=== PATIENT | female | born 1950 | race Caucasian/White ===

== ENCOUNTER 2021-07-23 16:28 | Inpatient (IN) | payer OTHER, SELFPAY ==
--- NOTE | ~2021-07-23 | CT_ITS ---
EXAMINATION: CT ANGIOGRAM OF THE CHEST WITH AND WITHOUT CONTRAST (CT PULMONARY ANGIOGRAM FOR PE) CLINICAL INFORMATION: Hypoxia, Covid. COMPARISON: Multiple priors. Most recent chest radiograph dated from 07/29/2021. TECHNIQUE: Prior to contrast administration, noncontrast localization images were obtained. Subsequently, multidetector volumetric imaging was performed from the thoracic inlet to below the diaphragms following the administration of 65 mL Omnipaque 350 intravenous contrast. No contrast reaction reported Sagittal, coronal, and MIP oblique sagittal reformatted images were obtained on the CT workstation, uploaded to PACS, and reviewed. This CT examination was performed using dose optimization techniques as appropriate, variously including the following: *Automated exposure control *Adjustment of mA and/or kV according to patient size (this includes techniques or standardized protocols for targeted exams where dose is matched to indication/reason for exam; i.e. extremities or head) *Use of iterative reconstruction technique Total exam dose-length product 401 mGy-cm FINDINGS: QUALITY OF STUDY/CONTRAST BOLUS: Suboptimal. The examination is limited by motion and overlying multifocal airspace opacities. Additionally, the attenuation achieved within the pulmonary arteries is somewhat lesser than for an ideal examination. There is also significant streak artifacts and beam hardening posterior to the superior vena cava which obscure the right main pulmonary artery. PULMONARY ARTERIES: As above, examination is significantly limited. There is a large filling defect within or adjacent to the origin of right superior lobar artery (image 199 of series 7) which could represent an emboli although evaluation is limited by motion and streak artifacts from the superior vena cava. THORACIC AORTA: Scattered atherosclerotic disease. The ascending thoracic aorta measures up to 3.9 cm in diameter. LUNG: Multifocal airspace opacities and small bilateral pleural effusions. No pneumothorax. The central airways are patent. MEDIASTINUM: Cardiomegaly. Coronary calcifications. No pericardial effusion. No mediastinal or hilar lymphadenopathy. No evidence of septal bowing or right heart strain. CHEST WALL/AXILLA: No axillary or internal mammary lymphadenopathy. OSSEOUS STRUCTURES: No acute or suspicious osseous abnormality. Thoracic spondylosis. UPPER ABDOMEN: Partially visualized cholelithiasis. No reflux of contrast into the hepatic veins to suggest elevated right heart pressures. CT/CT angio chest PE protocol IMPRESSION: Limited examination as above. There is an equivocal thrombus within the right superior lobar artery. Recommend repeat imaging to ensure accuracy of these findings. Multifocal airspace opacities and bilateral pleural effusions. Cholelithiasis. VTE: indeterminate This critical result was discussed with Dr Boss at 07/31/2021 9:09 PM and it was ascertained that the content and urgency of the report was understood at the time of direct communication.
--- NOTE | ~2021-07-23 | XR_ITS ---
EXAMINATION: XR CHEST CLINICAL INFORMATION: Covid infection. Low oxygen saturation COMPARISON: Previous chest x-ray most recent 07/23/2021 TECHNIQUE: Frontal view of the chest was obtained. FINDINGS: The cardiac and mediastinal contours are stable. There are new bilateral lower lung infiltrates compatible with Covid pneumonia. There is no pleural effusion or pneumothorax. There are degenerative changes of the spine. XR/XR chest 1V IMPRESSION: New bilateral pulmonary infiltrates compatible with Covid pneumonia.
--- NOTE | ~2021-07-23 | CT_ITS ---
EXAMINATION: CT ANGIOGRAM OF THE CHEST WITH AND WITHOUT CONTRAST (CT PULMONARY ANGIOGRAM FOR PE) CLINICAL INFORMATION: Prior CTA equivocal for VTE. COMPARISON: None TECHNIQUE: Prior to contrast administration, noncontrast localization images were obtained. Subsequently, multidetector volumetric imaging was performed from the thoracic inlet to below the diaphragms following the administration of 65 mL Omnipaque 350 intravenous contrast. Sagittal, coronal, and MIP oblique sagittal reformatted images were obtained on the CT workstation, uploaded to PACS, and reviewed. This CT examination was performed using dose optimization techniques as appropriate, variously including the following: *Automated exposure control *Adjustment of mA and/or kV according to patient size (this includes techniques or standardized protocols for targeted exams where dose is matched to indication/reason for exam; i.e. extremities or head) *Use of iterative reconstruction technique Total exam dose-length product 103 mGy-cm. FINDINGS: QUALITY OF STUDY/CONTRAST BOLUS: Satisfactory. PULMONARY ARTERIES: The previously identified suspected filling defect involving the right superior lobar pulmonary artery is not clearly identified on the present exam. There are no definite pulmonary emboli identified in the lobar or segmental pulmonary arteries. THORACIC AORTA: No aneurysm or dissection. LUNG: The diffuse patchy consolidation throughout both lungs is much improved. There are scattered smaller focal areas of consolidation and some scattered patchy ground-glass opacities. PLEURA: No pleural effusion or pneumothorax. MEDIASTINUM: Normal heart size. No pericardial effusion. No hilar or mediastinal lymphadenopathy. No evidence of septal bowing or right heart strain. CHEST WALL/AXILLA: No axillary or internal mammary lymphadenopathy. OSSEOUS STRUCTURES: No acute or suspicious osseous abnormality. UPPER ABDOMEN: Unremarkable. No reflux of contrast into the hepatic veins to suggest elevated right heart pressures. CT/CT angio chest PE protocol IMPRESSION: 1. No evidence of pulmonary emboli. 2. Marked interval improvement in diffuse patchy consolidation in both lungs. VTE: Negative
--- NOTE | ~2021-07-23 | US_ITS ---
EXAMINATION: US VENOUS WITH DOPPLER UPPER EXTREMITY, BILATERAL CLINICAL INFORMATION: Question PE. COMPARISON: CT angiogram 07/31/2021 and nuclear medicine perfusion scan 08/01/2021 TECHNIQUE: Ultrasound of the upper extremity is performed using compression sonography and color and pulse Doppler flow with assessment of augmentation of flow. There is also imaging and Doppler assessment of the jugular and subclavian veins. Spectral analysis with color-flow imaging is performed. FINDINGS: The right internal jugular, subclavian, axillary, brachial and basilic veins are patent. The cephalic vein is not visualized. The left internal jugular, subclavian, axillary, cephalic, basilic and brachial veins are patent. US/US venous duplex UE BI IMPRESSION: No DVT demonstrated in the bilateral upper extremities.
--- NOTE | ~2021-07-23 | US_ITS ---
EXAMINATION: US VENOUS ULTRASOUND WITH DOPPLER LOWER EXTREMITY, BILATERAL CLINICAL INFORMATION: Question PE COMPARISON: Previous CTA July 31 and Comparison perfusion scan 08/01/2021 TECHNIQUE: Ultrasound of the deep veins is performed from the hip to the calf with compression sonography and color and pulse Doppler assessment. Spectral analysis with color-flow imaging is performed. FINDINGS: RIGHT: There is normal venous compression and respiratory variation and augmented flow. The visualized common femoral vein, superficial femoral vein, profunda femoral vein, popliteal vein, and the trifurcation region shows no evidence of deep venous thrombosis. There is no significant popliteal fossa cyst. LEFT: There is normal venous compression and respiratory variation and augmented flow. The visualized common femoral vein, superficial femoral vein, profunda femoral vein, popliteal vein, and the trifurcation region shows no evidence of deep venous thrombosis. There is no significant popliteal fossa cyst. US/US venous duplex LE BI IMPRESSION: No DVT demonstrated in the bilateral lower extremity.
--- NOTE | ~2021-07-23 | XR_ITS ---
EXAMINATION: XR CHEST CLINICAL INFORMATION: Fever. Low O2. Covid positive. COMPARISON: Chest 07/26/2021. TECHNIQUE: Frontal view of the chest was obtained. FINDINGS: The lungs are hypoexpanded with patchy opacity seen in the right midlung, right lower lobe and lingular segments. Both upper lobes are unremarkable. The heart size and progress clarities normal. No gross bony abnormality seen. XR/XR chest 1V IMPRESSION: Bilateral lower lobe and right middle lobe patchy opacity/infiltrate slightly worse compared to 07/26/2021
--- NOTE | ~2021-07-23 | XR_ITS ---
EXAMINATION: XR CHEST CLINICAL INFORMATION: Covid. COMPARISON: Chest x-ray 01/02/2019, 03/04/2018 TECHNIQUE: Frontal portable view of the chest was obtained. 5:14 PM FINDINGS: There are several subtle small patchy airspace opacities in the mid peripheral right and left lung consistent with history of Covid positive. No pleural effusion. No pneumothorax. The heart size is normal. Cardiac and sternal contours normal. No pulmonary vascular congestion. XR/XR chest 1V IMPRESSION: Subtle multifocal bilateral airspace opacities consistent with history of Covid positive.
--- NOTE | ~2021-07-23 | NM_ITS ---
EXAMINATION: RADIONUCLIDE PULMONARY PERFUSION STUDY CLINICAL INDICATION: Hypoxia, AK I, shortness of breath, COVID-19. COMPARISON: No previous lung scan is available for comparison. A radiograph of the chest dated 07/29/[address] angiogram of the chest dated 07/31/2021 are available for comparison. PROCEDURE: Following the intravenous administration of 4.0 millicuries technetium 99m MAA, images of the chest were obtained in multiple projections using a gamma scintophoto camera. PERFUSION IMAGES: No segmental perfusion defects are present. Some heterogeneity in the distribution of activity is present bilaterally, slightly more prominently on the right. There are no focal or anatomic appearing perfusion defects. NM/NM pul perfusion IMPRESSION: Very low probability of pulmonary embolism.
[2021-07-23 16:37] VITALS: BP 132/108; PULSE 85; RESP 16; TEMP 37; O2SAT 98; BMI 26.1
--- NOTE | 2021-07-23 16:44 | ED.GENADULT ---
HPI - General Adult General Chief complaint: Altered Mental Status Stated complaint: ams Time Seen by Provider: 07/23/21 16:42 Source: EMS Mode of arrival: EMS Limitations: other (dementia) History of Present Illness HPI narrative: Patient history of dementia came from home stent by ICE PULLER as she noticed little bit off and confused. And had difficulty in getting to the wheelchair. Details are not available. Patient was tested COVID 19 positive 1 week ago. Patient otherwise alert awake oriented to x1 no obvious shortness of breath or distress noticed Related Data Allergies Allergy/AdvReac Type Severity Reaction Status Date / Time No Known Allergies Allergy Unverified 05/02/20 17:41 [No Known Allergies*] Review of Systems Review of Systems: Yes all other systems are reviewed and are negative [facility] Social History Social History Advance Directives: No Advance Directives Information Provided: No Physical Exam Vital Signs: Vital Signs: Last Vital Signs Temp 97.9 F 07/23/21 23:40 Pulse 97 07/23/21 23:40 Resp 18 07/23/21 23:40 BP 157/76 H 07/23/21 23:40 Pulse Ox 96 07/23/21 23:40 BMI result Body Mass Index 26.1 Appearance: Alert. Oriented X1. No acute distress. Eyes: No pallor or icterus HEENT: Pharynx normal. Oral Mucosa moist atraumatic Neck: Normal inspection. Neck supple. CVS: Normal heart rate and rhythm. Pulses normal. Respiratory: No respiratory distress. Equal air entry bilateral, no wheezing/rales/rhonchi Abdomen: Soft and nontender. Bowel sounds are present, Skin: Skin warm and dry. Normal skin color. Normal skin turgor. Extremities: No lower extremity edema. No calf tenderness Neuro: Oriented X 3. No motor deficit. No sensory deficit.No cerebellar signs , cranial nerves II-XII intact Medical Decision Making MDM Narrative Medical decision making narrative: Patient with COVID-19 with increased weakness labs are stable patient saturating 98% at room air increased weakness and difficulty in ambulation, no ICE PULLER at home , comes on during daytime unable to send the patient home without much family support will consult case management for disposition tomorrow Lab Data Lab results reviewed: Yes I reviewed the patient's lab results. Result diagrams: 07/23/21 17:04 07/23/21 17:46 Labs: Lab Results 07/23/21 07/23/21 07/23/21 Range/Units 17:04 17:04 17:46 WBC 3.3 L (4.8-10.8) X10*3/uL RBC 3.67 L (4.20-5.50) X10*6/uL Hgb 11.9 L (12.0-16.0) g/dl Hct 37.3 (37.0-47.0) % MCV 101.6 H (80.0-98.0) fL MCH 32.4 (27.0-33.0) pg MCHC 31.9 (31.0-35.0) g/dl RDW 12.4 (11.0-16.0) % Plt Count 157 L (160-400) X10*3/uL MPV 10.3 (9.4-12.3) fL Immature Gran % (Auto) 0.6 H (0.0-0.4) % Neut % (Auto) 79.5 H (45-73) % Lymph % (Auto) 13.0 L (20-40) % [place] % (Auto) 6.9 (2-11) % Eos % (Auto) 0.0 (0-4) % Baso % (Auto) 0.0 (0-2) % Lymph # (Auto) 0.4 L (1.2-4.9) X10*3/uL [place] # (Auto) 0.2 (0.1-1.2) X10*3/uL Eos # (Auto) 0.0 (0.0-0.4) X10*3/uL Baso # (Auto) 0.0 (0.0-0.2) X10*3/uL Abs Immat Gran (auto) 0.02 (0.00-0.03) X10*3/uL Absolute Neuts (auto) 2.6 (2.0-8.3) x10*3/uL Absolute Nucleated RBC 0.000 (0.0-0.012) X10*3/uL Nucleated RBC % (auto) 0.0 (0.0-0.2) /100WBC D-Dimer High Sensitivty NG/ML Sodium 145 (135-145) mmol/L Potassium 4.2 (3.3-5.1) mmol/L Chloride 101 (96-108) mmol/L Carbon Dioxide 31 H (22-29) mmol/L Anion Gap 17 (12-20) BUN 53 H (9-16) mg/dL Creatinine 1.26 (0.5-1.4) mg/dL Estim Creat Clear Calc 41.7 Estimated GFR 42 Random Glucose 90 (60-115) mg/dL Calcium 8.8 (8.4-10.2) mg/dL Magnesium 2.0 (1.6-2.6) mg/dL Total Bilirubin < 0.2 (0.0-1.0) mg/dL AST 30 (5-31) U/L ALT 23 (0-31) U/L Alkaline Phosphatase 41 (39-117) U/L Total Protein 5.7 L (6.5-8.0) g/dL Albumin 3.8 (3.5-5.0) g/dL Urine Color Urine Appearance Urine pH (5.0-8.0) Ur Specific [place] (1.005-1.025) Urine Protein (NEG-TRACE) MG/DL Urine Glucose (UA) (NEG) MG/DL Urine Ketones (NEG) MG/DL Urine Blood (NEG) Urine Nitrite (NEG) Ur Leukocyte Esterase (NEG) COVID-19 (DAMIÁN) Positive A (Negative) COVID-19 Clin Com See Note 07/23/21 07/23/21 Range/Units 17:46 20:48 WBC (4.8-10.8) X10*3/uL RBC (4.20-5.50) X10*6/uL Hgb (12.0-16.0) g/dl Hct (37.0-47.0) % MCV (80.0-98.0) fL MCH (27.0-33.0) pg MCHC (31.0-35.0) g/dl RDW (11.0-16.0) % Plt Count (160-400) X10*3/uL MPV (9.4-12.3) fL Immature Gran % (Auto) (0.0-0.4) % Neut % (Auto) (45-73) % Lymph % (Auto) (20-40) % [place] % (Auto) (2-11) % Eos % (Auto) (0-4) % Baso % (Auto) (0-2) % Lymph # (Auto) (1.2-4.9) X10*3/uL [place] # (Auto) (0.1-1.2) X10*3/uL Eos # (Auto) (0.0-0.4) X10*3/uL Baso # (Auto) (0.0-0.2) X10*3/uL Abs Immat Gran (auto) (0.00-0.03) X10*3/uL Absolute Neuts (auto) (2.0-8.3) x10*3/uL Absolute Nucleated RBC (0.0-0.012) X10*3/uL Nucleated RBC % (auto) (0.0-0.2) /100WBC D-Dimer High Sensitivty < 150 NG/ML Sodium (135-145) mmol/L Potassium (3.3-5.1) mmol/L Chloride (96-108) mmol/L Carbon Dioxide (22-29) mmol/L Anion Gap (12-20) BUN (9-16) mg/dL Creatinine (0.5-1.4) mg/dL Estim Creat Clear Calc Estimated GFR Random Glucose (60-115) mg/dL Calcium (8.4-10.2) mg/dL Magnesium (1.6-2.6) mg/dL Total Bilirubin (0.0-1.0) mg/dL AST (5-31) U/L ALT (0-31) U/L Alkaline Phosphatase (39-117) U/L Total Protein (6.5-8.0) g/dL Albumin (3.5-5.0) g/dL Urine Color YELLOW Urine Appearance CLEAR Urine pH 6.0 (5.0-8.0) Ur Specific [place] 1.025 (1.005-1.025) Urine Protein TRACE (NEG-TRACE) MG/DL Urine Glucose (UA) NEG (NEG) MG/DL Urine Ketones 5 (NEG) MG/DL Urine Blood NEG (NEG) Urine Nitrite NEG (NEG) Ur Leukocyte Esterase NEG (NEG) COVID-19 (DAMIÁN) (Negative) COVID-19 Clin Com Discharge Plan Discharge Clinical Impression: COVID-19, Weakness
[2021-07-23] MEDS: 0.9 % Sodium Chloride 1,000 ML 999 ML IVCONT (17:05)
[2021-07-23 17:09] LABS: MANUAL DIFF FLAG NO
[2021-07-23 17:11] LABS: Hematocrit 37.3 % (37.0-47.0); Hemoglobin 11.9 g/dl (12.0-16.0); Imm Gran Abs Auto 0.02 X10*3/uL (0.00-0.03); Imm Gran Pct Auto 0.6 % (0.0-0.4); Lymphocytes Absolute Auto 0.4 X10*3/uL (1.2-4.9); Mean Corpuscular HGB Conc 31.9 g/dl (31.0-35.0); Mean Corpuscular Hemoglobin 32.4 pg (27.0-33.0); Mean Corpuscular Volume 101.6 fL (80.0-98.0); Mean Platelet Volume 10.3 fL (9.4-12.3); Monocytes Absolute Auto 0.2 X10*3/uL (0.1-1.2); Monocytes Percent Auto 6.9 % (2-11); Neutrophils Absolute Auto 2.6 x10*3/uL (2.0-8.3); Neutrophils Percent Auto 79.5 % (45-73); Platelet Count 157 X10*3/uL (160-400); Red Blood Count 3.67 X10*6/uL (4.20-5.50); Red Cell Distribution Width 12.4 % (11.0-16.0); White Blood Count 3.3 X10*3/uL (4.8-10.8)
[2021-07-23 17:27] LABS: COVID-19 Test Positive (Negative); IDNOW Serial# 08D9AD1C
[2021-07-23 17:59] LABS: D Dimer High Sensitivity < 150 NG/ML
[2021-07-23 18:02] VITALS: BP 138/92; PULSE 86; RESP 16; TEMP 36.8; O2SAT 96
[2021-07-23 18:18] LABS: Alanine Aminotransferase 23 U/L (0-31); Albumin Level 3.8 g/dL (3.5-5.0); Alkaline Phosphatase 41 U/L (39-117); Anion Gap 17 (12-20); Aspartate Amino Transferase 30 U/L (5-31); Bilirubin Total < 0.2 mg/dL (0.0-1.0); Blood Urea Nitrogen 53 mg/dL (9-16); Calcium 8.8 mg/dL (8.4-10.2); Carbon Dioxide 31 mmol/L (22-29); Chloride 101 mmol/L (96-108); Creatinine Clr Calc Pharmacy 41.7; Estimated Glomerular Filt Rate 42; Glucose Random 90 mg/dL (60-115); Potassium 4.2 mmol/L (3.3-5.1); Sodium 145 mmol/L (135-145); Total Protein 5.7 g/dL (6.5-8.0)
[2021-07-23 19:52] VITALS: BP 174/89; PULSE 87; RESP 14; O2SAT 97
[2021-07-23 20:55] LABS: Appearance Urine CLEAR; Color Urine YELLOW; Glucose Urine UA NEG (NEG); Leukocyte Esterase Urine NEG (NEG); Nitrite Urine NEG (NEG); Specific Gravity - Urine 1.025 (1.005-1.025); Urine Blood NEG (NEG); Urine Ketones 5 MG/DL (NEG); Urine Protein TRACE MG/DL (NEG-TRACE)
--- NOTE | 2021-07-23 23:19 | MHC.CM.ED ---
CM was requested to assess patient and situation for pt to be discharged to home. Pt has dementia and MS. Pt is Covid positive x1week. HCP on file is pt sister Noy Sloan ([phone]). Noy does not know who the [employer] is, but does not believe she has [employer]IDE [employer]'s at night. Pt uses a W/C and was too weak to transfer to W/C. Noy does not know what agency provides care for her sister. States she no longer drives and cannot help much. Primary contact listed is Claudia Ruiz, who is a friend. Per Geo RN, he spoke with Claudia earlier this evening and said that pt cousin Andrew is the HCP and [employer]. [phone]. Will need to call Andrew in the morning, as pt is not safe to discharge home alone tonight. Dr. Hurd and Geo aware. CM will continue to follow for d/c needs.
[2021-07-23 23:40] VITALS: BP 157/76; PULSE 97; RESP 18; TEMP 36.6; O2SAT 96
[2021-07-24] VITALS (7 sets, daily range): BP systolic 147–177; BP diastolic 90–107; PULSE 100–115; RESP 16–19; TEMP 36.6–37.9; O2SAT 94–96
--- NOTE | 2021-07-24 08:00 | PC.NURSE ---
justina santiago from the home care agency called and would like a call back from case management after pt sees the pt [phone]
--- NOTE | 2021-07-24 08:48 | MHC.CM.ED ---
Patient remains in ER. Physical therapy eval pending. Left voicemail for Krysten Gtz at [facility] via telephone at [phone], requesting copy of patient's med list. Continue to monitor for d/c needs.
--- NOTE | 2021-07-24 10:18 | MHC.CM.ED ---
Received return telephone call from Krysten of [facility]. They will authorize rehab. They are [facility] None of these facilities are able to offer a bed due to Covid status. [facility] will allow referral to be broadcasted in order to find placement for patient. They will authorize a 1 time contract. Referral broadcasted to all facilities listed in [facility] as accepting positive covid patients within 15 miles of patient's home. Continue to monitor for d/c needs.
--- NOTE | 2021-07-24 10:41 | PHA.MEDREC ---
Pharmacy Consult ? Medication Reconciliation Pharmacy has completed the medication reconciliation.
--- NOTE | 2021-07-24 11:35 | MHC.CM.ED ---
[facility] will be able to consider patient on 07/26. [facility] able [facility] consider patient on 07/27. Continue to monitor for d/c needs.
--- NOTE | 2021-07-24 15:34 | PC.NURSE ---
Pt repositioned and inc care provided. Awaiting dispo, no complaints of pain at this time. Will continue to monitor.
--- NOTE | 2021-07-24 19:19 | PC.NURSE ---
PATIENT WAS GIVEN A BED BATH ,PATIENT WAS INCONTINENT OF URINE TIMES ONE .
--- NOTE | 2021-07-24 19:20 | PC.NURSE ---
PATIENT COULD NOT CHEW HER FOOD ,SO PBJ WAS GIVEN WITH APPLE JUICE AND MILK ,PATIENT NEEDED TO BE FED .
--- NOTE | 2021-07-24 22:53 | PC.NURSE ---
Noted by Melvin, EDT that pt needs 1:1 for feeding and has difficulty chewing. Alexa also endorsed that pt has frequent coughing w/ PO fluid intake. Speech eval ordered per protocol, situation endorsed to case mgmt team
[2021-07-25] VITALS (7 sets, daily range): BP systolic 140–156; BP diastolic 61–98; PULSE 80–109; RESP 14–17; TEMP 36.9–37.8; O2SAT 92–97
--- NOTE | 2021-07-25 02:21 | PC.NURSE ---
This PCT and PCT Lilia changed pt pure wick. Put on mesh underwear to help hold pure wick in place. Gave orange juice and made pt comfortable. Pt currently sleeping.
--- NOTE | 2021-07-25 06:09 | PC.NURSE ---
Checked pt to see if dry. She was dry pure wick still in place. Updated vitals. Pt has a 99.5 temp. Took one cover off.
[2021-07-25] MEDS: Acetaminophen 325 MG TABLET 650 MG PO (10:10)
--- NOTE | 2021-07-25 10:16 | PC.NURSE ---
pt given tylenol with water, swallowed but multiple coughing after swallowing. pt will be npo until swallow eval.
--- NOTE | 2021-07-25 13:17 | MHC.SL.SWA ---
Speech Pathologist Impression: Risk of Aspiration Oralpharyngeal Dysphagia Risk of Aspiration Due to: Reduced Cognition Dysphasia Diet Status: Downgrade Liquid Consistency and Strategies for Safe Swallow: Liquid Intake Recommendation: [place] Thick Liquid Intake Strategies: Small Sips No Straws Solid Food Consistency: Dietary Recommendations: Grnd/Mech Altered (NDD2) Additional Modifications to Solid Foods: Recommend GROUND/MECH ALTERED (NDD2) solids and NECTAR THICK liquids with pills CRUSHED in PUREE. Patient requires total 1:1 assistance feeding due to tremor of upper extremities and discoordination. Recommend aspiration precautions and following strategies: -small individual sips by cup or teaspoon -no straw -small bites of food -moisten food with sauce/gravy -check oral cavity for residue/pocketing -alternate bite of food with sip of liquid or cues for dry swallow -ensure oral cavity is clear before presenting more bites -upright 90 degree position during meals -minimize distractions during meals Message sent to MD, RD, RN, and kitchen staff RE: this change in diet textures. ADMINISTRATIVE SPECIALIST will continue to follow. Oral Medication Intake: Crushed with Puree Compensatory Strategies and Precautions to be Taken for Safe Swallow: Sitting Upright (90 deg) Double Swallow No Straw Liquids from Cup Liquids from Spoon Small Bites and Sips Alternate Liquids/Solids Rate of Ingestion Change Oral Check Supervision While Eating and Drinking for Safe Swallow: Total Assistance Swallowing Recommended Treatments: Compens. Strategy Educat. Recommendation for Speech: Inpatient Speech Therapy [employer] Et[employer] Developer Clinican/Clinical Fellow: No Supervisory Statement: I have reviewed and agree with the student/clinical fellow's documentation: N/A Speech Language Pathologist: Roro Barajas M.A., CCC-ADMINISTRATIVE SPECIALIST
--- NOTE | 2021-07-25 13:47 | MHC.CM.ED ---
Addendum entered by Vonnie Stokes 07/25/21 13:51: Auth for BLS transport has been authorized by [facility]. Original Note: Krysten Gtz of [facility] aware patient still in ER. Auth will have to be obtained over the weekend for placement by calling the primary [facility] program via telephone at [phone]. T/W reached out to [facility] to see if they are going to be able to offer a bed on 07/16. Still waiting to hear. Continue to monitor for d/c needs.
--- NOTE | 2021-07-25 14:09 | PC.NURSE ---
per speech: pt recommended diet is: ground/mech altered (nnd2) solids and netar thick liquids with pills crushed in puree. pt requires total 1:1 assistance feeding due to tremor of upper extremities and disco-ordination. recommend aspiration
--- NOTE | 2021-07-25 19:06 | PC.NURSE ---
PATIENT IS A 1:1 FEED ,PATIENT ATE 50 % OF MEALS ,DRANK 360 ML LIQUIDS .
--- NOTE | 2021-07-25 19:07 | PC.NURSE ---
PATIENT WAS GIVEN A BED BATH ,PATIENT WAS INCONTINENT OF LARGE AMOUNT OF URINE .
--- NOTE | 2021-07-25 22:17 | PC.NURSE ---
PATIENT WAS INC OF URINE ,PATIENT WAS CLEAN UP ,BEDDING WAS CHANGE ,PATIENT DRANK TOW CUPS OF JUICE ,NOW WATCHING TELEVISION .
--- NOTE | 2021-07-25 22:30 | PC.NURSE ---
I assumed care of this patient at 1900 from NABIL Gutierrez. The pt is awake, alert, oriented to person and place but not to time ( it's the year of the lord when asked the date). She makes eye contact with Rn and continually asks for juice to drink. She requires thickened liquids for PO fluids and we have provided her with thickened juice and remained with her while she takes it. I am unable to obtain an oxygen saturation with an accurate pleth on this patient - I attempted to place multiple different sensors on toes and fingers and her earlobe without being able to obtain an accurate pleth. there is no cyanosis, she is speaking in full sentences, RR 16 and non-labored. I placed 2L via nasal cannula and will continue to monitor. O2 sat with as bad pleth on the bedside monitor reveals a sat of 89% on room air. but, again, I am unsure of its accuracy. Will notify hospitalist and leave any further intervention up to him.
--- NOTE | 2021-07-25 22:40 | PC.NURSE ---
see vital signs. forehead sensor obtained and it reveals an accurate room air pleth of 86%, 2L nasal cannula placed and O2 sats up to 96% on 2L
[2021-07-26 05:18] VITALS: BP 165/97; PULSE 109; RESP 14; TEMP 36.9; O2SAT 92
[2021-07-26 07:44] VITALS: BP 146/91; PULSE 105; RESP 20; TEMP 37.3; O2SAT 94
[2021-07-26] MEDS: Acetaminophen 325 MG TABLET 650 MG PO (08:00)
--- NOTE | 2021-07-26 10:16 | MHC.CM.ED ---
Patient remains in ER. Patient continues to be asymptomatic. [facility] not able [facility] offer [facility] bed before Wednesday. T/W reached out to [facility] to see if they can offer a bed tomorrow. Continue to monitor for d/c needs.
[2021-07-26] MEDS: carBAMazepine ER 200 MG TAB.ER.12H 400 MG PO ×2 (10:49→23:03)
[2021-07-26] MEDS: Gabapentin 300 MG CAPSULE PO (10:49)
[2021-07-26] MEDS: hydroCHLOROthiazide 12.5 MG TABLET PO (10:50)
[2021-07-26] MEDS: Divalproex Sodium 500 MG TABLET.DR PO (10:50)
[2021-07-26] MEDS: Venlafaxine HCl ER 150 MG CAP.ER.24H PO (10:50)
[2021-07-26] MEDS: Cholecalciferol (Vitamin D3) 25 MCG TABLET 125 MCG PO (10:50)
[2021-07-26] MEDS: Mycophenolate Sodium 180 MG TABLET.DR 720 MG PO (10:55)
[2021-07-26] MEDS: Chlorhexidine Gluc Oral Rinse 15 ML MOUTHWASH BUCCAL (11:02)
[2021-07-26 14:09] VITALS: O2SAT 97
[2021-07-26 18:50] VITALS: O2SAT 92
--- NOTE | 2021-07-26 18:50 | PC.NURSE ---
Patient alert but confused is redirectable. Pleasant patient gets around in wheelchair at home. purewick in place for voiding. Patient was on 1l nasal cannula increased to 3l nasal cannula tonight oxygen was dropping on 1l to 88%. now 91-93% on 3l nasal cannula. Will continue to monitor.
[2021-07-26 19:02] VITALS: BP 160/85; PULSE 112; RESP 20; O2SAT 92
[2021-07-26] MEDS: Atorvastatin Calcium 40 MG TABLET PO (23:06)
[2021-07-26] MEDS: Gabapentin 400 MG CAPSULE PO (23:09)
[2021-07-26] MEDS: Divalproex Sodium 250 MG TABLET.DR PO (23:09)
[2021-07-26] MEDS: Mycophenolate Sodium 180 MG TABLET.DR 360 MG PO (23:10)
[2021-07-27 07:39] VITALS: BP 138/74; PULSE 105; RESP 16; TEMP 37.1; O2SAT 86
--- NOTE | 2021-07-27 09:08 | PC.NURSE ---
Pt found to be on 3L NC with sat's in the high 80's, MP at bedside, pt is Alert and pleasant to person and place. Denies any pain or SOB. Plan for ABG, O2 4L NC in low 90's. Probably admission, pericare and repositioned. Awaiting further orders. Will continue to monitor.
[2021-07-27] MEDS: Venlafaxine HCl ER 150 MG CAP.ER.24H PO (09:31)
[2021-07-27] MEDS: Divalproex Sodium 500 MG TABLET.DR PO (09:31)
[2021-07-27] MEDS: hydroCHLOROthiazide 12.5 MG TABLET PO (09:31)
[2021-07-27] MEDS: dexAMETHasone sod phosphate 4 MG/ML VIAL 8 MG IVPUSH (09:31)
[2021-07-27] MEDS: Chlorhexidine Gluc Oral Rinse 15 ML MOUTHWASH BUCCAL ×2 (09:32→23:45)
[2021-07-27] MEDS: Gabapentin 300 MG CAPSULE PO (09:32)
[2021-07-27] MEDS: Cholecalciferol (Vitamin D3) 25 MCG TABLET 125 MCG PO (09:32)
[2021-07-27 09:51] LABS: MANUAL DIFF FLAG NO
[2021-07-27 09:55] LABS: Basophils Percent Auto 0.2 % (0-2); Hematocrit 37.6 % (37.0-47.0); Hemoglobin 11.7 g/dl (12.0-16.0); Imm Gran Abs Auto 0.04 X10*3/uL (0.00-0.03); Imm Gran Pct Auto 0.9 % (0.0-0.4); Lymphocytes Absolute Auto 0.6 X10*3/uL (1.2-4.9); Lymphocytes Percent Auto 12.8 % (20-40); Mean Corpuscular HGB Conc 31.1 g/dl (31.0-35.0); Mean Corpuscular Hemoglobin 31.8 pg (27.0-33.0); Mean Corpuscular Volume 102.2 fL (80.0-98.0); Mean Platelet Volume 9.9 fL (9.4-12.3); Monocytes Absolute Auto 0.2 X10*3/uL (0.1-1.2); Monocytes Percent Auto 4.2 % (2-11); Neutrophils Absolute Auto 3.7 x10*3/uL (2.0-8.3); Neutrophils Percent Auto 81.9 % (45-73); Platelet Count 186 X10*3/uL (160-400); Red Blood Count 3.68 X10*6/uL (4.20-5.50); White Blood Count 4.5 X10*3/uL (4.8-10.8)
--- NOTE | 2021-07-27 09:55 | MHC.CM.ED ---
Received notification from [facility] that patient's O2 sat has dropped and will be admitted. Krysten Gtz of [facility] and patient's cousin, Andrew made aware via telephone. Continue to monitor for d/c needs.
[2021-07-27 10:02] LABS: D Dimer High Sensitivity 400 NG/ML
--- NOTE | 2021-07-27 10:33 | P.HPHOSP_ITS ---
History of Present Illness Date of Service: 07/27/21 Attending physician on admission: Paul [facility] Chief Complaint: Hypoxia 71-year-old woman with history of dementia presented from home sent in by her DIRECTOR OF ACCOUNTING with confusion. Apparently patient tested positive for COVID-19 1 week ago. Initially the plan was to send patient to short-term rehab however after a day of care she was found to be hypoxic at 86% and increased work of breathing. Chest x-ray showed no infiltrates bilaterally consistent with COVID-19 she was placed on 4 L of oxygen and given IV Decadron. She denied chest pain, shortness of breath, nausea, vomiting, diarrhea, fever, chills. She will be admitted for further management and treatment of acute hypoxic respiratory failure secondary to COVID-19. Review of Systems Verdana 4l Review of Systems: Verdana 4d Verdana 4d Denies any recent fever chills or decrease in appetite respiratory denies any shortness of breath coverage production cardiovascular Denied chest pain gastrointestinal denies any dysphagia abdominal pain nausea vomiting or diarrhea genitourinarygenitourinary denies any dysuria frequency or hematuria musculoskeletal denies any joint pain or swelling neuropsych denies any weakness or seizures all other systems reviewed are negative [facility] Medical History (Updated 07/27/21 @ 11:53 by Maria Elena Monique NP) Anxiety Depression Hypertension Multiple sclerosis Seizure disorder Family History (Updated 07/27/21 @ 11:53 by Maria Elena Monique NP) Father Coronary artery disease Hypertension Surgical History (Updated 07/27/21 @ 11:53 by Maria Elena Monique NP) H/O cataract extraction H/O inguinal hernia repair H/O left knee surgery History of appendectomy Social History (Updated 07/27/21 @ 11:54 by Maria Elena Monique NP) Household Members: None Household Members Other:: has DIRECTOR OF ACCOUNTING assistance at home Alcohol intake: never Patient Tobacco Use Status: Never used Tobacco Use of substances other than those prescribed or required for medical reasons: No Advance Directives: Yes Advance Directives on File: Yes Advance Directives Date on File: 07/24/21 Meds Allergies Allergy/AdvReac Type Severity Reaction Status Date / Time No Known Allergies Allergy Unverified 05/02/20 17:41 [No Known Allergies*] Active Medications: Current Medications Acetaminophen (Acetaminophen 325 Mg Tablet) 650 mg PO BID PRN PRN Reason: Pain, Mild (Pain Scale 1-3) Atorvastatin Calcium (Atorvastatin Calcium 40 Mg Tablet) 40 mg PO BEDTIME [facility] Last Admin: 07/26/21 23:06 Dose: 40 mg Documented by: Calcium Carbonate (Calcium Carbonate 500 Mg Tablet) 1,000 mg PO BEDTIME [facility] Last Admin: 07/26/21 23:09 Dose: Not Given Documented by: Carbamazepine (Carbamazepine Er 200 Mg Tab.Er.12h) 400 mg PO BID [facility] Last Admin: 07/26/21 23:03 Dose: 400 mg Documented by: Chlorhexidine Gluconate (Chlorhexidine Gluc Oral Rinse 15 Ml Mouthwash) 15 ml BUCCAL BID [facility] Last Admin: 07/27/21 09:32 Dose: 15 ml Documented by: Dexamethasone Sodium Phosphate (Dexamethasone Sod Phosphate 4 Mg/Ml Vial) 6 mg IVPUSH DAILY [facility] Divalproex Sodium (Divalproex Sodium 250 Mg Tablet.) 250 mg PO BEDTIME [facility] Last Admin: 07/26/21 23:09 Dose: 250 mg Documented by: Divalproex Sodium (Divalproex Sodium 500 Mg Tablet.) 500 mg PO DAILY [facility] Last Admin: 07/27/21 09:31 Dose: 500 mg Documented by: Gabapentin (Gabapentin 300 Mg Capsule) 300 mg PO DAILY [facility] Last Admin: 07/27/21 09:32 Dose: 300 mg Documented by: Gabapentin (Gabapentin 400 Mg Capsule) 400 mg PO BEDTIME [facility] Last Admin: 07/26/21 23:09 Dose: 400 mg Documented by: Heparin Sodium (Porcine) (Heparin Sodium,Porcine 5,000 Unit/Ml Vial) 5,000 unit SUBCUT Q12H [facility] Hydrochlorothiazide (Hydrochlorothiazide 12.5 Mg Tablet) 12.5 mg PO DAILY [facility]; Protocol Last Admin: 07/27/21 09:31 Dose: 12.5 mg Documented by: Mycophenolate Sodium (Mycophenolate Sodium 180 Mg Tablet.) 360 mg PO BEDTIME [facility] Last Admin: 07/26/21 23:10 Dose: 360 mg Documented by: Mycophenolate Sodium (Mycophenolate Sodium 180 Mg Tablet.) 720 mg PO DAILY [facility] Last Admin: 07/26/21 10:55 Dose: 720 mg Documented by: Non-Formulary Medication (Methylphenidate Hcl [Concerta]) 36 mg PO DAILY [facility] Ondansetron HCl (Ondansetron Hcl 4 Mg/2 Ml Vial) 4 mg IVPUSH Q8H PRN PRN Reason: Nausea and Vomiting Pharmacy Consult (Consult Rx Perform Med Rec) 1 each MISCELLANE ONCE PRN PRN Reason: Consult order Sodium Chloride (0.9 % Sodium Chloride Flush 3 Ml Syringe) 3 ml IVFLUSH QSHIFT [facility] Venlafaxine HCl (Venlafaxine Hcl Er 150 Mg Cap.Er.24h) 150 mg PO DAILY [facility] Last Admin: 07/27/21 09:31 Dose: 150 mg Documented by: Vitamin D (Cholecalciferol (Vitamin D3) 25 Mcg Tablet) 125 mcg PO DAILY [facility] Last Admin: 07/27/21 09:32 Dose: 125 mcg Documented by: Home Medications Medication Instructions Recorded Confirmed Last Taken Type acetaminophen 500 1,000 mg PO BID 07/24/21 07/24/21 Unknown History mg capsule PRN atorvastatin 40 40 mg PO BEDTIME 07/24/21 07/24/21 Unknown History mg tablet calcium carbonate 1,000 mg PO 07/24/21 07/24/21 Unknown History 500 mg calcium BEDTIME (1,250 mg) tablet carbamazepine 400 400 mg PO BID 07/24/21 07/24/21 Unknown History mg tablet,extended release,12 hr (Tegretol XR) chlorhexidine 15 ml BUCCAL BID 07/24/21 07/24/21 Unknown History gluconate 0.12 % mouthwash (Peridex) cholecalciferol 125 mcg PO DAILY 07/24/21 07/24/21 Unknown History (vitamin D3) 125 mcg (5,000 unit) tablet (Vitamin D3) denosumab 60 60 mg SUBCUT 07/24/21 07/24/21 Unknown History mg/mL [id number] subcutaneous syringe (Prolia) divalproex 250 mg 250 mg PO 07/24/21 07/24/21 Unknown History tablet,delayed BEDTIME release (Depakote) divalproex 250 mg 500 mg PO DAILY 07/24/21 07/24/21 Unknown History tablet,delayed release (Depakote) gabapentin 300 mg 300 mg PO DAILY 07/24/21 07/24/21 Unknown History capsule gabapentin 400 mg 400 mg PO 07/24/21 07/24/21 Unknown History capsule BEDTIME hydrochlorothiazi 12.5 mg PO DAILY 07/24/21 07/24/21 Unknown History de 12.5 mg tablet ibuprofen 600 mg 600 mg PO DAILY 07/24/21 07/24/21 Unknown History tablet PRN iron,carbonyl 65 1 tab PO DAILY 07/24/21 07/24/21 Unknown History mg-vitamin C 125 mg tablet,delayed release (Vitron-C) methylphenidate 36 mg PO DAILY 07/24/21 07/24/21 Unknown History HCl 36 mg tablet,extended release 24 hr (Concerta) mycophenolate 360 mg PO 07/24/21 07/24/21 Unknown History sodium 360 mg BEDTIME tablet,delayed release (Myfortic) mycophenolate 720 mg PO DAILY 07/24/21 07/24/21 Unknown History sodium 360 mg tablet,delayed release (Myfortic) venlafaxine 150 150 mg PO DAILY 07/24/21 07/24/21 Unknown History mg tablet,extended release 24 hr Physical Exam Verdana 4l Vital Signs and Narrative: Verdana 4d Verdana 4d Vital Signs: Verdana 4d Verdana 4Bd Last Vital Signs Verdana 4d [employer] Management System Operator New 4d [employer] Management System Operator New 4d Temp 98.8 F 07/27/21 07:39 [employer] Management System Operator New 4d Pulse 105 H 07/27/21 07:39 [employer] Management System Operator NewNew 4d Resp 16 07/27/21 07:39 BP 138/74 07/27/21 07:39 Pulse Ox 86 L 07/27/21 07:39 BMI result Body Mass Index 26.1 Appearing in no acute distress head is normocephalic atraumatic eyes pupils are PERRLA sclera is anicteric mouth throat mucous membranes are intact and moist neck is supple no lymphadenopathy, no JVD noted lung sounds are clear to auscultation heart regular rate rhythm, clear S1, S2 positive bowel sounds, abdomen is soft, nontender neuro patient is alert x3, no focal deficits Results Labs CBC and Chem 7: 07/28/21 06:43 07/28/21 06:43 Labs: Laboratory Results - last 24 hr 07/27/21 07/27/21 09:46 09:46 MCV 102.2 H MCH 31.8 MCHC 31.1 RDW 13.0 Plt Count 186 MPV 9.9 Immature Gran % (Auto) 0.9 H Neut % (Auto) 81.9 H Lymph % (Auto) 12.8 L [place] % (Auto) 4.2 Eos % (Auto) 0.0 Baso % (Auto) 0.2 Lymph # (Auto) 0.6 L [place] # (Auto) 0.2 Eos # (Auto) 0.0 Baso # (Auto) 0.0 Abs Immat Gran (auto) 0.04 H Absolute Neuts (auto) 3.7 Absolute Nucleated RBC 0.000 Nucleated RBC % (auto) 0.0 D-Dimer High Sensitivty 400 Assessment and Plan (1) Hypoxia: Status: Acute (2) COVID-19: Status: Acute 71 year old women admitted with acute hypoxic respiratory failure secondary to COVID 19 Acute hypoxic respiratory failure secondary to COVID-19 Supplemental oxygen Decadron Id consult Hypertension. Stable blood pressure Continue hydrochlorothiazide Hyperlipidemia Continue statin Multiple sclerosis On immunosuppressive medications Anxiety/ depression Continue home medications DVT prophylaxis with Lovenox Attending Dr. Marshall Quality Stroke Does the patient have a stroke diagnosis?: No VTE Prior VTE?: No VTE Risk Level:: Medical - moderate - high VTE Device Contraindication: Treatment Not Indicated VTE Drug Contraindication: N/A - Med Ordered
--- NOTE | 2021-07-27 10:33 | PM.IMHP ---
History of Present Illness Date of Service: 07/27/21 Attending physician on admission: Paul [facility] Chief Complaint: Hypoxia 71-year-old woman with history of dementia presented from home sent in by her LADIES SUIT OPERATOR with confusion. Apparently patient tested positive for COVID-19 1 week ago. Initially the plan was to send patient to short-term rehab however after a day of care she was found to be hypoxic at 86% and increased work of breathing. Chest x-ray showed no infiltrates bilaterally consistent with COVID-19 she was placed on 4 L of oxygen and given IV Decadron. She denied chest pain, shortness of breath, nausea, vomiting, diarrhea, fever, chills. She will be admitted for further management and treatment of acute hypoxic respiratory failure secondary to COVID-19. Review of Systems Review of Systems: Denies any recent fever chills or decrease in appetite respiratory denies any shortness of breath coverage production cardiovascular Denied chest pain gastrointestinal denies any dysphagia abdominal pain nausea vomiting or diarrhea genitourinary denies any dysuria frequency or hematuria musculoskeletal denies any joint pain or swelling neuropsych denies any weakness or seizures all other systems reviewed are negative [facility] Medical History (Updated 07/27/21 @ 11:53 by Maria Elena Monique NP) Anxiety Depression Hypertension Multiple sclerosis Seizure disorder Family History (Updated 07/27/21 @ 11:53 by Maria Elena Monique NP) Father Coronary artery disease Hypertension Surgical History (Updated 07/27/21 @ 11:53 by Maria Elena Monique NP) H/O cataract extraction H/O inguinal hernia repair H/O left knee surgery History of appendectomy Social History (Updated 07/27/21 @ 11:54 by Maria Elena Monique NP) Household Members: None Household Members Other:: has LADIES SUIT OPERATOR assistance at home Alcohol intake: never Patient Tobacco Use Status: Never used Tobacco Use of substances other than those prescribed or required for medical reasons: No Advance Directives: Yes Advance Directives on File: Yes Advance Directives Date on File: 07/24/21 Meds Allergies Allergy/AdvReac Type Severity Reaction Status Date / Time No Known Allergies Allergy Unverified 05/02/20 17:41 [No Known Allergies*] Active Medications: Current Medications Acetaminophen (Acetaminophen 325 Mg Tablet) 650 mg PO BID PRN PRN Reason: Pain, Mild (Pain Scale 1-3) Atorvastatin Calcium (Atorvastatin Calcium 40 Mg Tablet) 40 mg PO BEDTIME [facility] Last Admin: 07/26/21 23:06 Dose: 40 mg Documented by: Calcium Carbonate (Calcium Carbonate 500 Mg Tablet) 1,000 mg PO BEDTIME [facility] Last Admin: 07/26/21 23:09 Dose: Not Given Documented by: Carbamazepine (Carbamazepine Er 200 Mg Tab.Er.12h) 400 mg PO BID [facility] Last Admin: 07/26/21 23:03 Dose: 400 mg Documented by: Chlorhexidine Gluconate (Chlorhexidine Gluc Oral Rinse 15 Ml Mouthwash) 15 ml BUCCAL BID [facility] Last Admin: 07/27/21 09:32 Dose: 15 ml Documented by: Dexamethasone Sodium Phosphate (Dexamethasone Sod Phosphate 4 Mg/Ml Vial) 6 mg IVPUSH DAILY [facility] Divalproex Sodium (Divalproex Sodium 250 Mg Tablet.) 250 mg PO BEDTIME [facility] Last Admin: 07/26/21 23:09 Dose: 250 mg Documented by: Divalproex Sodium (Divalproex Sodium 500 Mg Tablet.) 500 mg PO DAILY [facility] Last Admin: 07/27/21 09:31 Dose: 500 mg Documented by: Gabapentin (Gabapentin 300 Mg Capsule) 300 mg PO DAILY [facility] Last Admin: 07/27/21 09:32 Dose: 300 mg Documented by: Gabapentin (Gabapentin 400 Mg Capsule) 400 mg PO BEDTIME [facility] Last Admin: 07/26/21 23:09 Dose: 400 mg Documented by: Heparin Sodium (Porcine) (Heparin Sodium,Porcine 5,000 Unit/Ml Vial) 5,000 unit SUBCUT Q12H [facility] Hydrochlorothiazide (Hydrochlorothiazide 12.5 Mg Tablet) 12.5 mg PO DAILY [facility]; Protocol Last Admin: 07/27/21 09:31 Dose: 12.5 mg Documented by: Mycophenolate Sodium (Mycophenolate Sodium 180 Mg Tablet.) 360 mg PO BEDTIME [facility] Last Admin: 07/26/21 23:10 Dose: 360 mg Documented by: Mycophenolate Sodium (Mycophenolate Sodium 180 Mg Tablet.) 720 mg PO DAILY [facility] Last Admin: 07/26/21 10:55 Dose: 720 mg Documented by: Non-Formulary Medication (Methylphenidate Hcl [Concerta]) 36 mg PO DAILY [facility] Ondansetron HCl (Ondansetron Hcl 4 Mg/2 Ml Vial) 4 mg IVPUSH Q8H PRN PRN Reason: Nausea and Vomiting Pharmacy Consult (Consult Rx Perform Med Rec) 1 each MISCELLANE ONCE PRN PRN Reason: Consult order Sodium Chloride (0.9 % Sodium Chloride Flush 3 Ml Syringe) [address] [facility] Venlafaxine HCl (Venlafaxine Hcl Er 150 Mg Cap.Er.24h) 150 mg PO DAILY [facility] Last Admin: 07/27/21 09:31 Dose: 150 mg Documented by: Vitamin D (Cholecalciferol (Vitamin D3) 25 Mcg Tablet) 125 mcg PO DAILY [facility] Last Admin: 07/27/21 09:32 Dose: 125 mcg Documented by: Home Medications Medication Instructions Recorded Confirmed Last Taken Type acetaminophen 500 mg capsule 1,000 mg PO BID PRN 07/24/21 07/24/21 Unknown History atorvastatin 40 mg tablet 40 mg PO BEDTIME 07/24/21 07/24/21 Unknown History calcium carbonate 500 mg calcium 1,000 mg PO BEDTIME 07/24/21 07/24/21 Unknown History (1,250 mg) tablet carbamazepine 400 mg 400 mg PO BID 07/24/21 07/24/21 Unknown History tablet,extended release,12 hr (Tegretol XR) chlorhexidine gluconate 0.12 % 15 ml BUCCAL BID 07/24/21 07/24/21 Unknown History mouthwash (Peridex) cholecalciferol (vitamin D3) 125 125 mcg PO DAILY 07/24/21 07/24/21 Unknown History mcg (5,000 unit) tablet (Vitamin D3) denosumab 60 mg/mL subcutaneous 60 mg SUBCUT [id number] 07/24/21 07/24/21 Unknown History syringe (Prolia) divalproex 250 mg tablet,delayed 250 mg PO BEDTIME 07/24/21 07/24/21 Unknown History release (Depakote) divalproex 250 mg tablet,delayed 500 mg PO DAILY 07/24/21 07/24/21 Unknown History release (Depakote) gabapentin 300 mg capsule 300 mg PO DAILY 07/24/21 07/24/21 Unknown History gabapentin 400 mg capsule 400 mg PO BEDTIME 07/24/21 07/24/21 Unknown History hydrochlorothiazide 12.5 mg tablet 12.5 mg PO DAILY 07/24/21 07/24/21 Unknown History ibuprofen 600 mg tablet 600 mg PO DAILY PRN 07/24/21 07/24/21 Unknown History iron,carbonyl 65 mg-vitamin C 125 1 tab PO DAILY 07/24/21 07/24/21 Unknown History mg tablet,delayed release (Vitron-C) methylphenidate HCl 36 mg 36 mg PO DAILY 07/24/21 07/24/21 Unknown History tablet,extended release 24 hr (Concerta) mycophenolate sodium 360 mg 360 mg PO BEDTIME 07/24/21 07/24/21 Unknown History tablet,delayed release (Myfortic) mycophenolate sodium 360 mg 720 mg PO DAILY 07/24/21 07/24/21 Unknown History tablet,delayed release (Myfortic) venlafaxine 150 mg tablet,extended 150 mg PO DAILY 07/24/21 07/24/21 Unknown History release 24 hr Physical Exam Vital Signs and Narrative: Vital Signs: Last Vital Signs Temp 98.8 F 07/27/21 07:39 Pulse 105 H 07/27/21 07:39 Resp 16 07/27/21 07:39 BP 138/74 07/27/21 07:39 Pulse Ox 86 L 07/27/21 07:39 BMI result Body Mass Index 26.1 Appearing in no acute distress head is normocephalic atraumatic eyes pupils are PERRLA sclera is anicteric mouth throat mucous membranes are intact and moist neck is supple no lymphadenopathy, no JVD noted lung sounds are clear to auscultation heart regular rate rhythm, clear S1, S2 positive bowel sounds, abdomen is soft, nontender neuro patient is alert x3, no focal deficits Results Labs CBC and Chem 7: 07/28/21 06:43 07/28/21 06:43 Labs: Laboratory Results - last 24 hr 07/27/21 07/27/21 09:46 09:46 MCV 102.2 H MCH 31.8 MCHC 31.1 RDW 13.0 Plt Count 186 MPV 9.9 Immature Gran % (Auto) 0.9 H Neut % (Auto) 81.9 H Lymph % (Auto) 12.8 L [place] % (Auto) 4.2 Eos % (Auto) 0.0 Baso % (Auto) 0.2 Lymph # (Auto) 0.6 L [place] # (Auto) 0.2 Eos # (Auto) 0.0 Baso # (Auto) 0.0 Abs Immat Gran (auto) 0.04 H Absolute Neuts (auto) 3.7 Absolute Nucleated RBC 0.000 Nucleated RBC % (auto) 0.0 D-Dimer High Sensitivty 400 Assessment and Plan (1) Hypoxia: Status: Acute (2) COVID-19: Status: Acute 71 year old women admitted with acute hypoxic respiratory failure secondary to COVID 19 Acute hypoxic respiratory failure secondary to COVID-19 Supplemental oxygen Decadron Id consult Hypertension. Stable blood pressure Continue hydrochlorothiazide Hyperlipidemia Continue statin Multiple sclerosis On immunosuppressive medications Anxiety/ depression Continue home medications DVT prophylaxis with Lovenox Attending Dr. Marshall Quality Stroke Does the patient have a stroke diagnosis?: No VTE Prior VTE?: No VTE Risk Level:: Medical - moderate - high VTE Device Contraindication: Treatment Not Indicated VTE Drug Contraindication: N/A - Med Ordered
[2021-07-27 10:56] LABS: Venous Blood Gas Refer to POC result
[2021-07-27 10:57] LABS: VBG HCO3 35 mmol/L (22-26); VBG pCO2 46 mmHg; VBG pH 7.49 (7.32-7.43); VBG pO2 62 mmHg
[2021-07-27 11:18] VITALS: BP 119/66; PULSE 95; RESP 16; TEMP 36.7; O2SAT 94
[2021-07-27] MEDS: carBAMazepine ER 200 MG TAB.ER.12H 400 MG PO (11:24)
[2021-07-27] MEDS: Mycophenolate Sodium 180 MG TABLET.DR 720 MG PO (11:24)
--- NOTE | 2021-07-27 11:24 | PC.NURSE ---
Inc care provided, T&Px2, pt offers no complaints at this time. Will continue to moniro
[2021-07-27 11:28] LABS: Alanine Aminotransferase 92 U/L (0-31); Albumin Level 3.2 g/dL (3.5-5.0); Alkaline Phosphatase 33 U/L (39-117); Anion Gap 16 (12-20); Aspartate Amino Transferase 192 U/L (5-31); Bilirubin Direct 0.2 mg/dL (0.0-0.5); Bilirubin Total 0.4 mg/dL (0.0-1.0); Blood Urea Nitrogen 27 mg/dL (9-16); C Reactive Protein 8.68 mg/dL (< or = 0.50); Calcium 8.2 mg/dL (8.4-10.2); Carbon Dioxide 29 mmol/L (22-29); Chloride 99 mmol/L (96-108); Creatinine Clr Calc Pharmacy 62.5; Estimated Glomerular Filt Rate > 60; Glucose Random 138 mg/dL (60-115); Magnesium 1.9 mg/dL (1.6-2.6); Potassium 3.6 mmol/L (3.3-5.1); Sodium 140 mmol/L (135-145); Total Protein 5.1 g/dL (6.5-8.0)
[2021-07-27] MEDS: Heparin Sodium,Porcine 5,000 UNIT/ML VIAL 5000 UNIT SUBCUT ×2 (12:54→23:45)
[2021-07-27 12:56] VITALS: BP 91/52; PULSE 89; RESP 16; O2SAT 98
--- NOTE | 2021-07-27 12:56 | PC.NURSE ---
Pt sleeping at this time. VS as documented. Awaiting bed assignment, call ramírez in reach. Will continue to monitor.
--- NOTE | 2021-07-27 14:11 | PC.NURSE ---
Pt sleeping at this time. No signs of distress, awaiting bed assignment. Call ramírez within reach. Will continue to monitor.
[2021-07-27] MEDS: 0.9 % Sodium Chloride Flush 3 ML SYRINGE IVFLUSH (16:10)
[2021-07-27 16:11] VITALS: BP 88/50; PULSE 90; RESP 16; O2SAT 98
--- NOTE | 2021-07-27 16:11 | PC.NURSE ---
Pt remains sleeping, refused lunch. 98% on 4L NC. Awaiting bed assignment. Will continue to monitor.
--- NOTE | 2021-07-27 17:05 | PC.NURSE ---
Pt sleeping, woken up to check on her and offer fluids. Pt T&Px2, fluids offered, nectar thick. Pt offers no complaints was slightly confused as to location and time, reoriented to place and time. Pt taken off O2 temporarily to blow her nose, O2 sat on room air was 88%, pt placed back on 4l NC with good results. Awaiting bed assignment. Call ramírez in place, will continue to monitor.
--- NOTE | 2021-07-27 21:30 | PC.NURSE ---
pt ate some dinner.
--- NOTE | 2021-07-27 22:30 | PC.NURSE ---
pt awake and watching tv. pt speaking in full sentences, respirations easy, n/l. skin w/d. pt eating dinner w/o difficulty. pt awaiting for room assignment. will continue to monitor pt,
[2021-07-27 23:18] VITALS: BP 82/53; PULSE 83; RESP 16; TEMP 36.5; O2SAT 93
[2021-07-27] MEDS: Atorvastatin Calcium 40 MG TABLET PO (23:45)
[2021-07-27] MEDS: Gabapentin 400 MG CAPSULE PO (23:45)
[2021-07-27] MEDS: Divalproex Sodium 250 MG TABLET.DR PO (23:45)
[2021-07-28 00:05] VITALS: BP 98/64; PULSE 83; RESP 18; O2SAT 96
--- NOTE | 2021-07-28 02:00 | PC.NURSE ---
PT IN NAD, RESPIRATIONS EASY, N/L, SKIN W/D. WILL CONTINUE TO MONITOR PT.
--- NOTE | 2021-07-28 05:21 | PC.NURSE ---
PT AWAKE AND FALLS BACK TO SLEEP. RESPIRATIONS EASY, N/L.
--- NOTE | 2021-07-28 06:04 | PC.NURSE ---
pt cleaned up and awake, respirations easy, n/l. skin w/d. will continue to monitor tp.
[2021-07-28 06:51] LABS: MANUAL DIFF FLAG NO
[2021-07-28 06:56] LABS: Eosinophils Percent Auto 0.2 % (0-4); Imm Gran Abs Auto 0.04 X10*3/uL (0.00-0.03); Imm Gran Pct Auto 0.6 % (0.0-0.4); Mean Corpuscular HGB Conc 31.3 g/dl (31.0-35.0); Mean Corpuscular Hemoglobin 31.6 pg (27.0-33.0); Mean Corpuscular Volume 101.3 fL (80.0-98.0); Mean Platelet Volume 10.1 fL (9.4-12.3); Monocytes Absolute Auto 0.3 X10*3/uL (0.1-1.2); Monocytes Percent Auto 4.9 % (2-11); Neutrophils Percent Auto 79.3 % (45-73); Platelet Count 182 X10*3/uL (160-400); Red Blood Count 3.16 X10*6/uL (4.20-5.50); Red Cell Distribution Width 12.8 % (11.0-16.0); White Blood Count 6.3 X10*3/uL (4.8-10.8)
[2021-07-28 07:15] LABS: Anion Gap 16 (12-20); Blood Urea Nitrogen 45 mg/dL (9-16); Calcium 8.2 mg/dL (8.4-10.2); Carbon Dioxide 32 mmol/L (22-29); Chloride 96 mmol/L (96-108); Creatinine Clr Calc Pharmacy 35.2; Estimated Glomerular Filt Rate 35; Glucose Random 86 mg/dL (60-115); Potassium 4.5 mmol/L (3.3-5.1); Sodium 139 mmol/L (135-145)
[2021-07-28 07:16] LABS: Lactate Dehydrogenase 612 U/L (122-220)
[2021-07-28 08:19] LABS: Ferritin 4228 ng/mL (10-250)
--- NOTE | 2021-07-28 09:28 | P.CDIC_ITS ---
CDI Concurrent Query Documentation Clarification: PHYSICIAN'S DOCUMENTATION REQUEST Date of Query: 07/28/21 0929 Patient Name: Keshia Murillo [facility] Admit Date: 07/27/21 Dear Doctor, A review of the medical record indicates additional documentation may be needed. Please review below and update the documentation accordingly. Clinical Indicators: Risk Factors/Clinical Indicators/Treatments Per ED note, confused, hypoxic, weak Based on the above, could you clarify in the Progress Notes which, if any of the following, is the most likely etiology of the confusion/altered mental status? * Encephalopathy - indicate type such as metabolic, toxic, septic, alcoholic, hypertensive, etc. * Acute delirium - indicate known or suspected etiology, such as postoperative, due to narcotics or other drugs, etc. * Acute or subacute confusional state due to (specify known or suspected etiology) * Other etiology (please specify) * Unable to determine Use of terms such as suspected, likely, concern for, or probable (associated with a specific diagnosis that is being evaluated, monitored, or treated as if it exists) are acceptable and can be coded in the inpatient setting, when documented at the time of discharge. Thank you, Danii Stiles RN Extension: [phone] Please use your independent medical judgment in providing your response. THIS QUERY IS PART OF THE PERMANENT MEDICAL RECORD Provider Response: Other Other Diagnosis: The patient did not have encepahlopathy during the time of admission. Unable to comment on her mental status during her the 3 to 4 days she was in the emergency room.
--- NOTE | 2021-07-28 10:13 | HO.PM.IMPN ---
Subjective Subjective Date of Service: 07/28/21 Review of Systems Follow up covid 19 No chest pain or shortness of breath resting in bed All other systems are reviewed and are negative Physical Exam Vital Signs: Vital Signs: Last Vital Signs Temp 97.7 F 07/27/21 23:18 Pulse 83 07/28/21 00:05 Resp 18 07/28/21 00:05 BP 98/64 07/28/21 00:05 Pulse Ox 96 07/28/21 00:05 BMI result Body Mass Index 26.1 Appearing in no acute distress lungs normal expansion heart regular rate rhythm, clear S1, S2 positive bowel sounds, abdomen is soft, nontender neuro patient is alert x3, no focal deficits Objective Data Active Medications Acetaminophen (Acetaminophen 325 Mg Tablet) 650 mg PO BID PRN PRN Reason: Pain, Mild (Pain Scale 1-3) Atorvastatin Calcium (Atorvastatin Calcium 40 Mg Tablet) 40 mg PO BEDTIME [facility] Last Admin: 07/27/21 23:45 Dose: 40 mg Documented by: NIKKI Calcium Carbonate (Calcium Carbonate 500 Mg Tablet) 1,000 mg PO BEDTIME [facility] Last Admin: 07/27/21 23:46 Dose: Not Given Documented by: NIKKI Non-Admin Reason: Patient Refused Carbamazepine (Carbamazepine Er 200 Mg Tab.Er.12h) 400 mg PO BID [facility] Last Admin: 07/28/21 00:00 Dose: Not Given Documented by: NIKKI Non-Admin Reason: Med Not Available Chlorhexidine Gluconate (Chlorhexidine Gluc Oral Rinse 15 Ml Mouthwash) 15 ml BUCCAL BID [facility] Last Admin: 07/27/21 23:45 Dose: 15 ml Documented by: NIKKI Dexamethasone Sodium Phosphate (Dexamethasone Sod Phosphate 4 Mg/Ml Vial) 6 mg IVPUSH DAILY [facility] Divalproex Sodium (Divalproex Sodium 250 Mg Tablet.) 250 mg PO BEDTIME [facility] Last Admin: 07/27/21 23:45 Dose: 250 mg Documented by: NIKKI Divalproex Sodium (Divalproex Sodium 500 Mg Tablet.) 500 mg PO DAILY [facility] Last Admin: 07/27/21 09:31 Dose: 500 mg Documented by: DESI Gabapentin (Gabapentin 300 Mg Capsule) 300 mg PO DAILY [facility] Last Admin: 07/27/21 09:32 Dose: 300 mg Documented by: DESI Gabapentin (Gabapentin 400 Mg Capsule) 400 mg PO BEDTIME [facility] Last Admin: 07/27/21 23:45 Dose: 400 mg Documented by: NIKKI Heparin Sodium (Porcine) (Heparin Sodium,Porcine 5,000 Unit/Ml Vial) 5,000 unit SUBCUT Q12H [facility] Last Admin: 07/27/21 23:45 Dose: 5,000 unit Documented by: NIKKI Mycophenolate Sodium (Mycophenolate Sodium 180 Mg Tablet.) 360 mg PO BEDTIME [facility] Last Admin: 07/27/21 23:53 Dose: Not Given Documented by: NIKKI Non-Admin Reason: Med Not Available Mycophenolate Sodium (Mycophenolate Sodium 180 Mg Tablet.) 720 mg PO DAILY [facility] Last Admin: 07/27/21 11:24 Dose: 720 mg Documented by: DESI Non-Formulary Medication (Methylphenidate Hcl [Concerta]) 36 mg PO DAILY [facility] Ondansetron HCl (Ondansetron Hcl 4 Mg/2 Ml Vial) 4 mg IVPUSH Q8H PRN PRN Reason: Nausea and Vomiting Pharmacy Consult (Consult Rx Perform Med Rec) 1 each MISCELLANE ONCE PRN PRN Reason: Consult order Sodium Chloride (0.9 % Sodium Chloride Flush 3 Ml Syringe) 3 ml IVFLUSH QSHIFT [facility] Last Admin: 07/28/21 00:28 Dose: Not Given Documented by: NIKKI Non-Admin Reason: Med Not Available Venlafaxine HCl (Venlafaxine Hcl Er 150 Mg Cap.Er.24h) 150 mg PO DAILY [facility] Last Admin: 07/27/21 09:31 Dose: 150 mg Documented by: DESI Vitamin D (Cholecalciferol (Vitamin D3) 25 Mcg Tablet) 125 mcg PO DAILY [facility] Last Admin: 07/27/21 09:32 Dose: 125 mcg Documented by: DESI Labs CBC & Chem 7: 07/28/21 06:43 07/28/21 06:43 Labs: Laboratory Results - last 24 hr 07/27/21 07/27/21 07/28/21 10:48 10:50 06:43 MCV 101.3 H MCH 31.6 MCHC 31.3 RDW 12.8 Plt Count 182 MPV 10.1 Immature Gran % (Auto) 0.6 H Neut % (Auto) 79.3 H Lymph % (Auto) 15.0 L [place] % (Auto) 4.9 Eos % (Auto) 0.2 Baso % (Auto) 0.0 Lymph # (Auto) 1.0 L [place] # (Auto) 0.3 Eos # (Auto) 0.0 Baso # (Auto) 0.0 Abs Immat Gran (auto) 0.04 H Absolute Neuts (auto) 5.0 Absolute Nucleated RBC 0.000 Nucleated RBC % (auto) 0.0 VBG pH 7.49 H VBG pCO2 46 VBG pO2 62 VBG HCO3 35 H VBG O2 Saturation 87.0 VBG Base Excess 11.0 Anion Gap 16 Estim Creat Clear Calc 62.5 Estimated GFR > 60 Random Glucose 138 H Calcium 8.2 L D Magnesium 1.9 Ferritin Total Bilirubin 0.4 Direct Bilirubin 0.2 AST 192 H ALT 92 H Alkaline Phosphatase 33 L Lactate Dehydrogenase C-Reactive Protein 8.68 H Total Protein 5.1 L Albumin 3.2 L 07/28/21 07/28/21 06:43 06:43 MCV MCH MCHC RDW Plt Count MPV Immature Gran % (Auto) Neut % (Auto) Lymph % (Auto) [place] % (Auto) Eos % (Auto) Baso % (Auto) Lymph # (Auto) [place] # (Auto) Eos # (Auto) Baso # (Auto) Abs Immat Gran (auto) Absolute Neuts (auto) Absolute Nucleated RBC Nucleated RBC % (auto) VBG pH VBG pCO2 VBG pO2 VBG HCO3 VBG O2 Saturation VBG Base Excess Anion Gap 16 Estim Creat Clear Calc 35.2 Estimated GFR 35 Random Glucose 86 Calcium 8.2 L Magnesium Ferritin 4228 H Total Bilirubin Direct Bilirubin AST ALT Alkaline Phosphatase Lactate Dehydrogenase 612 H C-Reactive Protein Total Protein Albumin Assessment and Plan (1) BEAN (acute kidney injury): Status: Acute (2) COVID-19: Status: Acute Assessment and Plan: 71 year old women admitted with acute hypoxic respiratory failure secondary to COVID 19 Acute hypoxic respiratory failure secondary to COVID-19. 94% on 4L Supplemental oxygen Decadron Id consult BEAN. Likely secondary to HCTZ Stopped trend Hypertension.?Low BP stop HCTZ follow BP closely Hyperlipidemia Continue statin Multiple sclerosis On immunosuppressive medications Anxiety/ depression Continue home medications DVT prophylaxis with Lovenox Attending Dr. Bernstein Quality Stroke Does the patient have a stroke diagnosis?: No VTE Prior VTE?: No VTE Risk Level:: Medical - moderate - high VTE Device Contraindication: Treatment Not Indicated VTE Drug Contraindication: N/A - Med Ordered
[2021-07-28] MEDS: Gabapentin 300 MG CAPSULE PO (10:45)
[2021-07-28] MEDS: Chlorhexidine Gluc Oral Rinse 15 ML MOUTHWASH BUCCAL ×2 (10:45→20:39)
[2021-07-28] MEDS: Cholecalciferol (Vitamin D3) 25 MCG TABLET 125 MCG PO (10:46)
[2021-07-28] MEDS: dexAMETHasone sod phosphate 4 MG/ML VIAL 6 MG IVPUSH (10:47)
[2021-07-28] MEDS: Heparin Sodium,Porcine 5,000 UNIT/ML VIAL 5000 UNIT SUBCUT ×2 (10:47→23:35)
[2021-07-28] MEDS: Divalproex Sodium 500 MG TABLET.DR PO (10:48)
[2021-07-28] MEDS: Venlafaxine HCl ER 150 MG CAP.ER.24H PO (10:48)
[2021-07-28] MEDS: Mycophenolate Sodium 180 MG TABLET.DR 720 MG PO (10:50)
[2021-07-28] MEDS: Acetaminophen 325 MG TABLET 650 MG PO (10:50)
[2021-07-28] MEDS: carBAMazepine ER 200 MG TAB.ER.12H 400 MG PO ×2 (10:51→20:40)
[2021-07-28] MEDS: 0.9 % Sodium Chloride Flush 3 ML SYRINGE IVFLUSH ×3 (10:59→23:35)
[2021-07-28 11:09] VITALS: BP 98/66; PULSE 88; RESP 18; O2SAT 95
--- NOTE | 2021-07-28 12:13 | MHC.CM.PN ---
Patient originally came into the ER on 07/25 due to increased weakness due to Covid and MS exacerbation. Patient lives at home. Is active with [facility]. Patient's cousin/HCP, Andrew can be reached at [phone]. Andrew is also patient's [employer]ER. Due to increased weakness, patient could not safely go home. Patient tested positive for covid on 07/16. She was going to be able to transfer to [facility] on 07/27. However she became hypoxic and they admitted her. Katey will still need STR. [facility] is contracted with [facility] Referrals are in [employer]. All facilities all following. Patient will need BLS transport at d/c. IMM explained to Andrew and sent via certified mail. HCP on file PCP is Dr Bowen at the [facility] program. Continue to monitor for d/c needs.
--- NOTE | 2021-07-28 15:04 | MHC.SL.SWA ---
Speech Pathologist Impression: Risk of Aspiration Oralpharyngeal Dysphagia Risk of Aspiration Due to: Reduced Cognition Dysphasia Diet Status: Upgrade Liquid Consistency and Strategies for Safe Swallow: Liquid Intake Recommendation: Thin Liquid Intake Strategies: Small Sips Solid Food Consistency: Dietary Recommendations: Regular Additional Modifications to Solid Foods: Recommend UPGRADE to REGULAR solids and THIN liquids, with pills WHOLE in PUREE. Patient requires total 1:1 assistance feeding due to tremor of upper extremities and discoordination. Recommend aspiration precautions and following strategies: -small individual sips by cup or teaspoon -small bites of food -moisten food with sauce/gravy as needed -alternate bite of food with sip of liquid as needed -ensure oral cavity is clear before presenting more bites -upright 90 degree position during meals Message sent to MD, RD, RN, and kitchen staff RE: this change in diet textures. Diet order updated by SHIPPING ORDER CLERK. SHIPPING ORDER CLERK to f/u with nursing tomorrow morning to ensure tolerance. Oral Medication Intake: Whole with Puree Compensatory Strategies and Precautions to be Taken for Safe Swallow: Sitting Upright (90 deg) Double Swallow Liquids from Cup Liquids from Spoon Small Bites and Sips Alternate Liquids/Solids Rate of Ingestion Change Supervision While Eating and Drinking for Safe Swallow: Total Assistance Swallowing Recommended Treatments: Compens. Strategy Educat. Recommendation for Speech: 1 f/u with nursing to ensure tolerance of unmodified diet before discharge from Clinical Psychologist Private Practice Clinican/Clinical Fellow: No Supervisory Statement: I have reviewed and agree with the student/clinical fellow's documentation: N/A Speech Language Pathologist: Roro Barajas M.A., CCC-SHIPPING ORDER CLERK
--- NOTE | 2021-07-28 15:28 | PC.NURSE ---
Pt alert and oriented x4, calm and cooperative. Pt denies pain, states uncomfortable in the stretcher. Vitals stable, 88 heart rate, respirations 20, BP 102/62, O2 sat on 4 liters NC 91%. Pt trailed on thin liquids and tolerated well, no coughing noted. NSR on tele monitor.
--- NOTE | 2021-07-28 15:34 | PC.NURSE ---
Call x1 to [facility] at [phone], waiting for call back
[2021-07-28 16:00] VITALS: BP 111/62; PULSE 88; RESP 18; TEMP 36.3; O2SAT 95
[2021-07-28 16:01] VITALS: BP 102/62; PULSE 87; RESP 22; TEMP 36.5; O2SAT 99
[2021-07-28 19:16] VITALS: BP 106/67; PULSE 83; RESP 18; TEMP 36.2; O2SAT 90
[2021-07-28] MEDS: Gabapentin 400 MG CAPSULE PO (20:40)
[2021-07-28] MEDS: Mycophenolate Sodium 180 MG TABLET.DR 360 MG PO (20:40)
[2021-07-28] MEDS: Divalproex Sodium 250 MG TABLET.DR PO (20:40)
[2021-07-28] MEDS: Atorvastatin Calcium 40 MG TABLET PO (20:41)
[2021-07-28 23:30] VITALS: BP 118/76; PULSE 108; RESP 20; TEMP 36.6; O2SAT 97
[2021-07-29] VITALS (7 sets, daily range): BP systolic 101–143; BP diastolic 55–79; PULSE 83–112; RESP 18–22; TEMP 36.5–38.9; O2SAT 87–98
[2021-07-29] MEDS: Acetaminophen 325 MG TABLET 650 MG PO ×2 (04:25→11:03)
[2021-07-29 04:33] LABS: Anion Gap 15 (12-20); Blood Urea Nitrogen 36 mg/dL (9-16); Calcium 8.8 mg/dL (8.4-10.2); Carbon Dioxide 31 mmol/L (22-29); Chloride 93 mmol/L (96-108); Creatinine Clr Calc Pharmacy 56.4; Estimated Glomerular Filt Rate 60; Glucose Random 91 mg/dL (60-115); Lactate Dehydrogenase 496 U/L (122-220); Potassium 3.7 mmol/L (3.3-5.1); Sodium 135 mmol/L (135-145)
--- NOTE | 2021-07-29 04:50 | PC.NURSE ---
coretext to Dr. Boss re: pt's elevated temp of 102.0 temporal, c/o chills , sinus tachycardia 110's and no previous blood cultures drawn. new orders for blood cultures x 2 received and drawn & tylenol 650mg po given crushed in pudding - pt took will continue to monitor.
[2021-07-29 06:05] LABS: Ferritin 3640 ng/mL (10-250)
[2021-07-29 09:24] LABS: Lactic Acid 1.8 mmol/L (0.5-2.0)
--- NOTE | 2021-07-29 09:37 | P.PNIM_ITS ---
Subjective Subjective Date of Service: 07/29/21 Review of Systems Follow up covid 19 No chest pain or shortness of breath resting in bed All other systems are reviewed and are negative Physical Exam Vital Signs: Vital Signs: Last Vital Signs Temp 100.5 F H 07/29/21 07:22 Pulse 101 H 07/29/21 07:22 Resp 22 H 07/29/21 07:22 BP 106/56 L 07/29/21 07:22 Pulse Ox 88 L 07/29/21 07:22 BMI result Body Mass Index 26.1 Appearing in no acute distress lung sounds are clear to auscultation heart regular rate rhythm, clear S1, S2 positive bowel sounds, abdomen is soft, nontender neuro patient is alert x3, no focal deficits Objective Data Active Medications Acetaminophen (Acetaminophen 325 Mg Tablet) 650 mg PO BID PRN PRN Reason: Pain, Mild (Pain Scale 1-3) Last Admin: 07/29/21 04:25 Dose: 650 mg Documented by: RIMA Atorvastatin Calcium (Atorvastatin Calcium 40 Mg Tablet) 40 mg PO BEDTIME [facility] Last Admin: 07/28/21 20:41 Dose: 40 mg Documented by: EDWARD Calcium Carbonate (Calcium Carbonate 500 Mg Tablet) 1,000 mg PO BEDTIME [facility] Last Admin: 07/28/21 20:41 Dose: 1,000 mg Documented by: EDWARD Carbamazepine (Carbamazepine Er 200 Mg Tab.Er.12h) 400 mg PO BID [facility] Last Admin: 07/28/21 20:40 Dose: 400 mg Documented by: EDWARD Chlorhexidine Gluconate (Chlorhexidine Gluc Oral Rinse 15 Ml Mouthwash) 15 ml BUCCAL BID [facility] Last Admin: 07/28/21 20:39 Dose: 15 ml Documented by: EDWARD Dexamethasone Sodium Phosphate (Dexamethasone Sod Phosphate 4 Mg/Ml Vial) 6 mg IVPUSH DAILY [facility] Last Admin: 07/28/21 10:47 Dose: 6 mg Documented by: THEA Divalproex Sodium (Divalproex Sodium 250 Mg Tablet.) 250 mg PO BEDTIME [facility] Last Admin: 07/28/21 20:40 Dose: 250 mg Documented by: EDWARD Divalproex Sodium (Divalproex Sodium 500 Mg Tablet.) 500 mg PO DAILY [facility] Last Admin: 07/28/21 10:48 Dose: 500 mg Documented by: THEA Gabapentin (Gabapentin 300 Mg Capsule) 300 mg PO DAILY [facility] Last Admin: 07/28/21 10:45 Dose: 300 mg Documented by: THEA Gabapentin (Gabapentin 400 Mg Capsule) 400 mg PO BEDTIME [facility] Last Admin: 07/28/21 20:40 Dose: 400 mg Documented by: EDWARD Heparin Sodium (Porcine) (Heparin Sodium,Porcine 5,000 Unit/Ml Vial) 5,000 unit SUBCUT Q12H [facility] Last Admin: 07/28/21 23:35 Dose: 5,000 unit Documented by: RIMA Vancomycin HCl 1,250 mg/ (Sodium Chloride) 250 mls @ 166.667 mls/hr IV Q24H [facility] Piperacillin Sod/Tazobactam (Sod 4.5 gm/ Sodium Chloride) 100 mls @ 200 mls/hr IV Q6H [facility] Mycophenolate Sodium (Mycophenolate Sodium 180 Mg Tablet.) 360 mg PO BEDTIME [facility] Last Admin: 07/28/21 20:40 Dose: 360 mg Documented by: EDWARD Mycophenolate Sodium (Mycophenolate Sodium 180 Mg Tablet.) 720 mg PO DAILY [facility] Last Admin: 07/28/21 10:50 Dose: 720 mg Documented by: THEA Non-Formulary Medication (Methylphenidate Hcl [Concerta]) 36 mg PO DAILY [facility] Ondansetron HCl (Ondansetron Hcl 4 Mg/2 Ml Vial) 4 mg IVPUSH Q8H PRN PRN Reason: Nausea and Vomiting Pharmacy Consult (Consult Rx Perform Med Rec) 1 each MISCELLANE ONCE PRN PRN Reason: Consult order Pharmacy Consult (Consult Rx Vancomycin Dosing) 1 each MISCELLANE DAILY PRN PRN Reason: Consult order Sodium Chloride (0.9 % Sodium Chloride Flush 3 Ml Syringe) 3 ml IVFLUSH QSHIFT [facility] Last Admin: 07/28/21 23:35 Dose: 3 ml Documented by: RIMA Venlafaxine HCl (Venlafaxine Hcl Er 150 Mg Cap.Er.24h) 150 mg PO DAILY [facility] Last Admin: 07/28/21 10:48 Dose: 150 mg Documented by: THEA Vitamin D (Cholecalciferol (Vitamin D3) 25 Mcg Tablet) 125 mcg PO DAILY [facility] Last Admin: 07/28/21 10:46 Dose: 125 mcg Documented by: THEA Labs CBC & Chem 7: 07/28/21 06:43 07/29/21 04:10 Labs: Laboratory Results - last 24 hr 07/29/21 07/29/21 04:10 09:01 Anion Gap 15 Estim Creat Clear Calc 56.4 Estimated GFR 60 Random Glucose 91 Lactic Acid 1.8 Calcium 8.8 D Ferritin 3640 H Lactate Dehydrogenase 496 H Assessment and Plan (1) BEAN (acute kidney injury): Status: Acute (2) COVID-19: Status: Acute (3) BEAN (acute kidney injury): Status: Acute Assessment and Plan: 71 year old women admitted with acute hypoxic respiratory failure secondary to COVID 19 Sepsis. fever, tachycardia, tachypnea. Normal lactic acid New blood cultures pending Vancomycin and Zosyn added for broad coverage CXR worsening pna Acute hypoxic respiratory failure secondary to COVID-19 pneumonia. Supplemental oxygen Decadron Id consult pending CXR worsening pna added Vancomycin and zosyn BEAN. trending down Likely secondary to HCTZ Stopped Hypertension.?Low BP stop HCTZ follow BP closely Hyperlipidemia Continue statin Multiple sclerosis On immunosuppressive medications Hold for now Anxiety/ depression Continue home medications DVT prophylaxis with heparin Attending Dr. Bernstein Quality Stroke Does the patient have a stroke diagnosis?: No VTE Prior VTE?: No VTE Risk Level:: Medical - moderate - high VTE Device Contraindication: Treatment Not Indicated VTE Drug Contraindication: N/A - Med Ordered
[2021-07-29] MEDS: Divalproex Sodium 500 MG TABLET.DR PO (11:01)
[2021-07-29] MEDS: Venlafaxine HCl ER 150 MG CAP.ER.24H PO (11:01)
[2021-07-29] MEDS: 0.9 % Sodium Chloride Flush 3 ML SYRINGE IVFLUSH ×3 (11:02→23:18)
[2021-07-29] MEDS: carBAMazepine ER 200 MG TAB.ER.12H 400 MG PO ×2 (11:02→21:25)
[2021-07-29] MEDS: Chlorhexidine Gluc Oral Rinse 15 ML MOUTHWASH BUCCAL (11:02)
[2021-07-29] MEDS: dexAMETHasone sod phosphate 4 MG/ML VIAL 6 MG IVPUSH (11:03)
[2021-07-29] MEDS: Gabapentin 300 MG CAPSULE PO (11:03)
[2021-07-29] MEDS: Cholecalciferol (Vitamin D3) 25 MCG TABLET 125 MCG PO (11:08)
[2021-07-29] MEDS: Heparin Sodium,Porcine 5,000 UNIT/ML VIAL 5000 UNIT SUBCUT ×2 (11:12→21:25)
[2021-07-29] MEDS: Piperacillin Sodium/Tazobactam 4.5 GM in 0.9 % Sodium Chloride 100 ML IV ×3 (11:14→23:17)
[2021-07-29] MEDS: vancomycin HCL 1,250 MG in 0.9 % Sodium Chloride 250 ML 166.67 MG IV (11:50)
[2021-07-29 12:26] LABS: Procalcitonin 0.07 ng/mL
--- NOTE | 2021-07-29 13:19 | P.CNID_ITS ---
History of Present Illness Data of Consult Service Date: 07/28/21 Requesting physician: Maria Elena Monique Primary Care Provider: None Physician HPI Reason for consult: shortness of breath She presents found confused with hypoxia and oxygen saturation in 80s She has no fever or chills She is now day 10 COVID with symptoms started on symptoms on 07/20. She is on 4 liters NC Review of Systems Review of Systems: Yes Unobtainable due to mental condition PMFSH Past Medical History Medical History Anxiety Depression Hypertension Multiple sclerosis Seizure disorder Family History Family History Father Coronary artery disease Hypertension Family history: reviewed and not pertinent Surgical History Surgical History H/O cataract extraction H/O inguinal hernia repair H/O left knee surgery History of appendectomy Social History Social History Household Members: None Household Members Other:: has [employer] assistance at home Housing: Apartment Do you presently have visiting nurse or other home services: Yes Alcohol intake: never Patient Tobacco Use Status: Never used Tobacco Smoked in Last 30 Days: No Patient Interested in Nicotine Replacement: No Patient Given Instructions on How to Stop Smoking: No Second Hand Smoke Exposure: No Use of substances other than those prescribed or required for medical reasons: No Currently Displaying Signs/Symptoms of Drug Intoxication Withdrawal: No Any prior treatment program specific to substance use: No Have you been hit, kicked, punched, or otherwise hurt by someone within the past year? If so, by whom?: No Do you feel safe in your current relationship?: No Current Relationship Is there a partner from a previous relationship who is making you feel unsafe now?: No Are you made to feel afraid or neglected: No Advance Directives: Yes Advance Directives on File: Yes Advance Directives Date on File: 07/24/21 Do you have thoughts of harming others: None Do you have a plan to hurt others: No Plan Recently lost weight without trying: No Eating poorly because of decreased appetite: No Nutrition Risks: No Nutritional Risk Patient : No : No Poor oral hygiene: No service: No Current occupational status: disabled Meds Allergies Allergy/AdvReac Type Severity Reaction Status Date / Time No Known Allergies Allergy Unverified 05/02/20 17:41 [No Known Allergies*] Active Medications: Current Medications Acetaminophen (Acetaminophen 325 Mg Tablet) 650 mg PO Q4H PRN PRN Reason: Pain, Mild (Pain Scale 1-3) Last Admin: 07/29/21 11:03 Dose: 650 mg Documented by: Atorvastatin Calcium (Atorvastatin Calcium 40 Mg Tablet) 40 mg PO BEDTIME [facility] Last Admin: 07/28/21 20:41 Dose: 40 mg Documented by: Calcium Carbonate (Calcium Carbonate 500 Mg Tablet) 1,000 mg PO BEDTIME [facility] Last Admin: 07/28/21 20:41 Dose: 1,000 mg Documented by: Carbamazepine (Carbamazepine Er 200 Mg Tab.Er.12h) 400 mg PO BID [facility] Last Admin: 07/29/21 11:02 Dose: 400 mg Documented by: Chlorhexidine Gluconate (Chlorhexidine Gluc Oral Rinse 15 Ml Mouthwash) 15 ml BUCCAL BID [facility] Last Admin: 07/29/21 11:02 Dose: 15 ml Documented by: Dexamethasone Sodium Phosphate (Dexamethasone Sod Phosphate 4 Mg/Ml Vial) 6 mg IVPUSH DAILY [facility] Last Admin: 07/29/21 11:03 Dose: 6 mg Documented by: Divalproex Sodium (Divalproex Sodium 250 Mg Tablet.) 250 mg PO BEDTIME [facility] Last Admin: 07/28/21 20:40 Dose: 250 mg Documented by: Divalproex Sodium (Divalproex Sodium 500 Mg Tablet.) 500 mg PO DAILY [facility] Last Admin: 07/29/21 11:01 Dose: 500 mg Documented by: Gabapentin (Gabapentin 300 Mg Capsule) 300 mg PO DAILY [facility] Last Admin: 07/29/21 11:03 Dose: 300 mg Documented by: Gabapentin (Gabapentin 400 Mg Capsule) 400 mg PO BEDTIME [facility] Last Admin: 07/28/21 20:40 Dose: 400 mg Documented by: Heparin Sodium (Porcine) (Heparin Sodium,Porcine 5,000 Unit/Ml Vial) 5,000 unit SUBCUT Q12H [facility] Last Admin: 07/29/21 11:12 Dose: 5,000 unit Documented by: Piperacillin Sod/Tazobactam (Sod 4.5 gm/ Sodium Chloride) 100 mls @ 200 mls/hr IV Q6H [facility] Last Admin: 07/29/21 11:24 Dose: Not Given Documented by: Vancomycin HCl 1,250 mg/ (Sodium Chloride) 250 mls @ 166.667 mls/hr IV Q24H [facility] Last Admin: 07/29/21 11:50 Dose: 166.67 mls/hr Documented by: Mycophenolate Sodium (Mycophenolate Sodium 180 Mg Tablet.) 360 mg PO BEDTIME [facility] Last Admin: 07/28/21 20:40 Dose: 360 mg Documented by: Mycophenolate Sodium (Mycophenolate Sodium 180 Mg Tablet.) 720 mg PO DAILY [facility] Last Admin: 07/29/21 11:10 Dose: Not Given Documented by: Non-Formulary Medication (Methylphenidate Hcl [Concerta]) 36 mg PO DAILY [facility] Ondansetron HCl (Ondansetron Hcl 4 Mg/2 Ml Vial) 4 mg IVPUSH Q8H PRN PRN Reason: Nausea and Vomiting Pharmacy Consult (Consult Rx Perform Med Rec) 1 each MISCELLANE ONCE PRN PRN Reason: Consult order Pharmacy Consult (Consult Rx Vancomycin Dosing) 1 each MISCELLANE DAILY PRN PRN Reason: Consult order Sodium Chloride (0.9 % Sodium Chloride Flush 3 Ml Syringe) 3 ml IVFLUSH QSHIFT [facility] Last Admin: 07/29/21 11:02 Dose: 3 ml Documented by: Venlafaxine HCl (Venlafaxine Hcl Er 150 Mg Cap.Er.24h) 150 mg PO DAILY [facility] Last Admin: 07/29/21 11:01 Dose: 150 mg Documented by: Vitamin D (Cholecalciferol (Vitamin D3) 25 Mcg Tablet) 125 mcg PO DAILY [facility] Last Admin: 07/29/21 11:08 Dose: 125 mcg Documented by: Home Medications Medication Instructions Recorded Confirmed Last Taken Type acetaminophen 500 mg capsule 1,000 mg PO BID PRN 07/24/21 07/24/21 Unknown History atorvastatin 40 mg tablet 40 mg PO BEDTIME 07/24/21 07/24/21 Unknown History calcium carbonate 500 mg calcium 1,000 mg PO BEDTIME 07/24/21 07/24/21 Unknown History (1,250 mg) tablet carbamazepine 400 mg 400 mg PO BID 07/24/21 07/24/21 Unknown History tablet,extended release,12 hr (Tegretol XR) chlorhexidine gluconate 0.12 % 15 ml BUCCAL BID 07/24/21 07/24/21 Unknown History mouthwash (Peridex) cholecalciferol (vitamin D3) 125 125 mcg PO DAILY 07/24/21 07/24/21 Unknown History mcg (5,000 unit) tablet (Vitamin D3) denosumab 60 mg/mL subcutaneous 60 mg SUBCUT [id number] 07/24/21 07/24/21 Unknown History syringe (Prolia) divalproex 250 mg tablet,delayed 250 mg PO BEDTIME 07/24/21 07/24/21 Unknown History release (Depakote) divalproex 250 mg tablet,delayed 500 mg PO DAILY 07/24/21 07/24/21 Unknown History release (Depakote) gabapentin 300 mg capsule 300 mg PO DAILY 07/24/21 07/24/21 Unknown History gabapentin 400 mg capsule 400 mg PO BEDTIME 07/24/21 07/24/21 Unknown History hydrochlorothiazide 12.5 mg tablet 12.5 mg PO DAILY 07/24/21 07/24/21 Unknown History ibuprofen 600 mg tablet 600 mg PO DAILY PRN 07/24/21 07/24/21 Unknown History iron,carbonyl 65 mg-vitamin C 125 1 tab PO DAILY 07/24/21 07/24/21 Unknown History mg tablet,delayed release (Vitron-C) methylphenidate HCl 36 mg 36 mg PO DAILY 07/24/21 07/24/21 Unknown History tablet,extended release 24 hr (Concerta) mycophenolate sodium 360 mg 360 mg PO BEDTIME 07/24/21 07/24/21 Unknown History tablet,delayed release (Myfortic) mycophenolate sodium 360 mg 720 mg PO DAILY 07/24/21 07/24/21 Unknown History tablet,delayed release (Myfortic) venlafaxine 150 mg tablet,extended 150 mg PO DAILY 07/24/21 07/24/21 Unknown History release 24 hr Physical Exam Vital Signs: Vital Signs: Last Vital Signs Temp 100.8 F H 07/29/21 10:57 Pulse 103 H 07/29/21 10:57 Resp 20 07/29/21 10:57 BP 143/79 H 07/29/21 10:57 Pulse Ox 92 07/29/21 10:57 BMI result Body Mass Index 26.1 Const: General: cooperative Eyes: General: appearance normal, both eyes and all related structures Pupils: Equal, round and reactive pupils present Resp: Effort & Inspection: normal respiratory effort Cardio: Rate: regular rate Rhythm: regular rhythm Skin: General skin exam: no rashes or lesions noted Neuro: Cranial nerves: Yes Equal, round and reactive pupils present Results Labs CBC & Chem 7: 07/28/21 06:43 07/29/21 04:10 Labs: BMP 07/29/21 04:10 Sodium 135 Potassium 3.7 Chloride 93 L Carbon Dioxide 31 H BUN 36 H Creatinine 0.93 Calcium 8.8 D Assessment and Plan (1) COVID-19: Status: Acute She has been on oxygen nasal cannula She has some confusion but no signs of opportunistic infection evident at this time (2) Weakness: Status: Acute (3) Hypoxia: Status: Acute Would continue Dexamethasone Oxygen as needed No Remdesivir as over seven days No need for baricitinib at this time
--- NOTE | 2021-07-29 17:24 | MHC.SLORD ---
Speech Language Pathology Order Status: Attempted to see PT this AM. Pt having nursing procedure at the time, unable to return for daily TX.
[2021-07-29] MEDS: Divalproex Sodium 250 MG TABLET.DR PO (21:25)
[2021-07-29] MEDS: Gabapentin 400 MG CAPSULE PO (21:25)
[2021-07-29] MEDS: Atorvastatin Calcium 40 MG TABLET PO (21:25)
[2021-07-30] VITALS (9 sets, daily range): BP systolic 103–159; BP diastolic 55–84; PULSE 90–105; RESP 16–20; TEMP 36.6–37.8; O2SAT 92–100
[2021-07-30] MEDS: Piperacillin Sodium/Tazobactam 4.5 GM in 0.9 % Sodium Chloride 100 ML IV ×4 (05:34→23:36)
[2021-07-30 08:03] LABS: Anion Gap 20 (12-20); Blood Urea Nitrogen 40 mg/dL (9-16); Calcium 9.5 mg/dL (8.4-10.2); Carbon Dioxide 28 mmol/L (22-29); Chloride 96 mmol/L (96-108); Creatinine Clr Calc Pharmacy 58.3; Estimated Glomerular Filt Rate > 60; Glucose Random 65 mg/dL (60-115); Potassium 4.2 mmol/L (3.3-5.1); Sodium 140 mmol/L (135-145)
[2021-07-30] MEDS: 0.9 % Sodium Chloride Flush 3 ML SYRINGE IVFLUSH ×3 (08:54→20:46)
[2021-07-30] MEDS: dexAMETHasone sod phosphate 4 MG/ML VIAL 6 MG IVPUSH (08:54)
[2021-07-30] MEDS: Enoxaparin Sodium 40 MG/0.4 ML SYRINGE SUBCUT (08:55)
[2021-07-30] MEDS: carBAMazepine ER 200 MG TAB.ER.12H 400 MG PO ×2 (08:56→20:45)
[2021-07-30] MEDS: Gabapentin 300 MG CAPSULE PO (08:57)
[2021-07-30 08:58] LABS: C Reactive Protein 15.54 mg/dL (< or = 0.50); Lactate Dehydrogenase 592 U/L (122-220)
[2021-07-30] MEDS: Divalproex Sodium 500 MG TABLET.DR PO (08:59)
[2021-07-30] MEDS: Cholecalciferol (Vitamin D3) 25 MCG TABLET 125 MCG PO (08:59)
[2021-07-30] MEDS: Venlafaxine HCl ER 150 MG CAP.ER.24H PO (08:59)
[2021-07-30] MEDS: Chlorhexidine Gluc Oral Rinse 15 ML MOUTHWASH BUCCAL ×2 (09:01→20:45)
[2021-07-30 09:30] LABS: Procalcitonin 0.07 ng/mL
[2021-07-30 09:48] LABS: Ferritin 3139 ng/mL (10-250)
--- NOTE | 2021-07-30 10:46 | P.CDIC_ITS ---
CDI Concurrent Query Documentation Clarification: PHYSICIAN'S DOCUMENTATION REQUEST Date of Query: 07/30/21 1051 Patient Name: Keshia Murillo [facility] Admit Date: 07/27/21 Dear Doctor, A review of the medical record indicates additional documentation may be needed. Please review below and update the documentation accordingly. Clinical Indicators: Risk Factors/Clinical Indicators/Treatments CXR 07/26/21: IMPRESSION: New bilateral pulmonary infiltrates compatible with Covid pneumonia. Please clarify based on the above if: * COVID Pneumonia was present on admission * COVID Pneumonia was not present on admission * Unable to determine Use of terms such as suspected, likely, concern for, or probable (associated with a specific diagnosis that is being evaluated, monitored, or treated as if it exists) are acceptable and can be coded in the inpatient setting, when documented at the time of discharge. Thank you, Danii Stiles RN Extension: [phone] Please use your independent medical judgment in providing your response. THIS QUERY IS PART OF THE PERMANENT MEDICAL RECORD
--- NOTE | 2021-07-30 11:54 | MHC.SLORD ---
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 Patient is tolerating pills with pudding and displays no overt s/s of aspiration during meals. Patient is recommended to continue REGULAR solids and THIN liquids, with pills WHOLE in PUREE. Patient requires total 1:1 assistance feeding due to tremor of upper extremities and discoordination. Recommend aspiration precautions and following strategies: -small individual sips by cup or teaspoon -small bites of food -moisten food with sauce/gravy as needed -alternate bite of food with sip of liquid as needed -ensure oral cavity is clear before presenting more bites -upright 90 degree position during meals Further ST intervention is no longer warranted. Please re-refer if there are any changes or if MAIL HANDLER EQUIPMENT OPERATOR can be of further assistance.
[2021-07-30] MEDS: vancomycin HCL 1,250 MG in 0.9 % Sodium Chloride 250 ML 166.67 MG IV (12:49)
--- NOTE | 2021-07-30 13:39 | MHC.CM.PN ---
per rounds pt not ready for dc pt is on 12 liters of 02 no expected dc date at this time
--- NOTE | 2021-07-30 14:19 | HO.PM.IMPN ---
Subjective Subjective Date of Service: 07/30/21 Interval History: on 12L O2 via Green device T 100.8 yesterday morning no chest pain mild dyspnea + cough Review of Systems Review of Systems: Yes all other systems are reviewed and are negative Physical Exam Vital Signs: Vital Signs: Last Vital Signs Temp 99 F 07/30/21 11:21 Pulse 101 H 07/30/21 11:21 Resp 20 07/30/21 11:21 BP 137/73 07/30/21 11:21 Pulse Ox 95 07/30/21 11:21 BMI result Body Mass Index 26.1 Gen: in no acute distress HEENT: sclera anicteric, moist mucus membranes Neck: supple Lungs: clear to auscultation bilaterally Heart: regular rate and rhythm, no murmurs Abd: soft, non-tender, non-distended Ext: no edema Skin: warm/well-perfused Neuro: alert and oriented x3, no focal findings Psych: appropriate affect Objective Data Active Medications Acetaminophen (Acetaminophen 325 Mg Tablet) 650 mg PO Q4H PRN PRN Reason: Pain, Mild (Pain Scale 1-3) Last Admin: 07/29/21 11:03 Dose: 650 mg Documented by: BOYD Atorvastatin Calcium (Atorvastatin Calcium 40 Mg Tablet) 40 mg PO BEDTIME [facility] Last Admin: 07/29/21 21:25 Dose: 40 mg Documented by: KERA Calcium Carbonate (Calcium Carbonate 500 Mg Tablet) 1,000 mg PO BEDTIME [facility] Last Admin: 07/29/21 21:25 Dose: 1,000 mg Documented by: KERA Carbamazepine (Carbamazepine Er 200 Mg Tab.Er.12h) 400 mg PO BID [facility] Last Admin: 07/30/21 08:56 Dose: 400 mg Documented by: SERGIO Chlorhexidine Gluconate (Chlorhexidine Gluc Oral Rinse 15 Ml Mouthwash) 15 ml BUCCAL BID [facility] Last Admin: 07/30/21 09:01 Dose: 15 ml Documented by: SERGIO Dexamethasone Sodium Phosphate (Dexamethasone Sod Phosphate 4 Mg/Ml Vial) 6 mg IVPUSH DAILY [facility] Last Admin: 07/30/21 08:54 Dose: 6 mg Documented by: SERGIO Divalproex Sodium (Divalproex Sodium 250 Mg Tablet.Dr) 250 mg PO BEDTIME [facility] Last Admin: 07/29/21 21:25 Dose: 250 mg Documented by: KERA Divalproex Sodium (Divalproex Sodium 500 Mg Tablet.) 500 mg PO DAILY [facility] Last Admin: 07/30/21 08:59 Dose: 500 mg Documented by: SERGIO Enoxaparin Sodium (Enoxaparin Sodium 40 Mg/0.4 Ml Syringe) 40 mg SUBCUT Q24H [facility] Last Admin: 07/30/21 08:55 Dose: 40 mg Documented by: SERGIO Gabapentin (Gabapentin 300 Mg Capsule) 300 mg PO DAILY [facility] Last Admin: 07/30/21 08:57 Dose: 300 mg Documented by: SERGIO Gabapentin (Gabapentin 400 Mg Capsule) 400 mg PO BEDTIME [facility] Last Admin: 07/29/21 21:25 Dose: 400 mg Documented by: KERA Piperacillin Sod/Tazobactam (Sod 4.5 gm/ Sodium Chloride) 100 mls @ 200 mls/hr IV Q6H [facility] Last Infusion: 07/30/21 12:41 Dose: 0 mls/hr Documented by: JERONIMO Vancomycin HCl 1,250 mg/ (Sodium Chloride) 250 mls @ 166.667 mls/hr IV Q24H [facility] Last Admin: 07/30/21 12:49 Dose: 166.67 mls/hr Documented by: SERGIO Mycophenolate Sodium (Mycophenolate Sodium 180 Mg Tablet.) 360 mg PO BEDTIME [facility] Last Admin: 07/28/21 20:40 Dose: 360 mg Documented by: EDWARD Mycophenolate Sodium (Mycophenolate Sodium 180 Mg Tablet.) 720 mg PO DAILY [facility] Last Admin: 07/29/21 11:10 Dose: Not Given Documented by: BOYD Non-Admin Reason: on hold Non-Formulary Medication (Methylphenidate Hcl [Concerta]) 36 mg PO DAILY [facility] Ondansetron HCl (Ondansetron Hcl 4 Mg/2 Ml Vial) 4 mg IVPUSH Q8H PRN PRN Reason: Nausea and Vomiting Pharmacy Consult (Consult Rx Perform Med Rec) 1 each MISCELLANE ONCE PRN PRN Reason: Consult order Pharmacy Consult (Consult Rx Vancomycin Dosing) 1 each MISCELLANE DAILY PRN PRN Reason: Consult order Sodium Chloride (0.9 % Sodium Chloride Flush 3 Ml Syringe) 3 ml IVFLUSH QSHIFT [facility] Last Admin: 07/30/21 08:54 Dose: 3 ml Documented by: SERGIO Venlafaxine HCl (Venlafaxine Hcl Er 150 Mg Cap.Er.24h) 150 mg PO DAILY [facility] Last Admin: 07/30/21 08:59 Dose: 150 mg Documented by: SERGIO Vitamin D (Cholecalciferol (Vitamin D3) 25 Mcg Tablet) 125 mcg PO DAILY [facility] Last Admin: 07/30/21 08:59 Dose: 125 mcg Documented by: SERGIO Labs CBC & Chem 7: 07/28/21 06:43 07/30/21 07:08 Labs: Laboratory Results - last 24 hr 07/30/21 07/30/21 07:08 07:08 Anion Gap 20 Estim Creat Clear Calc 58.3 Estimated GFR > 60 Random Glucose 65 Calcium 9.5 D Ferritin 3139 H Lactate Dehydrogenase 592 H C-Reactive Protein 15.54 H Procalcitonin 0.07 Microbiology Microbiology Results: Microbiology 07/29/21 04:10 Blood Culture - Preliminary Blood - Venous No growth after 24 hours. 07/29/21 04:05 Blood Culture - Preliminary Blood - Venous No growth after 24 hours. Assessment and Plan (1) BEAN (acute kidney injury): Status: Acute (2) COVID-19: Status: Acute (3) BEAN (acute kidney injury): Status: Acute Assessment and Plan: hospital d#4 71yo F with MS admitted for hypoxia due to COVID-19 pneumonia # sepsis # COVID-19 pneumonia - vanco + pip/aman added 07/29/21 for concern of worsening pneumonia - trend inflammatory markers - ID consulted - dexamethasone d#11/23 # acute hypoxic respiratory failure - wean O2 as tolerated, awake proning # BEAN - resolved, HCTZ d/c'ed # HTN - monitor- HCTZ d/c'ed for BEAN # HLD - continue statin # MS - MMF held # sz disorder - continue carbamazepine, valproate, gabapentin # mood disorder - continue gabapentin, methylphenidate, venlafaxine # VTE ppx - LMWH Quality Stroke Does the patient have a stroke diagnosis?: No VTE Prior VTE?: No VTE Risk Level:: Medical - moderate - high VTE Device Contraindication: Treatment Not Indicated VTE Drug Contraindication: N/A - Med Ordered
[2021-07-30] MEDS: Divalproex Sodium 250 MG TABLET.DR PO (20:46)
[2021-07-30] MEDS: Atorvastatin Calcium 40 MG TABLET PO (20:46)
[2021-07-30] MEDS: Gabapentin 400 MG CAPSULE PO (20:46)
[2021-07-31] VITALS (7 sets, daily range): BP systolic 102–138; BP diastolic 58–82; PULSE 70–102; RESP 17–19; TEMP 36.3–37.1; O2SAT 91–99
[2021-07-31] MEDS: Piperacillin Sodium/Tazobactam 4.5 GM in 0.9 % Sodium Chloride 100 ML IV ×4 (05:11→23:04)
[2021-07-31 07:57] LABS: Hematocrit 31.9 % (37.0-47.0); Mean Corpuscular HGB Conc 31.3 g/dl (31.0-35.0); Mean Corpuscular Hemoglobin 31.3 pg (27.0-33.0); Mean Corpuscular Volume 99.7 fL (80.0-98.0); Platelet Count 226 X10*3/uL (160-400); Red Cell Distribution Width 12.4 % (11.0-16.0); White Blood Count 5.5 X10*3/uL (4.8-10.8)
[2021-07-31 08:19] LABS: Alanine Aminotransferase 52 U/L (0-31); Albumin Level 2.9 g/dL (3.5-5.0); Alkaline Phosphatase 39 U/L (39-117); Anion Gap 16 (12-20); Aspartate Amino Transferase 65 U/L (5-31); Bilirubin Total 0.4 mg/dL (0.0-1.0); Blood Urea Nitrogen 24 mg/dL (9-16); Calcium 9.3 mg/dL (8.4-10.2); Carbon Dioxide 31 mmol/L (22-29); Chloride 98 mmol/L (96-108); Creatinine Clr Calc Pharmacy 71.9; Estimated Glomerular Filt Rate > 60; Glucose Random 82 mg/dL (60-115); Potassium 3.9 mmol/L (3.3-5.1); Sodium 141 mmol/L (135-145); Total Protein 4.8 g/dL (6.5-8.0)
[2021-07-31] MEDS: Cholecalciferol (Vitamin D3) 25 MCG TABLET 125 MCG PO (10:42)
[2021-07-31] MEDS: carBAMazepine ER 200 MG TAB.ER.12H 400 MG PO ×2 (10:42→20:57)
[2021-07-31] MEDS: Chlorhexidine Gluc Oral Rinse 15 ML MOUTHWASH BUCCAL ×2 (10:42→20:57)
[2021-07-31] MEDS: Divalproex Sodium 500 MG TABLET.DR PO (10:43)
[2021-07-31] MEDS: Enoxaparin Sodium 40 MG/0.4 ML SYRINGE SUBCUT (10:43)
[2021-07-31] MEDS: Gabapentin 300 MG CAPSULE PO (10:44)
[2021-07-31] MEDS: Venlafaxine HCl ER 150 MG CAP.ER.24H PO (10:44)
[2021-07-31] MEDS: 0.9 % Sodium Chloride Flush 3 ML SYRINGE IVFLUSH ×2 (11:08→20:57)
[2021-07-31] MEDS: dexAMETHasone sod phosphate 4 MG/ML VIAL 6 MG IVPUSH (11:08)
--- NOTE | 2021-07-31 11:13 | P.PNIM_ITS ---
Subjective Subjective Date of Service: 07/31/21 Interval History: Comfortable but on 15L O2 via NC No fever No chest pain Review of Systems Review of Systems: Yes all other systems are reviewed and are negative Physical Exam Vital Signs: Vital Signs: Last Vital Signs Temp 97.6 F 07/31/21 08:00 Pulse 97 07/31/21 08:00 Resp 18 07/31/21 08:00 BP 136/82 07/31/21 08:00 Pulse Ox 95 07/31/21 08:00 BMI result Body Mass Index 26.1 Gen: in no acute distress HEENT: sclera anicteric, moist mucus membranes Neck: supple Lungs: clear to auscultation bilaterally Heart: regular rate and rhythm, no murmurs Abd: soft, non-tender, non-distended Ext: no edema Skin: warm/well-perfused Neuro: alert and oriented x3, no focal findings Psych: appropriate affect Objective Data Active Medications Acetaminophen (Acetaminophen 325 Mg Tablet) 650 mg PO Q4H PRN PRN Reason: Pain, Mild (Pain Scale 1-3) Last Admin: 07/29/21 11:03 Dose: 650 mg Documented by: BOYD Atorvastatin Calcium (Atorvastatin Calcium 40 Mg Tablet) 40 mg PO BEDTIME [facility] Last Admin: 07/30/21 20:46 Dose: 40 mg Documented by: MAUREEN Calcium Carbonate (Calcium Carbonate 500 Mg Tablet) 1,000 mg PO BEDTIME [facility] Last Admin: 07/30/21 20:46 Dose: 1,000 mg Documented by: MAUREEN Carbamazepine (Carbamazepine Er 200 Mg Tab.Er.12h) 400 mg PO BID [facility] Last Admin: 07/31/21 10:42 Dose: 400 mg Documented by: DELONTE Chlorhexidine Gluconate (Chlorhexidine Gluc Oral Rinse 15 Ml Mouthwash) 15 ml BUCCAL BID [facility] Last Admin: 07/31/21 10:42 Dose: 15 ml Documented by: DELONTE Dexamethasone Sodium Phosphate (Dexamethasone Sod Phosphate 4 Mg/Ml Vial) 6 mg IVPUSH DAILY [facility] Last Admin: 07/31/21 11:08 Dose: 6 mg Documented by: DELONTE Divalproex Sodium (Divalproex Sodium 250 Mg Tablet.Dr) 250 mg PO BEDTIME [facility] Last Admin: 07/30/21 20:46 Dose: 250 mg Documented by: MAUREEN Divalproex Sodium (Divalproex Sodium 500 Mg Tablet.) 500 mg PO DAILY [facility] Last Admin: 07/31/21 10:43 Dose: 500 mg Documented by: DELONTE Enoxaparin Sodium (Enoxaparin Sodium 40 Mg/0.4 Ml Syringe) 40 mg SUBCUT Q24H [facility] Last Admin: 07/31/21 10:43 Dose: 40 mg Documented by: DELONTE Gabapentin (Gabapentin 300 Mg Capsule) 300 mg PO DAILY [facility] Last Admin: 07/31/21 10:44 Dose: 300 mg Documented by: DELONTE Gabapentin (Gabapentin 400 Mg Capsule) 400 mg PO BEDTIME [facility] Last Admin: 07/30/21 20:46 Dose: 400 mg Documented by: MAUREEN Piperacillin Sod/Tazobactam (Sod 4.5 gm/ Sodium Chloride) 100 mls @ 200 mls/hr IV Q6H [facility] Last Admin: 07/31/21 11:08 Dose: 200 mls/hr Documented by: DELONTE Vancomycin HCl 1,250 mg/ (Sodium Chloride) 250 mls @ 166.667 mls/hr IV Q24H [facility] Last Infusion: 07/30/21 15:43 Dose: 0 mls/hr Documented by: SERGIO Mycophenolate Sodium (Mycophenolate Sodium 180 Mg Tablet.) 360 mg PO BEDTIME [facility] Last Admin: 07/28/21 20:40 Dose: 360 mg Documented by: EDWARD Mycophenolate Sodium (Mycophenolate Sodium 180 Mg Tablet.) 720 mg PO DAILY [facility] Last Admin: 07/29/21 11:10 Dose: Not Given Documented by: BOYD Non-Admin Reason: on hold Non-Formulary Medication (Methylphenidate Hcl [Concerta]) 36 mg PO DAILY [facility] Ondansetron HCl (Ondansetron Hcl 4 Mg/2 Ml Vial) 4 mg IVPUSH Q8H PRN PRN Reason: Nausea and Vomiting Pharmacy Consult (Consult Rx Perform Med Rec) 1 each MISCELLANE ONCE PRN PRN Reason: Consult order Pharmacy Consult (Consult Rx Vancomycin Dosing) 1 each MISCELLANE DAILY PRN PRN Reason: Consult order Sodium Chloride (0.9 % Sodium Chloride Flush 3 Ml Syringe) 3 ml IVFLUSH QSHIFT [facility] Last Admin: 07/31/21 11:08 Dose: 3 ml Documented by: DELONTE Venlafaxine HCl (Venlafaxine Hcl Er 150 Mg Cap.Er.24h) 150 mg PO DAILY [facility] Last Admin: 07/31/21 10:44 Dose: 150 mg Documented by: DELONTE Vitamin D (Cholecalciferol (Vitamin D3) 25 Mcg Tablet) 125 mcg PO DAILY [facility] Last Admin: 07/31/21 10:42 Dose: 125 mcg Documented by: DELONTE Labs CBC & Chem 7: 07/31/21 07:35 07/31/21 07:35 Labs: Laboratory Results - last 24 hr 07/31/21 07/31/21 07:35 07:35 MCV 99.7 H MCH 31.3 MCHC 31.3 RDW 12.4 Plt Count 226 MPV 10.0 Absolute Nucleated RBC 0.000 Nucleated RBC % (auto) 0.0 Anion Gap 16 Estim Creat Clear Calc 71.9 Estimated GFR > 60 Random Glucose 82 Calcium 9.3 Total Bilirubin 0.4 AST 65 H ALT 52 H Alkaline Phosphatase 39 Total Protein 4.8 L Albumin 2.9 L Microbiology Microbiology Results: Microbiology 07/29/21 04:10 Blood Culture - Preliminary Blood - Venous No growth after 48 hours. 07/29/21 04:05 Blood Culture - Preliminary Blood - Venous No growth after 48 hours. Assessment and Plan (1) BEAN (acute kidney injury): Status: Acute (2) COVID-19: Status: Acute (3) BEAN (acute kidney injury): Status: Acute Assessment and Plan: hospital d#5 71yo F with MS admitted for hypoxia due to COVID-19 pneumonia # sepsis # COVID-19 pneumonia - dexamethasone d#12/23; discuss baricitinib with ID - vanco + pip/aman added 07/29/21 for concern of worsening pneumonia - trend inflammatory markers # acute hypoxic respiratory failure - wean O2 as tolerated, awake proning - CTA to r/o PE # BEAN - resolved, HCTZ d/c'ed # HTN - monitor- HCTZ d/c'ed for BEAN # HLD - continue statin # MS - MMF held # sz disorder - continue carbamazepine, valproate, gabapentin # mood disorder - continue gabapentin, methylphenidate, venlafaxine # VTE ppx - LMWH Quality Stroke Does the patient have a stroke diagnosis?: No VTE Prior VTE?: No VTE Risk Level:: Medical - moderate - high VTE Device Contraindication: Treatment Not Indicated VTE Drug Contraindication: N/A - Med Ordered
[2021-07-31] MEDS: vancomycin HCL 1,250 MG in 0.9 % Sodium Chloride 250 ML 166.67 MG IV (11:20)
[2021-07-31] MEDS: iohexoL 350 MG/ML 100 ML INFUS..BTL 65 ML IV (18:30)
[2021-07-31] MEDS: Atorvastatin Calcium 40 MG TABLET PO (20:57)
[2021-07-31] MEDS: Divalproex Sodium 250 MG TABLET.DR PO (20:57)
[2021-07-31] MEDS: Gabapentin 400 MG CAPSULE PO (20:57)
--- NOTE | 2021-07-31 22:18 | P.EN_ITS ---
Event Note Date of Service: 07/31/21 Event Note: Received a call from [facility] regarding the CT angiogram for PE study, according to the radiologist the study is limited by motion as well as timing of the dye but it is equivocal for a thrombus in the right superior lobar artery. They recommend repeat imaging. At this time will start patient with therapeutic Lovenox and will order V/Q scan for morning, to protect kidneys
[2021-07-31 22:52] LABS: Hematocrit 28.6 % (37.0-47.0); Mean Corpuscular HGB Conc 31.5 g/dl (31.0-35.0); Mean Corpuscular Hemoglobin 31.4 pg (27.0-33.0); Mean Corpuscular Volume 99.7 fL (80.0-98.0); Mean Platelet Volume 10.2 fL (9.4-12.3); Platelet Count 221 X10*3/uL (160-400); Red Blood Count 2.87 X10*6/uL (4.20-5.50); Red Cell Distribution Width 12.4 % (11.0-16.0); White Blood Count 3.1 X10*3/uL (4.8-10.8)
[2021-07-31 22:58] LABS: INTERNATIONAL NORM RATIO 1.1 (0.9-1.1)
[2021-07-31 23:01] LABS: Partial Thromboplastin Time 32.9 SEC (24.1-38.0)
[2021-07-31] MEDS: Enoxaparin Sodium 80 MG/0.8 ML SYRINGE 70 MG SUBCUT (23:04)
[2021-08-01 03:23] VITALS: BP 126/72; PULSE 83; RESP 18; TEMP 36.2; O2SAT 95
[2021-08-01] MEDS: Piperacillin Sodium/Tazobactam 4.5 GM in 0.9 % Sodium Chloride 100 ML IV ×2 (05:11→13:07)
[2021-08-01 07:09] LABS: Hematocrit 31.9 % (37.0-47.0); Mean Corpuscular HGB Conc 31.3 g/dl (31.0-35.0); Mean Corpuscular Hemoglobin 31.7 pg (27.0-33.0); Mean Corpuscular Volume 101.3 fL (80.0-98.0); Mean Platelet Volume 10.3 fL (9.4-12.3); Platelet Count 214 X10*3/uL (160-400); Red Blood Count 3.15 X10*6/uL (4.20-5.50); Red Cell Distribution Width 12.5 % (11.0-16.0); White Blood Count 4.8 X10*3/uL (4.8-10.8)
[2021-08-01 07:10] LABS: D Dimer High Sensitivity 417 NG/ML
[2021-08-01 07:19] VITALS: BP 142/80; PULSE 81; RESP 20; TEMP 36.6; O2SAT 97
[2021-08-01 07:27] LABS: Alanine Aminotransferase 48 U/L (0-31); Albumin Level 2.7 g/dL (3.5-5.0); Alkaline Phosphatase 38 U/L (39-117); Anion Gap 15 (12-20); Aspartate Amino Transferase 60 U/L (5-31); Bilirubin Direct 0.2 mg/dL (0.0-0.5); Bilirubin Total 0.4 mg/dL (0.0-1.0); Blood Urea Nitrogen 26 mg/dL (9-16); C Reactive Protein 16.26 mg/dL (< or = 0.50); Calcium 9.1 mg/dL (8.4-10.2); Carbon Dioxide 31 mmol/L (22-29); Chloride 99 mmol/L (96-108); Creatinine Clr Calc Pharmacy 71.9; Estimated Glomerular Filt Rate > 60; Glucose Random 75 mg/dL (60-115); Potassium 4.3 mmol/L (3.3-5.1); Sodium 141 mmol/L (135-145); Total Protein 4.9 g/dL (6.5-8.0)
[2021-08-01] MEDS: dexAMETHasone sod phosphate 4 MG/ML VIAL 6 MG IVPUSH (07:58)
[2021-08-01] MEDS: Cholecalciferol (Vitamin D3) 25 MCG TABLET 125 MCG PO (08:00)
[2021-08-01] MEDS: Venlafaxine HCl ER 150 MG CAP.ER.24H PO (08:01)
[2021-08-01] MEDS: Divalproex Sodium 500 MG TABLET.DR PO (08:02)
[2021-08-01] MEDS: Gabapentin 300 MG CAPSULE PO (08:02)
[2021-08-01] MEDS: Chlorhexidine Gluc Oral Rinse 15 ML MOUTHWASH BUCCAL ×2 (08:02→20:59)
[2021-08-01] MEDS: carBAMazepine ER 200 MG TAB.ER.12H 400 MG PO ×2 (08:02→20:56)
[2021-08-01] MEDS: 0.9 % Sodium Chloride Flush 3 ML SYRINGE IVFLUSH ×3 (08:03→20:57)
[2021-08-01 10:29] LABS: Vancomycin Trough 11.1 mcg/mL (10.0-20.0)
--- NOTE | 2021-08-01 10:51 | HO.PM.IMPN ---
Subjective Subjective Date of Service: 08/01/21 Interval History: CTA showed R superior lobar artery with question of filling deficit. Placed on therapeutic LMWH. V/Q very low-probability. Pt feels better, less dyspneic, satting 97%+ on 15L via Green device No chest pain Review of Systems Review of Systems: Yes all other systems are reviewed and are negative Physical Exam Vital Signs: Vital Signs: Last Vital Signs Temp 97.9 F 08/01/21 07:19 Pulse 81 08/01/21 07:19 Resp 20 08/01/21 07:19 BP 142/80 H 08/01/21 07:19 Pulse Ox 97 08/01/21 07:19 BMI result Body Mass Index 26.1 Gen: in no acute distress HEENT: sclera anicteric, moist mucus membranes Neck: supple Lungs: clear to auscultation bilaterally Heart: regular rate and rhythm, no murmurs Abd: soft, non-tender, non-distended Ext: LUE swollen at site of infiltrated IV site, BLE without edema/cords Skin: warm/well-perfused Neuro: alert and oriented x3, no focal findings Psych: appropriate affect Objective Data Active Medications Acetaminophen (Acetaminophen 325 Mg Tablet) 650 mg PO Q4H PRN PRN Reason: Pain, Mild (Pain Scale 1-3) Last Admin: 07/29/21 11:03 Dose: 650 mg Documented by: BOYD Atorvastatin Calcium (Atorvastatin Calcium 40 Mg Tablet) 40 mg PO BEDTIME [facility] Last Admin: 07/31/21 20:57 Dose: 40 mg Documented by: MAUREEN Baricitinib (Baricitinib 2 Mg Tablet) 4 mg PO DAILY [facility] Stop: 08/13/21 09:01 Last Admin: 08/01/21 08:01 Dose: 4 mg Documented by: BOYD Calcium Carbonate (Calcium Carbonate 500 Mg Tablet) 1,000 mg PO BEDTIME [facility] Last Admin: 07/31/21 20:57 Dose: 1,000 mg Documented by: MAUREEN Carbamazepine (Carbamazepine Er 200 Mg Tab.Er.12h) 400 mg PO BID [facility] Last Admin: 08/01/21 08:02 Dose: 400 mg Documented by: BOYD Chlorhexidine Gluconate (Chlorhexidine Gluc Oral Rinse 15 Ml Mouthwash) 15 ml BUCCAL BID [facility] Last Admin: 08/01/21 08:02 Dose: 15 ml Documented by: BOYD Dexamethasone Sodium Phosphate (Dexamethasone Sod Phosphate 4 Mg/Ml Vial) 6 mg IVPUSH DAILY [facility] Last Admin: 08/01/21 07:58 Dose: 6 mg Documented by: BOYD Divalproex Sodium (Divalproex Sodium 250 Mg Tablet.) 250 mg PO BEDTIME [facility] Last Admin: 07/31/21 20:57 Dose: 250 mg Documented by: MAUREEN Divalproex Sodium (Divalproex Sodium 500 Mg Tablet.) 500 mg PO DAILY [facility] Last Admin: 08/01/21 08:02 Dose: 500 mg Documented by: BOYD Enoxaparin Sodium (Enoxaparin Sodium 80 Mg/0.8 Ml Syringe) 70 mg 1 mg/kg (70 mg) SUBCUT Q12H [facility] Last Admin: 07/31/21 23:04 Dose: 70 mg Documented by: MAUREEN Gabapentin (Gabapentin 300 Mg Capsule) 300 mg PO DAILY [facility] Last Admin: 08/01/21 08:02 Dose: 300 mg Documented by: BOYD Gabapentin (Gabapentin 400 Mg Capsule) 400 mg PO BEDTIME [facility] Last Admin: 07/31/21 20:57 Dose: 400 mg Documented by: MAUREEN Piperacillin Sod/Tazobactam (Sod 4.5 gm/ Sodium Chloride) 100 mls @ 200 mls/hr IV Q6H [facility] Last Infusion: 08/01/21 06:24 Dose: 0 mls/hr Documented by: MAUREEN Vancomycin HCl 1,250 mg/ (Sodium Chloride) 250 mls @ 166.667 mls/hr IV Q24H [facility] Last Infusion: 07/31/21 13:20 Dose: 0 mls/hr Documented by: DELONTE Mycophenolate Sodium (Mycophenolate Sodium 180 Mg Tablet.) 360 mg PO BEDTIME [facility] Last Admin: 07/28/21 20:40 Dose: 360 mg Documented by: EDWARD Mycophenolate Sodium (Mycophenolate Sodium 180 Mg Tablet.) 720 mg PO DAILY [facility] Last Admin: 07/29/21 11:10 Dose: Not Given Documented by: BOYD Non-Admin Reason: on hold Non-Formulary Medication (Methylphenidate Hcl [Concerta]) 36 mg PO DAILY [facility] Ondansetron HCl (Ondansetron Hcl 4 Mg/2 Ml Vial) 4 mg IVPUSH Q8H PRN PRN Reason: Nausea and Vomiting Pharmacy Consult (Consult Rx Perform Med Rec) 1 each MISCELLANE ONCE PRN PRN Reason: Consult order Pharmacy Consult (Consult Rx Vancomycin Dosing) 1 each MISCELLANE DAILY PRN PRN Reason: Consult order Sodium Chloride (0.9 % Sodium Chloride Flush 3 Ml Syringe) 3 ml IVFLUSH QSHIFT [facility] Last Admin: 08/01/21 08:03 Dose: 3 ml Documented by: BOYD Venlafaxine HCl (Venlafaxine Hcl Er 150 Mg Cap.Er.24h) 150 mg PO DAILY [facility] Last Admin: 08/01/21 08:01 Dose: 150 mg Documented by: BOYD Vitamin D (Cholecalciferol (Vitamin D3) 25 Mcg Tablet) 125 mcg PO DAILY [facility] Last Admin: 08/01/21 08:00 Dose: 125 mcg Documented by: BOYD Labs CBC & Chem 7: 08/01/21 06:39 08/01/21 06:40 Labs: Laboratory Results - last 24 hr 07/31/21 07/31/21 08/01/21 22:37 22:37 06:39 MCV 99.7 H 101.3 H MCH 31.4 31.7 MCHC 31.5 31.3 RDW 12.4 12.5 Plt Count 221 214 MPV 10.2 10.3 Absolute Nucleated RBC 0.000 0.000 Nucleated RBC % (auto) 0.0 0.0 PT 12.0 INR 1.1 APTT 32.9 D-Dimer High Sensitivty Anion Gap Estim Creat Clear Calc Estimated GFR Random Glucose Calcium Total Bilirubin Direct Bilirubin AST ALT Alkaline Phosphatase C-Reactive Protein Total Protein Albumin Vancomycin Trough 08/01/21 08/01/21 08/01/21 06:39 06:40 09:58 MCV MCH MCHC RDW Plt Count MPV Absolute Nucleated RBC Nucleated RBC % (auto) PT INR APTT D-Dimer High Sensitivty 417 Anion Gap 15 Estim Creat Clear Calc 71.9 Estimated GFR > 60 Random Glucose 75 Calcium 9.1 Total Bilirubin 0.4 Direct Bilirubin 0.2 AST 60 H ALT 48 H Alkaline Phosphatase 38 L C-Reactive Protein 16.26 H Total Protein 4.9 L Albumin 2.7 L Vancomycin Trough 11.1 Impressions Chest CTA 07/31/21 18:31 IMPRESSION: Limited examination as above. There is an equivocal thrombus within the right superior lobar artery. Recommend repeat imaging to ensure accuracy of these findings. Multifocal airspace opacities and bilateral pleural effusions. Cholelithiasis. VTE: indeterminate This critical result was discussed with Dr Boss at 07/31/2021 9:09 PM and it was ascertained that the content and urgency of the report was understood at the time of direct communication. Pulmonary Perfusion Imaging 08/01/21 09:10 IMPRESSION: Very low probability of pulmonary embolism. Microbiology Microbiology Results: Microbiology 07/29/21 04:10 Blood Culture - Preliminary Blood - Venous No growth after 48 hours. 07/29/21 04:05 Blood Culture - Preliminary Blood - Venous No growth after 48 hours. Assessment and Plan (1) COVID-19: Status: Acute Assessment and Plan: hospital d#6 71yo F with MS on MMF admitted for hypoxia due to COVID-19 pneumonia # viral sepsis # COVID-19 pneumonia - dexamethasone d#01/23; baricitinib d#09/29 - vanco + pip/aman added 07/29/21 for concern of worsening pneumonia but if PCT is low will d/c ABX - trend inflammatory markers # acute hypoxic respiratory failure - wean O2 as tolerated, awake proning # question of PE - see above for CTA + V/Q results. keep on therapeutic LMWH for now pending bilateral upper and lower extremity venous Dopplers # BEAN - resolved, HCTZ d/c'ed # HTN - monitor- HCTZ d/c'ed for BEAN # HLD - continue statin # MS - MMF held # sz disorder - continue carbamazepine, valproate, gabapentin # mood disorder - continue gabapentin, methylphenidate, venlafaxine # VTE ppx - LMWH Quality Stroke Does the patient have a stroke diagnosis?: No VTE Prior VTE?: No VTE Risk Level:: Medical - moderate - high VTE Device Contraindication: Treatment Not Indicated VTE Drug Contraindication: N/A - Med Ordered
[2021-08-01 11:15] VITALS: BP 129/73; PULSE 79; RESP 20; TEMP 36.4; O2SAT 95
--- NOTE | 2021-08-01 11:15 | PC.NURSE ---
left arm swollen. Dr. Velazquez made aware. Duplex scan ordered for BUE/BLE
--- NOTE | 2021-08-01 11:28 | MHC.CM.PN ---
Per ROUNDS discussion, Patient is not yet medically cleared for dc (IV Decadron, IV Zosyn, IV Vanco, 15 L O2). LTC VS 24/ care @ home is the goal for dc and CM will follow.
[2021-08-01 11:50] LABS: Procalcitonin 0.06 ng/mL
[2021-08-01] MEDS: Enoxaparin Sodium 80 MG/0.8 ML SYRINGE 70 MG SUBCUT ×2 (13:07→23:18)
[2021-08-01] MEDS: vancomycin HCL 1,250 MG in 0.9 % Sodium Chloride 250 ML 166.67 MG IV (13:50)
[2021-08-01 15:55] VITALS: BP 137/85; PULSE 81; RESP 20; TEMP 36.6; O2SAT 96
--- NOTE | 2021-08-01 16:33 | PC.NURSE ---
Report given to Sarah, S3 RN
[2021-08-01 20:00] VITALS: BP 118/58; PULSE 75; RESP 20; TEMP 36.1; O2SAT 88
[2021-08-01] MEDS: Divalproex Sodium 250 MG TABLET.DR PO (20:55)
[2021-08-01] MEDS: Atorvastatin Calcium 40 MG TABLET PO (20:56)
[2021-08-01] MEDS: Gabapentin 400 MG CAPSULE PO (20:56)
[2021-08-01 23:30] VITALS: BP 161/82; PULSE 84; RESP 20; TEMP 36.4; O2SAT 95
[2021-08-02] VITALS (10 sets, daily range): BP systolic 90–145; BP diastolic 56–75; PULSE 66–105; RESP 18–24; TEMP 36.6–37.5; O2SAT 76–97
[2021-08-02 07:25] LABS: Hematocrit 31.8 % (37.0-47.0); Mean Corpuscular HGB Conc 31.4 g/dl (31.0-35.0); Mean Corpuscular Hemoglobin 31.3 pg (27.0-33.0); Mean Corpuscular Volume 99.4 fL (80.0-98.0); Mean Platelet Volume 10.3 fL (9.4-12.3); Platelet Count 267 X10*3/uL (160-400); Red Cell Distribution Width 12.1 % (11.0-16.0); White Blood Count 6.4 X10*3/uL (4.8-10.8)
[2021-08-02 07:43] LABS: Alanine Aminotransferase 50 U/L (0-31); Albumin Level 2.8 g/dL (3.5-5.0); Alkaline Phosphatase 46 U/L (39-117); Anion Gap 15 (12-20); Aspartate Amino Transferase 58 U/L (5-31); Bilirubin Total 0.3 mg/dL (0.0-1.0); Blood Urea Nitrogen 20 mg/dL (9-16); Calcium 8.8 mg/dL (8.4-10.2); Carbon Dioxide 30 mmol/L (22-29); Chloride 98 mmol/L (96-108); Estimated Glomerular Filt Rate > 60; Glucose Random 91 mg/dL (60-115); Potassium 4.1 mmol/L (3.3-5.1); Sodium 139 mmol/L (135-145); Total Protein 4.8 g/dL (6.5-8.0)
[2021-08-02] MEDS: Cholecalciferol (Vitamin D3) 25 MCG TABLET 125 MCG PO (07:55)
[2021-08-02] MEDS: Divalproex Sodium 500 MG TABLET.DR PO (07:55)
[2021-08-02] MEDS: Gabapentin 300 MG CAPSULE PO (07:55)
[2021-08-02] MEDS: carBAMazepine ER 200 MG TAB.ER.12H 400 MG PO ×2 (07:55→21:21)
[2021-08-02] MEDS: Venlafaxine HCl ER 150 MG CAP.ER.24H PO (07:55)
[2021-08-02] MEDS: Chlorhexidine Gluc Oral Rinse 15 ML MOUTHWASH BUCCAL ×2 (07:56→21:22)
[2021-08-02] MEDS: dexAMETHasone sod phosphate 4 MG/ML VIAL 6 MG IVPUSH (07:56)
[2021-08-02] MEDS: 0.9 % Sodium Chloride Flush 3 ML SYRINGE IVFLUSH ×2 (07:56→16:45)
--- NOTE | 2021-08-02 11:27 | HO.PM.IMPN ---
Subjective Subjective Date of Service: 08/02/21 Interval History: SaO2 down to 88% then 76% overnight I ordered HFNC this morning No fever Review of Systems Review of Systems: Yes all other systems are reviewed and are negative Physical Exam Vital Signs: Vital Signs: Last Vital Signs Temp 97.9 F 08/02/21 10:54 Pulse 103 H 08/02/21 10:54 Resp 24 H 08/02/21 10:54 BP 90/56 L 08/02/21 10:54 Pulse Ox 92 08/02/21 10:54 BMI result Body Mass Index 26.1 Gen: in moderate respiratory distress HEENT: sclera anicteric, moist mucus membranes Neck: supple Lungs: clear to auscultation bilaterally Heart: tachycardic, no murmurs Abd: soft, non-tender, non-distended Ext: no edema Skin: warm/well-perfused Neuro: alert and oriented x3, no focal findings Psych: appropriate affect Objective Data Active Medications Acetaminophen (Acetaminophen 325 Mg Tablet) 650 mg PO Q4H PRN PRN Reason: Pain, Mild (Pain Scale 1-3) Last Admin: 07/29/21 11:03 Dose: 650 mg Documented by: BOYD Atorvastatin Calcium (Atorvastatin Calcium 40 Mg Tablet) 40 mg PO BEDTIME [facility] Last Admin: 08/01/21 20:56 Dose: 40 mg Documented by: JM Baricitinib (Baricitinib 2 Mg Tablet) 4 mg PO DAILY [facility] Stop: 08/13/21 09:01 Last Admin: 08/02/21 07:55 Dose: 4 mg Documented by: JULIANN Calcium Carbonate (Calcium Carbonate 500 Mg Tablet) 1,000 mg PO BEDTIME [facility] Last Admin: 08/01/21 20:55 Dose: 1,000 mg Documented by: JM Carbamazepine (Carbamazepine Er 200 Mg Tab.Er.12h) 400 mg PO BID [facility] Last Admin: 08/02/21 07:55 Dose: 400 mg Documented by: JULIANN Chlorhexidine Gluconate (Chlorhexidine Gluc Oral Rinse 15 Ml Mouthwash) 15 ml BUCCAL BID [facility] Last Admin: 08/02/21 07:56 Dose: 15 ml Documented by: JULIANN Dexamethasone Sodium Phosphate (Dexamethasone Sod Phosphate 4 Mg/Ml Vial) 6 mg IVPUSH DAILY [facility] Last Admin: 08/02/21 07:56 Dose: 6 mg Documented by: JULIANN Divalproex Sodium (Divalproex Sodium 250 Mg Tablet.) 250 mg PO BEDTIME [facility] Last Admin: 08/01/21 20:55 Dose: 250 mg Documented by: JM Divalproex Sodium (Divalproex Sodium 500 Mg Tablet.) 500 mg PO DAILY [facility] Last Admin: 08/02/21 07:55 Dose: 500 mg Documented by: JULIANN Enoxaparin Sodium (Enoxaparin Sodium 80 Mg/0.8 Ml Syringe) 70 mg 1 mg/kg (70 mg) SUBCUT Q12H [facility] Last Admin: 08/01/21 23:18 Dose: 70 mg Documented by: JM Gabapentin (Gabapentin 300 Mg Capsule) 300 mg PO DAILY [facility] Last Admin: 08/02/21 07:55 Dose: 300 mg Documented by: JULIANN Gabapentin (Gabapentin 400 Mg Capsule) 400 mg PO BEDTIME [facility] Last Admin: 08/01/21 20:56 Dose: 400 mg Documented by: JM Mycophenolate Sodium (Mycophenolate Sodium 180 Mg Tablet.) 360 mg PO BEDTIME [facility] Last Admin: 07/28/21 20:40 Dose: 360 mg Documented by: EDWARD Mycophenolate Sodium (Mycophenolate Sodium 180 Mg Tablet.) 720 mg PO DAILY [facility] Last Admin: 07/29/21 11:10 Dose: Not Given Documented by: BOYD Non-Admin Reason: on hold Ondansetron HCl (Ondansetron Hcl 4 Mg/2 Ml Vial) 4 mg IVPUSH Q8H PRN PRN Reason: Nausea and Vomiting Pharmacy Consult (Consult Rx Perform Med Rec) 1 each MISCELLANE ONCE PRN PRN Reason: Consult order Pharmacy Consult (Consult Rx Vancomycin Dosing) 1 each MISCELLANE DAILY PRN PRN Reason: Consult order Sodium Chloride (0.9 % Sodium Chloride Flush 3 Ml Syringe) 3 ml IVFLUSH QSHIFT [facility] Last Admin: 08/02/21 07:56 Dose: 3 ml Documented by: JULIANN Venlafaxine HCl (Venlafaxine Hcl Er 150 Mg Cap.Er.24h) 150 mg PO DAILY [facility] Last Admin: 08/02/21 07:55 Dose: 150 mg Documented by: JULIANN Vitamin D (Cholecalciferol (Vitamin D3) 25 Mcg Tablet) 125 mcg PO DAILY [facility] Last Admin: 08/02/21 07:55 Dose: 125 mcg Documented by: JULIANN Labs CBC & Chem 7: 08/02/21 06:36 08/02/21 06:36 Labs: Laboratory Results - last 24 hr 08/01/21 08/02/21 08/02/21 06:40 06:36 06:36 MCV 99.4 H MCH 31.3 MCHC 31.4 RDW 12.1 Plt Count 267 MPV 10.3 Absolute Nucleated RBC 0.000 Nucleated RBC % (auto) 0.0 Anion Gap 15 Estim Creat Clear Calc 86.0 Estimated GFR > 60 Random Glucose 91 Calcium 8.8 Total Bilirubin 0.3 AST 58 H ALT 50 H Alkaline Phosphatase 46 D Total Protein 4.8 L Albumin 2.8 L Procalcitonin 0.06 Impressions Venous Duplex 08/01/21 15:44 IMPRESSION: No DVT demonstrated in the bilateral upper extremities. Venous Duplex 08/01/21 15:44 IMPRESSION: No DVT demonstrated in the bilateral lower extremity. Assessment and Plan (1) COVID-19: Status: Acute Assessment and Plan: hospital d#7 71yo F with MS on MMF admitted for hypoxia due to COVID-19 pneumonia # viral sepsis # COVID-19 pneumonia - dexamethasone d#02/22; baricitinib d#10/27 - vanco + pip/aman added 07/29/21 for concern of worsening pneumonia but d/c'ed 08/01/21 with negative BCx and low PCT - trend inflammatory markers # acute hypoxic respiratory failure - on HFNC, wean O2 as tolerated, encourage awake proning # question of PE - CTA and V/Q discordant. consider repeat CTA but in the meanwhile, keep on therapeutic LMWH # BEAN - resolved, HCTZ d/c'ed # HTN - monitor- HCTZ d/c'ed for BEAN # HLD - continue statin # MS - MMF held # sz disorder - continue carbamazepine, valproate, gabapentin # mood disorder - continue gabapentin, methylphenidate, venlafaxine # VTE ppx - LMWH Quality Stroke Does the patient have a stroke diagnosis?: No VTE Prior VTE?: No VTE Risk Level:: Medical - moderate - high VTE Device Contraindication: Treatment Not Indicated VTE Drug Contraindication: N/A - Med Ordered
[2021-08-02] MEDS: Enoxaparin Sodium 80 MG/0.8 ML SYRINGE 70 MG SUBCUT ×2 (12:12→23:06)
--- NOTE | 2021-08-02 15:59 | PC.NURSE ---
Addendum entered by Selma Dinero RN 08/02/21 16:08: Correction- Patient now on high flow 100%/55L. Original Note: 0800- Patient O2 96% on 15L Green and NRB. This RN attempted to wean patient off of NRB. O2 86-89% on [address] Velazquez made aware. MD to order High flow. High flow applied by Respiratory therapy. O2 92% on high flow 55%. Patient has no complaints at this time.
[2021-08-02] MEDS: Gabapentin 400 MG CAPSULE PO (21:21)
[2021-08-02] MEDS: Divalproex Sodium 250 MG TABLET.DR PO (21:21)
[2021-08-02] MEDS: Atorvastatin Calcium 40 MG TABLET PO (21:21)
[2021-08-03] VITALS (13 sets, daily range): BP systolic 109–141; BP diastolic 65–78; PULSE 91–102; RESP 18–22; TEMP 36.6–37.2; O2SAT 90–97
[2021-08-03 07:05] LABS: Hematocrit 30.2 % (37.0-47.0); Hemoglobin 9.5 g/dl (12.0-16.0); Mean Corpuscular HGB Conc 31.5 g/dl (31.0-35.0); Mean Corpuscular Hemoglobin 31.5 pg (27.0-33.0); Platelet Count 283 X10*3/uL (160-400); Red Blood Count 3.02 X10*6/uL (4.20-5.50); Red Cell Distribution Width 12.2 % (11.0-16.0); White Blood Count 6.7 X10*3/uL (4.8-10.8)
[2021-08-03 07:07] LABS: VBG Base Excess 11.1 mmol/L; VBG HCO3 35 mmol/L (22-26); VBG pCO2 44 mmHg; VBG pH 7.51 (7.32-7.43); VBG pO2 48 mmHg
[2021-08-03 07:10] LABS: Venous Blood Gas Refer to POC result
[2021-08-03 07:14] LABS: D Dimer High Sensitivity 405 NG/ML
[2021-08-03 07:24] LABS: Anion Gap 14 (12-20); Blood Urea Nitrogen 21 mg/dL (9-16); C Reactive Protein 10.25 mg/dL (< or = 0.50); Calcium 9.3 mg/dL (8.4-10.2); Carbon Dioxide 30 mmol/L (22-29); Chloride 98 mmol/L (96-108); Estimated Glomerular Filt Rate > 60; Glucose Random 76 mg/dL (60-115); Potassium 4.3 mmol/L (3.3-5.1); Sodium 138 mmol/L (135-145)
[2021-08-03] MEDS: carBAMazepine ER 200 MG TAB.ER.12H 400 MG PO ×2 (08:25→21:03)
[2021-08-03] MEDS: dexAMETHasone sod phosphate 4 MG/ML VIAL 6 MG IVPUSH (08:25)
[2021-08-03] MEDS: Cholecalciferol (Vitamin D3) 25 MCG TABLET 125 MCG PO (08:25)
[2021-08-03] MEDS: Gabapentin 300 MG CAPSULE PO (08:25)
[2021-08-03] MEDS: Chlorhexidine Gluc Oral Rinse 15 ML MOUTHWASH BUCCAL ×2 (08:25→21:03)
[2021-08-03] MEDS: Divalproex Sodium 500 MG TABLET.DR PO (08:25)
[2021-08-03] MEDS: Venlafaxine HCl ER 150 MG CAP.ER.24H PO (08:25)
[2021-08-03] MEDS: 0.9 % Sodium Chloride Flush 3 ML SYRINGE IVFLUSH ×2 (08:26→16:44)
[2021-08-03] MEDS: Enoxaparin Sodium 80 MG/0.8 ML SYRINGE 70 MG SUBCUT ×2 (12:20→21:04)
--- NOTE | 2021-08-03 12:23 | P.PNIM_ITS ---
Subjective Subjective Date of Service: 08/03/21 Interval History: Tired. Maintaining SaO2 95% on maximum HFNC, 100% fiO2 @ 15 Lpm. Denies chest pain. Review of Systems Review of Systems: Yes all other systems are reviewed and are negative Physical Exam Vital Signs: Vital Signs: Last Vital Signs Temp 98.5 F 08/03/21 10:54 Pulse 102 H 08/03/21 10:54 Resp 20 08/03/21 11:12 BP 141/71 H 08/03/21 10:54 Pulse Ox 93 08/03/21 10:54 BMI result Body Mass Index 26.1 Gen: in mild espiratory distress HEENT: sclera anicteric, moist mucus membranes Neck: supple Lungs: clear to auscultation bilaterally, slightly tachypneic Heart: tachycardic, no murmurs Abd: soft, non-tender, non-distended Ext: no edema Skin: warm/well-perfused Neuro: alert and oriented x3, no focal findings Psych: appropriate affect Objective Data Active Medications Acetaminophen (Acetaminophen 325 Mg Tablet) 650 mg PO Q4H PRN PRN Reason: Pain, Mild (Pain Scale 1-3) Last Admin: 07/29/21 11:03 Dose: 650 mg Documented by: BOYD Atorvastatin Calcium (Atorvastatin Calcium 40 Mg Tablet) 40 mg PO BEDTIME [facility] Last Admin: 08/02/21 21:21 Dose: 40 mg Documented by: JULIO Baricitinib (Baricitinib 2 Mg Tablet) 4 mg PO DAILY [facility] Stop: 08/13/21 09:01 Last Admin: 08/03/21 08:25 Dose: 4 mg Documented by: ABIMBOLA Calcium Carbonate (Calcium Carbonate 500 Mg Tablet) 1,000 mg PO BEDTIME [facility] Last Admin: 08/02/21 21:21 Dose: 1,000 mg Documented by: JULIO Carbamazepine (Carbamazepine Er 200 Mg Tab.Er.12h) 400 mg PO BID [facility] Last Admin: 08/03/21 08:25 Dose: 400 mg Documented by: ABIMBOLA Chlorhexidine Gluconate (Chlorhexidine Gluc Oral Rinse 15 Ml Mouthwash) 15 ml BUCCAL BID [facility] Last Admin: 08/03/21 08:25 Dose: 15 ml Documented by: ABIMBOLA Dexamethasone Sodium Phosphate (Dexamethasone Sod Phosphate 4 Mg/Ml Vial) 6 mg IVPUSH DAILY [facility] Last Admin: 08/03/21 08:25 Dose: 6 mg Documented by: ABIMBOLA Divalproex Sodium (Divalproex Sodium 250 Mg Tablet.) 250 mg PO BEDTIME [facility] Last Admin: 08/02/21 21:21 Dose: 250 mg Documented by: JULIO Divalproex Sodium (Divalproex Sodium 500 Mg Tablet.) 500 mg PO DAILY [facility] Last Admin: 08/03/21 08:25 Dose: 500 mg Documented by: ABIMBOLA Enoxaparin Sodium (Enoxaparin Sodium 80 Mg/0.8 Ml Syringe) 70 mg 1 mg/kg (70 mg) SUBCUT Q12H [facility] Last Admin: 08/03/21 12:20 Dose: 70 mg Documented by: ABIMBOLA Gabapentin (Gabapentin 300 Mg Capsule) 300 mg PO DAILY [facility] Last Admin: 08/03/21 08:25 Dose: 300 mg Documented by: ABIMBOLA Gabapentin (Gabapentin 400 Mg Capsule) 400 mg PO BEDTIME [facility] Last Admin: 08/02/21 21:21 Dose: 400 mg Documented by: JULIO Mycophenolate Sodium (Mycophenolate Sodium 180 Mg Tablet.) 360 mg PO BEDTIME [facility] Last Admin: 07/28/21 20:40 Dose: 360 mg Documented by: EDWARD Mycophenolate Sodium (Mycophenolate Sodium 180 Mg Tablet.) 720 mg PO DAILY [facility] Last Admin: 07/29/21 11:10 Dose: Not Given Documented by: BOYD Non-Admin Reason: on hold Ondansetron HCl (Ondansetron Hcl 4 Mg/2 Ml Vial) 4 mg IVPUSH Q8H PRN PRN Reason: Nausea and Vomiting Pharmacy Consult (Consult Rx Perform Med Rec) 1 each MISCELLANE ONCE PRN PRN Reason: Consult order Pharmacy Consult (Consult Rx Vancomycin Dosing) 1 each MISCELLANE DAILY PRN PRN Reason: Consult order Sodium Chloride (0.9 % Sodium Chloride Flush 3 Ml Syringe) 3 ml IVFLUSH QSHIFT [facility] Last Admin: 08/03/21 08:26 Dose: 3 ml Documented by: BAIMBOLA Venlafaxine HCl (Venlafaxine Hcl Er 150 Mg Cap.Er.24h) 150 mg PO DAILY [facility] Last Admin: 08/03/21 08:25 Dose: 150 mg Documented by: ABIMBOLA Vitamin D (Cholecalciferol (Vitamin D3) 25 Mcg Tablet) 125 mcg PO DAILY [facility] Last Admin: 08/03/21 08:25 Dose: 125 mcg Documented by: ABIMBOLA Labs CBC & Chem 7: 08/03/21 06:44 08/03/21 06:44 Labs: Laboratory Results - last 24 hr 08/03/21 08/03/21 08/03/21 06:44 06:44 06:44 MCV 100.0 H MCH 31.5 MCHC 31.5 RDW 12.2 Plt Count 283 MPV 10.0 Absolute Nucleated RBC 0.000 Nucleated RBC % (auto) 0.0 D-Dimer High Sensitivty 405 VBG pH VBG pCO2 VBG pO2 VBG HCO3 VBG O2 Saturation VBG Base Excess Anion Gap 14 Estim Creat Clear Calc 82.0 Estimated GFR > 60 Random Glucose 76 Calcium 9.3 C-Reactive Protein 10.25 H 08/03/21 06:57 MCV MCH MCHC RDW Plt Count MPV Absolute Nucleated RBC Nucleated RBC % (auto) D-Dimer High Sensitivty VBG pH 7.51 H VBG pCO2 44 VBG pO2 48 VBG HCO3 35 H VBG O2 Saturation 75.0 VBG Base Excess 11.1 Anion Gap Estim Creat Clear Calc Estimated GFR Random Glucose Calcium C-Reactive Protein Microbiology Microbiology Results: Microbiology 07/29/21 04:05 Blood Culture - Final Blood - Venous No growth after 5 days. 07/29/21 04:10 Blood Culture - Final Blood - Venous No growth after 5 days. Assessment and Plan (1) COVID-19: Status: Acute Assessment and Plan: hospital d#8 71yo F with MS on mycophenolate admitted for hypoxia due to severe COVID-19 pneumonia # viral sepsis # severe COVID-19 pneumonia - got 8d of dexamethasone; will switch to methlyprednisolone 40mg IV q8h and taper once she improves - baricitinib d#11/27 - vanco + pip/aman added 07/29/21 for concern of worsening pneumonia but d/c'ed 08/01/21 with negative BCx and low PCT - trend inflammatory markers - if worsens, consider change to IV methylprednisolone and extend steroid course with taper # acute hypoxic respiratory failure - on HFNC, wean O2 as tolerated, encourage awake proning # question of PE - CTA with possible lobar filling deficit but could have been artifact; V/Q very low probability; BLE and BUE Dopplers negative - consider repeat CTA when more stable but in the meanwhile, keep on therapeutic -dose LMWH 1 mg/kg q12h # BEAN - resolved, HCTZ d/c'ed # HTN - monitor- HCTZ d/c'ed for BEAN # HLD - continue statin # MS - MMF held while on steroids # sz disorder - continue carbamazepine, valproate, gabapentin # mood disorder - continue gabapentin, methylphenidate, venlafaxine # VTE ppx - LMWH Quality Stroke Does the patient have a stroke diagnosis?: No VTE Prior VTE?: No VTE Risk Level:: Medical - moderate - high VTE Device Contraindication: Treatment Not Indicated VTE Drug Contraindication: N/A - Med Ordered
[2021-08-03] MEDS: methylPREDNISolone Sod Succ 40 MG/ML VIAL IVPUSH ×2 (13:59→21:03)
--- NOTE | 2021-08-03 15:27 | PC.NURSE ---
Patient no void 7-3pm. Bladder scanned for 501. Straight cath per order for 600cc plus pad was soaked with urine. DTV #1 at [address].
[2021-08-03] MEDS: Divalproex Sodium 250 MG TABLET.DR PO (21:03)
[2021-08-03] MEDS: Gabapentin 400 MG CAPSULE PO (21:03)
[2021-08-03] MEDS: Atorvastatin Calcium 40 MG TABLET PO (21:03)
[2021-08-04] VITALS (12 sets, daily range): BP systolic 115–135; BP diastolic 60–81; PULSE 69–93; RESP 18–20; TEMP 36.1–36.6; O2SAT 92–100
[2021-08-04] MEDS: 0.9 % Sodium Chloride Flush 3 ML SYRINGE IVFLUSH ×4 (00:11→20:13)
[2021-08-04] MEDS: Acetaminophen 325 MG TABLET 650 MG PO (01:34)
[2021-08-04] MEDS: methylPREDNISolone Sod Succ 40 MG/ML VIAL IVPUSH ×3 (05:40→20:10)
[2021-08-04 06:54] LABS: Anion Gap 12 (12-20); Blood Urea Nitrogen 30 mg/dL (9-16); Calcium 9.3 mg/dL (8.4-10.2); Carbon Dioxide 33 mmol/L (22-29); Chloride 98 mmol/L (96-108); Creatinine Clr Calc Pharmacy 70.9; Estimated Glomerular Filt Rate > 60; Glucose Random 100 mg/dL (60-115); Potassium 5.1 mmol/L (3.3-5.1); Sodium 138 mmol/L (135-145)
[2021-08-04 09:10] LABS: Hematocrit 27.7 % (37.0-47.0); Hemoglobin 8.6 g/dl (12.0-16.0); Mean Platelet Volume 10.9 fL (9.4-12.3); Platelet Count 332 X10*3/uL (160-400); Red Blood Count 2.77 X10*6/uL (4.20-5.50); Red Cell Distribution Width 12.1 % (11.0-16.0); White Blood Count 6.6 X10*3/uL (4.8-10.8)
[2021-08-04] MEDS: Chlorhexidine Gluc Oral Rinse 15 ML MOUTHWASH BUCCAL ×2 (10:34→20:10)
[2021-08-04] MEDS: Venlafaxine HCl ER 150 MG CAP.ER.24H PO (10:34)
[2021-08-04] MEDS: Cholecalciferol (Vitamin D3) 25 MCG TABLET 125 MCG PO (10:34)
[2021-08-04] MEDS: carBAMazepine ER 200 MG TAB.ER.12H 400 MG PO ×2 (10:35→20:10)
[2021-08-04] MEDS: Gabapentin 300 MG CAPSULE PO (10:35)
[2021-08-04] MEDS: Divalproex Sodium 500 MG TABLET.DR PO (10:35)
[2021-08-04] MEDS: Enoxaparin Sodium 80 MG/0.8 ML SYRINGE 70 MG SUBCUT ×2 (10:35→20:12)
--- NOTE | 2021-08-04 12:56 | MHC.CM.PN ---
Per ROUNDS discussion, Patient is not yet medically cleared for dc (IV Solu Medrol, high flow O2). PT recommends LTC VS 24/7 Care at home and CM will follow.
--- NOTE | 2021-08-04 13:55 | P.PNIM_ITS ---
Subjective Subjective Date of Service: 08/04/21 Interval History: Remain on high-flow oxygen, maintaining finger oximetry 95%, no acute issues overnight. Review of Systems Review of Systems: Yes all other systems are reviewed and are negative Physical Exam Vital Signs: Vital Signs: Last Vital Signs Temp 97.7 F 08/04/21 11:54 Pulse 93 08/04/21 11:54 Resp 18 08/04/21 12:01 BP 119/61 08/04/21 11:54 Pulse Ox 95 08/04/21 11:54 BMI result Body Mass Index 26.1 Gen: Awake alert x3,no respiratory distress Neck: sup ple, no JVD Lungs: clear to ausculta tion bilaterally, diminished Heart: tachycardic, no mu rmurs Abd: soft, n on-tender, non-dis tended Ext: no khris ma Skin: warm/well -perfused Neuro: a lert and oriented x3, no focal findi ngs Psych: appropr iate affect ? Objective Data Active Medications Acetaminophen (Acetaminophen 325 Mg Tablet) 650 mg PO Q4H PRN PRN Reason: Pain, Mild (Pain Scale 1-3) Last Admin: 08/04/21 01:34 Dose: 650 mg Documented by: DEBBIE Atorvastatin Calcium (Atorvastatin Calcium 40 Mg Tablet) 40 mg PO BEDTIME [facility] Last Admin: 08/03/21 21:03 Dose: 40 mg Documented by: JULIO Baricitinib (Baricitinib 2 Mg Tablet) 4 mg PO DAILY [facility] Stop: 08/13/21 09:01 Last Admin: 08/04/21 10:34 Dose: 4 mg Documented by: MARTI Calcium Carbonate (Calcium Carbonate 500 Mg Tablet) 1,000 mg PO BEDTIME [facility] Last Admin: 08/03/21 21:03 Dose: 1,000 mg Documented by: JULIO Carbamazepine (Carbamazepine Er 200 Mg Tab.Er.12h) 400 mg PO BID [facility] Last Admin: 08/04/21 10:35 Dose: 400 mg Documented by: MARTI Chlorhexidine Gluconate (Chlorhexidine Gluc Oral Rinse 15 Ml Mouthwash) 15 ml BUCCAL BID [facility] Last Admin: 08/04/21 10:34 Dose: 15 ml Documented by: MARTI Divalproex Sodium (Divalproex Sodium 250 Mg Tablet.Dr) 250 mg PO BEDTIME [facility] Last Admin: 08/03/21 21:03 Dose: 250 mg Documented by: JULIO Divalproex Sodium (Divalproex Sodium 500 Mg Tablet.) 500 mg PO DAILY [facility] Last Admin: 08/04/21 10:35 Dose: 500 mg Documented by: MARTI Enoxaparin Sodium (Enoxaparin Sodium 80 Mg/0.8 Ml Syringe) 70 mg 1 mg/kg (70 mg) SUBCUT Q12H [facility] Last Admin: 08/04/21 10:35 Dose: 70 mg Documented by: MARTI Gabapentin (Gabapentin 300 Mg Capsule) 300 mg PO DAILY [facility] Last Admin: 08/04/21 10:35 Dose: 300 mg Documented by: MARTI Gabapentin (Gabapentin 400 Mg Capsule) 400 mg PO BEDTIME [facility] Last Admin: 08/03/21 21:03 Dose: 400 mg Documented by: JULIO Methylprednisolone Sodium Succinate (Methylprednisolone Sod Succ 40 Mg/Ml Vial) 40 mg IVPUSH Q8H [facility] Last Admin: 08/04/21 12:45 Dose: 40 mg Documented by: MARTI Mycophenolate Sodium (Mycophenolate Sodium 180 Mg Tablet.) 360 mg PO BEDTIME [facility] Last Admin: 07/28/21 20:40 Dose: 360 mg Documented by: EDWARD Mycophenolate Sodium (Mycophenolate Sodium 180 Mg Tablet.) 720 mg PO DAILY [facility] Last Admin: 07/29/21 11:10 Dose: Not Given Documented by: BOYD Non-Admin Reason: on hold Ondansetron HCl (Ondansetron Hcl 4 Mg/2 Ml Vial) 4 mg IVPUSH Q8H PRN PRN Reason: Nausea and Vomiting Pharmacy Consult (Consult Rx Perform Med Rec) 1 each MISCELLANE ONCE PRN PRN Reason: Consult order Pharmacy Consult (Consult Rx Vancomycin Dosing) 1 each MISCELLANE DAILY PRN PRN Reason: Consult order Sodium Chloride (0.9 % Sodium Chloride Flush 3 Ml Syringe) 3 ml IVFLUSH QSHIFT [facility] Last Admin: 08/04/21 10:34 Dose: 3 ml Documented by: MARTI Venlafaxine HCl (Venlafaxine Hcl Er 150 Mg Cap.Er.24h) 150 mg PO DAILY [facility] Last Admin: 08/04/21 10:34 Dose: 150 mg Documented by: MARTI Vitamin D (Cholecalciferol (Vitamin D3) 25 Mcg Tablet) 125 mcg PO DAILY [facility] Last Admin: 08/04/21 10:34 Dose: 125 mcg Documented by: MARTI Labs CBC & Chem 7: 08/04/21 06:19 08/04/21 06:19 Labs: Laboratory Results - last 24 hr 08/04/21 08/04/21 06:19 06:19 MCV 100.0 H MCH 31.0 MCHC 31.0 RDW 12.1 Plt Count 332 MPV 10.9 Absolute Nucleated RBC 0.000 Nucleated RBC % (auto) 0.0 Anion Gap 12 Estim Creat Clear Calc 70.9 Estimated GFR > 60 Random Glucose 100 Calcium 9.3 Assessment and Plan (1) BEAN (acute kidney injury): Status: Acute (2) COVID-19: Status: Acute (3) Hypoxia: Status: Acute Assessment and Plan: 71yo F with MS on mycophenolate admitted for hypoxia due to severe COVID-19 pneumonia # viral sepsis due to severe COVID-19 pneumonia No fevers normal WBC, persistent hypoxia - s/p 8d of dexamethasone; now on methlyprednisolone 40mg IV q8h day 2 will gradually wean - baricitinib d#12/27 - vanco + pip/aman added 07/29/21 for concern of worsening pneumonia but d/c'ed 08/01/21 with negative BCx and low PCT - trend inflammatory markers # acute hypoxic respiratory failure - on HFNC, wean O2 as tolerated, encourage frequent positioning change, awake proning # question of PE - CTA with possible lobar filling deficit but could have been artifact; V/Q very low probability; BLE and BUE Dopplers negative - consider repeat CTA when more stable but in the meanwhile, keep on therapeutic-dose LMWH 1 mg/kg q12h # BEAN - resolved, HCTZ d/c'ed # HTN - stable blood pressure # HLD - continue statin # MS - MMF held while on steroids # sz disorder - continue carbamazepine, valproate, gabapentin, seizure precaution # mood disorder - continue gabapentin, methylphenidate, and venlafaxine # VTE ppx - LMWH Quality Stroke Does the patient have a stroke diagnosis?: No VTE Prior VTE?: No VTE Risk Level:: Medical - moderate - high VTE Device Contraindication: Treatment Not Indicated VTE Drug Contraindication: N/A - Med Ordered
[2021-08-04] MEDS: Divalproex Sodium 250 MG TABLET.DR PO (20:10)
[2021-08-04] MEDS: Gabapentin 400 MG CAPSULE PO (20:10)
[2021-08-04] MEDS: Atorvastatin Calcium 40 MG TABLET PO (20:11)
[2021-08-05] VITALS (12 sets, daily range): BP systolic 99–137; BP diastolic 56–78; PULSE 80–100; RESP 16–20; TEMP 36.7–37.2; O2SAT 90–97
[2021-08-05] MEDS: methylPREDNISolone Sod Succ 40 MG/ML VIAL IVPUSH ×3 (03:49→20:15)
[2021-08-05] MEDS: Cholecalciferol (Vitamin D3) 25 MCG TABLET 125 MCG PO (08:35)
[2021-08-05] MEDS: 0.9 % Sodium Chloride Flush 3 ML SYRINGE IVFLUSH ×3 (08:35→23:44)
[2021-08-05] MEDS: Gabapentin 300 MG CAPSULE PO (08:36)
[2021-08-05] MEDS: Chlorhexidine Gluc Oral Rinse 15 ML MOUTHWASH BUCCAL ×2 (08:36→20:15)
[2021-08-05] MEDS: Divalproex Sodium 500 MG TABLET.DR PO (08:36)
[2021-08-05] MEDS: Venlafaxine HCl ER 150 MG CAP.ER.24H PO (08:36)
[2021-08-05] MEDS: carBAMazepine ER 200 MG TAB.ER.12H 400 MG PO ×2 (08:36→20:15)
[2021-08-05] MEDS: Enoxaparin Sodium 80 MG/0.8 ML SYRINGE 70 MG SUBCUT ×2 (09:58→22:39)
[2021-08-05] MEDS: Gabapentin 400 MG CAPSULE PO (20:15)
[2021-08-05] MEDS: Atorvastatin Calcium 40 MG TABLET PO (20:15)
[2021-08-05] MEDS: Divalproex Sodium 250 MG TABLET.DR PO (20:17)
[2021-08-06] VITALS (11 sets, daily range): BP systolic 98–156; BP diastolic 61–90; PULSE 86–99; RESP 15–20; TEMP 35.5–37.3; O2SAT 90–100
[2021-08-06] MEDS: methylPREDNISolone Sod Succ 40 MG/ML VIAL IVPUSH ×3 (04:53→19:56)
[2021-08-06] MEDS: carBAMazepine ER 200 MG TAB.ER.12H 400 MG PO ×2 (08:40→19:56)
[2021-08-06] MEDS: Venlafaxine HCl ER 150 MG CAP.ER.24H PO (08:41)
[2021-08-06] MEDS: Cholecalciferol (Vitamin D3) 25 MCG TABLET 125 MCG PO (08:41)
[2021-08-06] MEDS: Divalproex Sodium 500 MG TABLET.DR PO (08:41)
[2021-08-06] MEDS: Chlorhexidine Gluc Oral Rinse 15 ML MOUTHWASH BUCCAL ×2 (08:42→19:55)
[2021-08-06] MEDS: Gabapentin 300 MG CAPSULE PO (08:42)
[2021-08-06] MEDS: Enoxaparin Sodium 80 MG/0.8 ML SYRINGE 70 MG SUBCUT (08:42)
[2021-08-06] MEDS: 0.9 % Sodium Chloride Flush 3 ML SYRINGE IVFLUSH ×2 (08:43→19:55)
--- NOTE | 2021-08-06 11:38 | MHC.CM.PN ---
Per ROUNDS discussion, Patient is still on high flow and not yet medically cleared for dc . Home with 24/7 care vs LTC placement is the goal and CM will continue to follow.
--- NOTE | 2021-08-06 17:48 | P.PNIM_ITS ---
Subjective Subjective Date of Service: 08/06/21 Interval History: Offers no acute complaints no change in clinical condition and last 24 hours denies shortness of breath no cough, no fever chills, overnight. Review of Systems Review of Systems: Yes all other systems are reviewed and are negative Physical Exam Vital Signs: Vital Signs: Last Vital Signs Temp 99.2 F 08/06/21 15:17 Pulse 96 08/06/21 15:17 Resp 18 08/06/21 15:30 BP 156/90 H 08/06/21 15:17 Pulse Ox 100 08/06/21 15:17 BMI result Body Mass Index 26.1 Gen: No respiratory distress awake alert times Neck: supple Lungs: clear to auscultation bilaterally Heart: Regular rate rhythm, no murmurs Abd: soft, non-tender, non-distended Ext: no edema Skin: warm/well-perfused Neuro: alert and oriented x3, no focal findings Psych: appropriate affect ? Objective Data Active Medications Acetaminophen (Acetaminophen 325 Mg Tablet) 650 mg PO Q4H PRN PRN Reason: Pain, Mild (Pain Scale 1-3) Last Admin: 08/04/21 01:34 Dose: 650 mg Documented by: DEBBIE Atorvastatin Calcium (Atorvastatin Calcium 40 Mg Tablet) 40 mg PO BEDTIME [facility] Last Admin: 08/05/21 20:15 Dose: 40 mg Documented by: BJORN Baricitinib (Baricitinib 2 Mg Tablet) 4 mg PO DAILY [facility] Stop: 08/13/21 09:01 Last Admin: 08/06/21 08:41 Dose: 4 mg Documented by: CLAUDIA Calcium Carbonate (Calcium Carbonate 500 Mg Tablet) 1,000 mg PO BEDTIME [facility] Last Admin: 08/05/21 20:16 Dose: 1,000 mg Documented by: BJORN Carbamazepine (Carbamazepine Er 200 Mg Tab.Er.12h) 400 mg PO BID [facility] Last Admin: 08/06/21 08:40 Dose: 400 mg Documented by: CLAUDIA Chlorhexidine Gluconate (Chlorhexidine Gluc Oral Rinse 15 Ml Mouthwash) 15 ml BUCCAL BID [facility] Last Admin: 08/06/21 08:42 Dose: 15 ml Documented by: CLAUDIA Divalproex Sodium (Divalproex Sodium 250 Mg Tablet.Dr) 250 mg PO BEDTIME [facility] Last Admin: 08/05/21 20:17 Dose: 250 mg Documented by: BJORN Divalproex Sodium (Divalproex Sodium 500 Mg Tablet.) 500 mg PO DAILY [facility] Last Admin: 08/06/21 08:41 Dose: 500 mg Documented by: CLAUDIA Enoxaparin Sodium (Enoxaparin Sodium 80 Mg/0.8 Ml Syringe) 70 mg 1 mg/kg (70 mg) SUBCUT Q12H [facility] Last Admin: 08/06/21 08:42 Dose: 70 mg Documented by: CLAUDIA Gabapentin (Gabapentin 300 Mg Capsule) 300 mg PO DAILY [facility] Last Admin: 08/06/21 08:42 Dose: 300 mg Documented by: CLAUDIA Gabapentin (Gabapentin 400 Mg Capsule) 400 mg PO BEDTIME [facility] Last Admin: 08/05/21 20:15 Dose: 400 mg Documented by: BJORN Methylprednisolone Sodium Succinate (Methylprednisolone Sod Succ 40 Mg/Ml Vial) 40 mg IVPUSH Q8H [facility] Last Admin: 08/06/21 12:14 Dose: 40 mg Documented by: CLAUDIA Mycophenolate Sodium (Mycophenolate Sodium 180 Mg Tablet.) 360 mg PO BEDTIME [facility] Last Admin: 07/28/21 20:40 Dose: 360 mg Documented by: EDWARD Mycophenolate Sodium (Mycophenolate Sodium 180 Mg Tablet.) 720 mg PO DAILY [facility] Last Admin: 07/29/21 11:10 Dose: Not Given Documented by: BOYD Non-Admin Reason: on hold Ondansetron HCl (Ondansetron Hcl 4 Mg/2 Ml Vial) 4 mg IVPUSH Q8H PRN PRN Reason: Nausea and Vomiting Pharmacy Consult (Consult Rx Perform Med Rec) 1 each MISCELLANE ONCE PRN PRN Reason: Consult order Sodium Chloride (0.9 % Sodium Chloride Flush 3 Ml Syringe) 3 ml IVFLUSH QSHIFT [facility] Last Admin: 08/06/21 08:43 Dose: 3 ml Documented by: CLAUDIA Venlafaxine HCl (Venlafaxine Hcl Er 150 Mg Cap.Er.24h) 150 mg PO DAILY [facility] Last Admin: 08/06/21 08:41 Dose: 150 mg Documented by: CLAUDIA Vitamin D (Cholecalciferol (Vitamin D3) 25 Mcg Tablet) 125 mcg PO DAILY [facility] Last Admin: 08/06/21 08:41 Dose: 125 mcg Documented by: CLAUDIA Labs CBC & Chem 7: 08/04/21 06:19 08/04/21 06:19 Assessment and Plan (1) BEAN (acute kidney injury): Status: Acute (2) COVID-19: Status: Acute (3) Weakness: Status: Acute (4) Hypoxia: Status: Acute Assessment and Plan: 71yo F with MS on mycophenolate admitted for hypoxia due to severe COVID-19 pneumonia # viral sepsis due to severe COVID-19 pneumonia ? No fevers normal WBC, persistent hypoxia - s/p 8d of dexamethasone; now on methlyprednisolone 40mg IV q8h day 4 will gradually wean - baricitinib d#02/26 - vanco + pip/aman added 07/29/21 for concern of worsening pneumonia but d/c'ed 08/01/21 with negative BCx and low PCT - trend inflammatory markers # acute hypoxic respiratory failure - on HFNC, wean O2 as tolerated, encourage frequent positioning change, awake proning # question of PE - CTA with possible lobar filling deficit but could have been artifact; V/Q very low probability; BLE and BUE Dopplers negative - consider repeat CTA when more stable but in the meanwhile, keep on therapeutic-dose LMWH 1 mg/kg q12h # BEAN - resolved, HCTZ d/c'ed # HTN - stable blood pressure # HLD - continue statin # MS - MMF held while on steroids # sz disorder - continue carbamazepine, valproate, gabapentin, seizure precaution # mood disorder - continue gabapentin, methylphenidate, and venlafaxine # VTE ppx - LMWH Quality Stroke Does the patient have a stroke diagnosis?: No VTE Prior VTE?: No VTE Risk Level:: Medical - moderate - high VTE Device Contraindication: Treatment Not Indicated VTE Drug Contraindication: N/A - Med Ordered
[2021-08-06] MEDS: Divalproex Sodium 250 MG TABLET.DR PO (19:55)
[2021-08-06] MEDS: Atorvastatin Calcium 40 MG TABLET PO (19:56)
[2021-08-06] MEDS: Gabapentin 400 MG CAPSULE PO (19:56)
[2021-08-07] VITALS (9 sets, daily range): BP systolic 111–132; BP diastolic 64–82; PULSE 69–96; RESP 18–20; TEMP 36.4–37.2; O2SAT 92–99
[2021-08-07] MEDS: Enoxaparin Sodium 80 MG/0.8 ML SYRINGE 70 MG SUBCUT ×3 (00:24→22:05)
[2021-08-07] MEDS: 0.9 % Sodium Chloride Flush 3 ML SYRINGE IVFLUSH ×4 (00:24→19:57)
[2021-08-07] MEDS: methylPREDNISolone Sod Succ 40 MG/ML VIAL IVPUSH ×3 (05:54→19:56)
[2021-08-07] MEDS: Gabapentin 300 MG CAPSULE PO (09:47)
[2021-08-07] MEDS: Chlorhexidine Gluc Oral Rinse 15 ML MOUTHWASH BUCCAL ×2 (09:47→19:56)
[2021-08-07] MEDS: carBAMazepine ER 200 MG TAB.ER.12H 400 MG PO ×2 (09:48→19:56)
[2021-08-07] MEDS: Cholecalciferol (Vitamin D3) 25 MCG TABLET 125 MCG PO (09:48)
[2021-08-07] MEDS: Divalproex Sodium 500 MG TABLET.DR PO (09:48)
[2021-08-07] MEDS: Venlafaxine HCl ER 150 MG CAP.ER.24H PO (09:56)
--- NOTE | 2021-08-07 14:50 | HO.PM.IMPN ---
Subjective Subjective Date of Service: 08/07/21 Interval History: Feels good, slept well, offers no acute complaints, denies shortness of breath, no chest pain no other acute issues overnight oxygenation remains stable on high-flow oxygen. Review of Systems Review of Systems: Yes all other systems are reviewed and are negative Physical Exam Vital Signs: Vital Signs: Last Vital Signs Temp 97.6 F 08/07/21 11:36 Pulse 85 08/07/21 11:36 Resp 18 08/07/21 12:39 BP 113/70 08/07/21 11:36 Pulse Ox 99 08/07/21 11:36 BMI result Body Mass Index 26.1 Gen:? No respiratory distress awake alert times Neck: supple Lungs: clear to auscultation bilaterally Heart:? Regular rate rhythm, no murmurs Abd: soft, non-tender, non-distended Ext: no edema Skin: warm/well-perfused Neuro: alert and oriented x3, no focal findings Psych: appropriate affect ? Objective Data Active Medications Acetaminophen (Acetaminophen 325 Mg Tablet) 650 mg PO Q4H PRN PRN Reason: Pain, Mild (Pain Scale 1-3) Last Admin: 08/04/21 01:34 Dose: 650 mg Documented by: DEBBIE Atorvastatin Calcium (Atorvastatin Calcium 40 Mg Tablet) 40 mg PO BEDTIME [facility] Last Admin: 08/06/21 19:56 Dose: 40 mg Documented by: EDWARD Baricitinib (Baricitinib 2 Mg Tablet) 4 mg PO DAILY [facility] Stop: 08/13/21 09:01 Last Admin: 08/07/21 09:48 Dose: 4 mg Documented by: ABIMBOLA Calcium Carbonate (Calcium Carbonate 500 Mg Tablet) 1,000 mg PO BEDTIME [facility] Last Admin: 08/06/21 19:56 Dose: 1,000 mg Documented by: EDWARD Carbamazepine (Carbamazepine Er 200 Mg Tab.Er.12h) 400 mg PO BID [facility] Last Admin: 08/07/21 09:48 Dose: 400 mg Documented by: ABIMBOLA Chlorhexidine Gluconate (Chlorhexidine Gluc Oral Rinse 15 Ml Mouthwash) 15 ml BUCCAL BID [facility] Last Admin: 08/07/21 09:47 Dose: 15 ml Documented by: ABIMBOLA Divalproex Sodium (Divalproex Sodium 250 Mg Tablet.Dr) 250 mg PO BEDTIME [facility] Last Admin: 08/06/21 19:55 Dose: 250 mg Documented by: EDWARD Divalproex Sodium (Divalproex Sodium 500 Mg Tablet.) 500 mg PO DAILY [facility] Last Admin: 08/07/21 09:48 Dose: 500 mg Documented by: ABIMBOLA Enoxaparin Sodium (Enoxaparin Sodium 80 Mg/0.8 Ml Syringe) 70 mg 1 mg/kg (70 mg) SUBCUT Q12H [facility] Last Admin: 08/07/21 09:47 Dose: 70 mg Documented by: ABIMBOLA Gabapentin (Gabapentin 300 Mg Capsule) 300 mg PO DAILY [facility] Last Admin: 08/07/21 09:47 Dose: 300 mg Documented by: ABIMBOLA Gabapentin (Gabapentin 400 Mg Capsule) 400 mg PO BEDTIME [facility] Last Admin: 08/06/21 19:56 Dose: 400 mg Documented by: EDWARD Methylprednisolone Sodium Succinate (Methylprednisolone Sod Succ 40 Mg/Ml Vial) 40 mg IVPUSH Q8H [facility] Last Admin: 08/07/21 14:39 Dose: 40 mg Documented by: ABIMBOLA Mycophenolate Sodium (Mycophenolate Sodium 180 Mg Tablet.) 360 mg PO BEDTIME [facility] Last Admin: 07/28/21 20:40 Dose: 360 mg Documented by: EDWARD Mycophenolate Sodium (Mycophenolate Sodium 180 Mg Tablet.) 720 mg PO DAILY [facility] Last Admin: 07/29/21 11:10 Dose: Not Given Documented by: BOYD Non-Admin Reason: on hold Ondansetron HCl (Ondansetron Hcl 4 Mg/2 Ml Vial) 4 mg IVPUSH Q8H PRN PRN Reason: Nausea and Vomiting Pharmacy Consult (Consult Rx Perform Med Rec) 1 each MISCELLANE ONCE PRN PRN Reason: Consult order Sodium Chloride (0.9 % Sodium Chloride Flush 3 Ml Syringe) 3 ml IVFLUSH QSHIFT [facility] Last Admin: 08/07/21 09:49 Dose: 3 ml Documented by: ABIMBOLA Venlafaxine HCl (Venlafaxine Hcl Er 150 Mg Cap.Er.24h) 150 mg PO DAILY [facility] Last Admin: 08/07/21 09:56 Dose: 150 mg Documented by: ABIMBOLA Vitamin D (Cholecalciferol (Vitamin D3) 25 Mcg Tablet) 125 mcg PO DAILY [facility] Last Admin: 08/07/21 09:48 Dose: 125 mcg Documented by: ABIMBOLA Labs CBC & Chem 7: 08/04/21 06:19 08/04/21 06:19 Assessment and Plan (1) BEAN (acute kidney injury): Status: Acute (2) COVID-19: Status: Acute (3) Weakness: Status: Acute (4) Hypoxia: Status: Acute Assessment and Plan: 71yo F with MS on mycophenolate admitted for hypoxia due to severe COVID-19 pneumonia # viral sepsis due to severe COVID-19 pneumonia ? No fevers normal WBC, persistent hypoxia, s/p 8d of dexamethasone; now on methlyprednisolone 40mg IV q8h day 4 will gradually wean - baricitinib d#03/29 - vanco + pip/aman added 07/29/21 for concern of worsening pneumonia but d/c'ed 08/01/21 with negative BCx and low PCT - CRP trending down # acute hypoxic respiratory failure - on HFNC, wean O2 as tolerated, encourage frequent positioning change, awake proning # question of PE - CTA with possible lobar filling deficit but could have been artifact; V/Q very low probability; BLE and BUE Dopplers negative - consider repeat CTA when more stable but in the meanwhile, cont. therapeutic-dose LMWH 1 mg/kg q12h # BEAN - resolved, HCTZ d/c'ed # HTN - stable blood pressure # HLD - continue statin # MS - MMF held while on steroids # sz disorder - continue carbamazepine, valproate, gabapentin, seizure precaution, no seizure-like activity noted # mood disorder - continue gabapentin, methylphenidate, and venlafaxine # VTE ppx - LMWH Quality Stroke Does the patient have a stroke diagnosis?: No VTE Prior VTE?: No VTE Risk Level:: Medical - moderate - high VTE Device Contraindication: Treatment Not Indicated VTE Drug Contraindication: N/A - Med Ordered
[2021-08-07] MEDS: Atorvastatin Calcium 40 MG TABLET PO (19:56)
[2021-08-07] MEDS: Gabapentin 400 MG CAPSULE PO (19:56)
[2021-08-07] MEDS: Divalproex Sodium 250 MG TABLET.DR PO (19:57)
[2021-08-08] VITALS (14 sets, daily range): BP systolic 123–156; BP diastolic 59–89; PULSE 68–94; RESP 18–20; TEMP 36.3–37.1; O2SAT 92–100
[2021-08-08] MEDS: methylPREDNISolone Sod Succ 40 MG/ML VIAL IVPUSH ×2 (05:56→15:03)
[2021-08-08] MEDS: Chlorhexidine Gluc Oral Rinse 15 ML MOUTHWASH BUCCAL ×2 (10:19→19:45)
[2021-08-08] MEDS: Enoxaparin Sodium 80 MG/0.8 ML SYRINGE 70 MG SUBCUT ×2 (10:19→21:35)
[2021-08-08] MEDS: carBAMazepine ER 200 MG TAB.ER.12H 400 MG PO ×2 (10:20→19:44)
[2021-08-08] MEDS: Venlafaxine HCl ER 150 MG CAP.ER.24H PO (10:20)
[2021-08-08] MEDS: Gabapentin 300 MG CAPSULE PO (10:20)
[2021-08-08] MEDS: Cholecalciferol (Vitamin D3) 25 MCG TABLET 125 MCG PO (10:20)
[2021-08-08] MEDS: Divalproex Sodium 500 MG TABLET.DR PO (10:20)
[2021-08-08] MEDS: 0.9 % Sodium Chloride Flush 3 ML SYRINGE IVFLUSH ×3 (10:21→19:45)
--- NOTE | 2021-08-08 13:21 | P.PNIM_ITS ---
Subjective Subjective Date of Service: 08/08/21 Interval History: Offers no acute complaints,oxygen requirement gradually improving now on 40 L of high-flow, complaining of constipation no other acute issues overnight. Review of Systems Review of Systems: Yes all other systems are reviewed and are negative Physical Exam Vital Signs: Vital Signs: Last Vital Signs Temp 98.1 F 08/08/21 11:38 Pulse 68 08/08/21 11:38 Resp 20 08/08/21 11:38 BP 149/59 H 08/08/21 11:38 Pulse Ox 92 08/08/21 11:38 BMI result Body Mass Index 26.1 Gen:? No respiratory distress awake alert times 3 Neck: supple,no jvd Lungs: clear to auscultation bilaterally Heart:? Regular rate rhythm, no murmurs Abd: soft, non-tender, non-distended Ext: no edema Skin: warm/well-perfused Neuro: alert and oriented x3, no focal findings Psych: appropriate affect ? Objective Data Active Medications Acetaminophen (Acetaminophen 325 Mg Tablet) 650 mg PO Q4H PRN PRN Reason: Pain, Mild (Pain Scale 1-3) Last Admin: 08/04/21 01:34 Dose: 650 mg Documented by: DEBBIE Atorvastatin Calcium (Atorvastatin Calcium 40 Mg Tablet) 40 mg PO BEDTIME [facility] Last Admin: 08/07/21 19:56 Dose: 40 mg Documented by: EDWARD Baricitinib (Baricitinib 2 Mg Tablet) 4 mg PO DAILY [facility] Stop: 08/13/21 09:01 Last Admin: 08/08/21 10:20 Dose: 4 mg Documented by: JERONIMO Calcium Carbonate (Calcium Carbonate 500 Mg Tablet) 1,000 mg PO BEDTIME [facility] Last Admin: 08/07/21 19:56 Dose: 1,000 mg Documented by: EDWARD Carbamazepine (Carbamazepine Er 200 Mg Tab.Er.12h) 400 mg PO BID [facility] Last Admin: 08/08/21 10:20 Dose: 400 mg Documented by: JERONIMO Chlorhexidine Gluconate (Chlorhexidine Gluc Oral Rinse 15 Ml Mouthwash) 15 ml BUCCAL BID [facility] Last Admin: 08/08/21 10:19 Dose: 15 ml Documented by: JERONIMO Divalproex Sodium (Divalproex Sodium 250 Mg Tablet.Dr) 250 mg PO BEDTIME [facility] Last Admin: 08/07/21 19:57 Dose: 250 mg Documented by: EDWARD Divalproex Sodium (Divalproex Sodium 500 Mg Tablet.) 500 mg PO DAILY [facility] Last Admin: 08/08/21 10:20 Dose: 500 mg Documented by: JERONIMO Docusate Sodium (Docusate Sodium 100 Mg Capsule) 200 mg PO DAILY [facility] Enoxaparin Sodium (Enoxaparin Sodium 80 Mg/0.8 Ml Syringe) 70 mg 1 mg/kg (70 mg) SUBCUT Q12H [facility] Last Admin: 08/08/21 10:19 Dose: 70 mg Documented by: JERONIMO Gabapentin (Gabapentin 300 Mg Capsule) 300 mg PO DAILY [facility] Last Admin: 08/08/21 10:20 Dose: 300 mg Documented by: JERONIMO Gabapentin (Gabapentin 400 Mg Capsule) 400 mg PO BEDTIME [facility] Last Admin: 08/07/21 19:56 Dose: 400 mg Documented by: EDWARD Lactulose (Lactulose 20 Gm/30 Ml Solution) 10 gm PO DAILY PRN PRN Reason: Constipation Methylprednisolone Sodium Succinate (Methylprednisolone Sod Succ 40 Mg/Ml Vial) 40 mg IVPUSH Q12H [facility] Mycophenolate Sodium (Mycophenolate Sodium 180 Mg Tablet.) 360 mg PO BEDTIME [facility] Last Admin: 07/28/21 20:40 Dose: 360 mg Documented by: EDWARD Mycophenolate Sodium (Mycophenolate Sodium 180 Mg Tablet.) 720 mg PO DAILY [facility] Last Admin: 07/29/21 11:10 Dose: Not Given Documented by: BOYD Non-Admin Reason: on hold Ondansetron HCl (Ondansetron Hcl 4 Mg/2 Ml Vial) 4 mg IVPUSH Q8H PRN PRN Reason: Nausea and Vomiting Pharmacy Consult (Consult Rx Perform Med Rec) 1 each MISCELLANE ONCE PRN PRN Reason: Consult order Sodium Chloride (0.9 % Sodium Chloride Flush 3 Ml Syringe) 3 ml IVFLUSH QSHIFT [facility] Last Admin: 08/08/21 10:21 Dose: 3 ml Documented by: JERONIMO Venlafaxine HCl (Venlafaxine Hcl Er 150 Mg Cap.Er.24h) 150 mg PO DAILY [facility] Last Admin: 08/08/21 10:20 Dose: 150 mg Documented by: JERONIMO Vitamin D (Cholecalciferol (Vitamin D3) 25 Mcg Tablet) 125 mcg PO DAILY [facility] Last Admin: 08/08/21 10:20 Dose: 125 mcg Documented by: JERONIMO Labs CBC & Chem 7: 08/04/21 06:19 08/04/21 06:19 Assessment and Plan (1) COVID-19: Status: Acute (2) Weakness: Status: Acute (3) Hypoxia: Status: Acute (4) BEAN (acute kidney injury): Status: Acute Assessment and Plan: 71yo F with MS on mycophenolate admitted for hypoxia due to severe COVID-19 pneumonia # acute hypoxic respiratory failure due to severe COVID-19 pneumonia ? No fevers normal WBC, persistent hypoxia, s/p 8d of dexamethasone; now on methlyprednisolone 40mg IV q8h day 5 will wean down to 40 mg q.12 hours - baricitinib d#04/29 - vanco + pip/aman added 07/29/21 for concern of worsening pneumonia but d/c'ed 08/01/21 with negative BCx and low PCT - CRP trending down - on HFNC, wean O2 as tolerated, encourage frequent positioning change,and awake proning # question of PE - CTA with possible lobar filling deficit but could have been artifact; V/Q very low probability; BLE and BUE Dopplers negative - consider repeat CTA when more stable but in the meanwhile, cont. therapeutic- dose LMWH 1 mg/kg q12h # constipation will add stool softeners and as needed lactulose # BEAN - resolved, HCTZ discontinued # HTN - few high blood pressure readings otherwise stable follow BP and add low-dose antihypertensive # HLD - continue statin # MS - wheelchair-bound # sz disorder - continue carbamazepine, valproate, gabapentin, seizure precaution, no seizure- like activity noted # mood disorder - continue gabapentin, methylphenidate, and venlafaxine # VTE ppx - LMWH Quality Stroke Does the patient have a stroke diagnosis?: No VTE Prior VTE?: No VTE Risk Level:: Medical - moderate - high VTE Device Contraindication: Treatment Not Indicated VTE Drug Contraindication: N/A - Med Ordered
[2021-08-08] MEDS: Docusate Sodium 100 MG CAPSULE 200 MG PO (15:03)
--- NOTE | 2021-08-08 18:03 | PC.NURSE ---
Bladder scan performed at 1500 - total volume shown on the scan 290ml, patient had one episode of incontinence and purewick collected 400ml. No need to straight cath at this time.
[2021-08-08] MEDS: Atorvastatin Calcium 40 MG TABLET PO (19:45)
[2021-08-08] MEDS: Divalproex Sodium 250 MG TABLET.DR PO (19:45)
[2021-08-08] MEDS: Gabapentin 400 MG CAPSULE PO (19:45)
[2021-08-09] VITALS (7 sets, daily range): BP systolic 104–144; BP diastolic 61–76; PULSE 80–111; RESP 18–20; TEMP 36.1–37.1; O2SAT 94–99
[2021-08-09] MEDS: methylPREDNISolone Sod Succ 40 MG/ML VIAL IVPUSH ×2 (00:44→13:40)
[2021-08-09] MEDS: Docusate Sodium 100 MG CAPSULE 200 MG PO (07:53)
[2021-08-09] MEDS: carBAMazepine ER 200 MG TAB.ER.12H 400 MG PO ×2 (07:54→20:29)
[2021-08-09] MEDS: Divalproex Sodium 500 MG TABLET.DR PO (07:55)
[2021-08-09] MEDS: Gabapentin 300 MG CAPSULE PO (07:55)
[2021-08-09] MEDS: Venlafaxine HCl ER 150 MG CAP.ER.24H PO (07:56)
[2021-08-09] MEDS: Cholecalciferol (Vitamin D3) 25 MCG TABLET 125 MCG PO (07:58)
[2021-08-09] MEDS: Chlorhexidine Gluc Oral Rinse 15 ML MOUTHWASH BUCCAL ×2 (07:59→20:32)
[2021-08-09] MEDS: 0.9 % Sodium Chloride Flush 3 ML SYRINGE IVFLUSH ×3 (07:59→20:33)
[2021-08-09 08:22] LABS: Hematocrit 30.9 % (37.0-47.0); Hemoglobin 9.6 g/dl (12.0-16.0); Mean Corpuscular HGB Conc 31.1 g/dl (31.0-35.0); Mean Corpuscular Hemoglobin 31.5 pg (27.0-33.0); Mean Corpuscular Volume 101.3 fL (80.0-98.0); Mean Platelet Volume 9.9 fL (9.4-12.3); Platelet Count 583 X10*3/uL (160-400); Red Blood Count 3.05 X10*6/uL (4.20-5.50); Red Cell Distribution Width 12.7 % (11.0-16.0); White Blood Count 10.9 X10*3/uL (4.8-10.8)
[2021-08-09 08:42] LABS: Anion Gap 10 (12-20); Blood Urea Nitrogen 25 mg/dL (9-16); Carbon Dioxide 32 mmol/L (22-29); Chloride 101 mmol/L (96-108); Creatinine Clr Calc Pharmacy 84.7; Estimated Glomerular Filt Rate > 60; Glucose Random 96 mg/dL (60-115); Potassium 5.4 mmol/L (3.3-5.1); Sodium 138 mmol/L (135-145)
[2021-08-09 08:48] LABS: Calcium 10.2 mg/dL (8.4-10.2)
[2021-08-09] MEDS: Enoxaparin Sodium 80 MG/0.8 ML SYRINGE 70 MG SUBCUT ×2 (11:31→22:47)
--- NOTE | 2021-08-09 12:30 | HO.PM.IMPN ---
Subjective Subjective Date of Service: 08/09/21 Interval History: Less oxygen requirement overnight, high-flow discontinued patient placed on 13 L bonilla cannula, denies shortness of breath, no cough, no chills, no acute overnight issues. Review of Systems Review of Systems: Yes all other systems are reviewed and are negative Physical Exam Vital Signs: Vital Signs: Last Vital Signs Temp 97.7 F 08/09/21 11:38 Pulse 94 08/09/21 11:38 Resp 18 08/09/21 11:38 BP 144/76 H 08/09/21 11:38 Pulse Ox 97 08/09/21 11:38 BMI result Body Mass Index 26.1 Gen:? No respiratory distress awake alert times 3 Neck: supple,no jvd Lungs: clear to auscultation bilaterally Heart:? Regular rate rhythm, no murmurs Abd: soft, non-tender, non-distended Ext: no edema Skin: warm/well-perfused Neuro: alert and oriented x3, no focal findings Psych: appropriate affect ? Objective Data Active Medications Acetaminophen (Acetaminophen 325 Mg Tablet) 650 mg PO Q4H PRN PRN Reason: Pain, Mild (Pain Scale 1-3) Last Admin: 08/04/21 01:34 Dose: 650 mg Documented by: DEBBIE Atorvastatin Calcium (Atorvastatin Calcium 40 Mg Tablet) 40 mg PO BEDTIME [facility] Last Admin: 08/08/21 19:45 Dose: 40 mg Documented by: ROBERTA Baricitinib (Baricitinib 2 Mg Tablet) 4 mg PO DAILY [facility] Stop: 08/13/21 09:01 Last Admin: 08/09/21 07:56 Dose: 4 mg Documented by: GAVIN Calcium Carbonate (Calcium Carbonate 500 Mg Tablet) 1,000 mg PO BEDTIME [facility] Last Admin: 08/08/21 19:44 Dose: 1,000 mg Documented by: ROBERTA Carbamazepine (Carbamazepine Er 200 Mg Tab.Er.12h) 400 mg PO BID [facility] Last Admin: 08/09/21 07:54 Dose: 400 mg Documented by: GAVIN Chlorhexidine Gluconate (Chlorhexidine Gluc Oral Rinse 15 Ml Mouthwash) 15 ml BUCCAL BID [facility] Last Admin: 08/09/21 07:59 Dose: 15 ml Documented by: GAVIN Divalproex Sodium (Divalproex Sodium 250 Mg Tablet.) 250 mg PO BEDTIME [facility] Last Admin: 08/08/21 19:45 Dose: 250 mg Documented by: ROBERTA Divalproex Sodium (Divalproex Sodium 500 Mg Tablet.) 500 mg PO DAILY [facility] Last Admin: 08/09/21 07:55 Dose: 500 mg Documented by: GAVIN Docusate Sodium (Docusate Sodium 100 Mg Capsule) 200 mg PO DAILY [facility] Last Admin: 08/09/21 07:53 Dose: 200 mg Documented by: GAVIN Enoxaparin Sodium (Enoxaparin Sodium 80 Mg/0.8 Ml Syringe) 70 mg 1 mg/kg (70 mg) SUBCUT Q12H [facility] Last Admin: 08/09/21 11:31 Dose: 70 mg Documented by: GAVIN Gabapentin (Gabapentin 300 Mg Capsule) 300 mg PO DAILY [facility] Last Admin: 08/09/21 07:55 Dose: 300 mg Documented by: GAVIN Gabapentin (Gabapentin 400 Mg Capsule) 400 mg PO BEDTIME [facility] Last Admin: 08/08/21 19:45 Dose: 400 mg Documented by: ROBERTA Lactulose (Lactulose 20 Gm/30 Ml Solution) 10 gm PO DAILY PRN PRN Reason: Constipation Methylprednisolone Sodium Succinate (Methylprednisolone Sod Succ 40 Mg/Ml Vial) 40 mg IVPUSH Q12H [facility] Last Admin: 08/09/21 00:44 Dose: 40 mg Documented by: ROBERTA Mycophenolate Sodium (Mycophenolate Sodium 180 Mg Tablet.) 360 mg PO BEDTIME [facility] Last Admin: 07/28/21 20:40 Dose: 360 mg Documented by: EDWARD Mycophenolate Sodium (Mycophenolate Sodium 180 Mg Tablet.) 720 mg PO DAILY [facility] Last Admin: 07/29/21 11:10 Dose: Not Given Documented by: BOYD Non-Admin Reason: on hold Ondansetron HCl (Ondansetron Hcl 4 Mg/2 Ml Vial) 4 mg IVPUSH Q8H PRN PRN Reason: Nausea and Vomiting Pharmacy Consult (Consult Rx Perform Med Rec) 1 each MISCELLANE ONCE PRN PRN Reason: Consult order Sodium Chloride (0.9 % Sodium Chloride Flush 3 Ml Syringe) 3 ml IVFLUSH QSHIFT [facility] Last Admin: 08/09/21 07:59 Dose: 3 ml Documented by: GAVIN Venlafaxine HCl (Venlafaxine Hcl Er 150 Mg Cap.Er.24h) 150 mg PO DAILY [facility] Last Admin: 08/09/21 07:56 Dose: 150 mg Documented by: GAVIN Vitamin D (Cholecalciferol (Vitamin D3) 25 Mcg Tablet) 125 mcg PO DAILY [facility] Last Admin: 08/09/21 07:58 Dose: 125 mcg Documented by: GAVIN Labs CBC & Chem 7: 08/09/21 07:46 08/09/21 07:46 Labs: Laboratory Results - last 24 hr 08/09/21 08/09/21 07:46 07:46 MCV 101.3 H MCH 31.5 MCHC 31.1 RDW 12.7 Plt Count 583 H D MPV 9.9 Absolute Nucleated RBC 0.000 Nucleated RBC % (auto) 0.0 Anion Gap 10 L Estim Creat Clear Calc 84.7 Estimated GFR > 60 Random Glucose 96 Calcium 10.2 D Assessment and Plan (1) BEAN (acute kidney injury): Status: Acute (2) COVID-19: Status: Acute (3) Weakness: Status: Acute (4) Hypoxia: Status: Acute Assessment and Plan: 71yo F with MS on mycophenolate admitted for hypoxia due to severe COVID-19 pneumonia # acute hypoxic respiratory failure due to severe COVID-19 pneumonia ? No fevers normal WBC, s/p 8d of dexamethasone; now on methlyprednisolone 40mg IV q12 hours x 6 days - baricitinib d#10/14 - CRP trending down, blood cultures x2 negative, low procalcitonin - oxygenation significantly improved placed on nasal cannula this a.m., wean oxygen as tolerated # question of PE - CTA with possible lobar filling deficit but could have been artifact; V/Q very low probability; BLE and BUE Dopplers negative - consider repeat CTA when more stable but in the meanwhile, cont. therapeutic-dose LMWH 1 mg/kg q12h # constipation resolved, continue stool softeners and as needed lactulose # BEAN - resolved, HCTZ discontinued # HTN - few high blood pressure readings otherwise stable follow BP and add low-dose antihypertensive # HLD - continue statin # MS - wheelchair-bound # sz disorder - continue carbamazepine, valproate, gabapentin, seizure precaution, no seizure-like activity noted # mood disorder - continue gabapentin, methylphenidate, and venlafaxine # VTE ppx - LMWH Quality Stroke Does the patient have a stroke diagnosis?: No VTE Prior VTE?: No VTE Risk Level:: Medical - moderate - high VTE Device Contraindication: Treatment Not Indicated VTE Drug Contraindication: N/A - Med Ordered
[2021-08-09] MEDS: Gabapentin 400 MG CAPSULE PO (20:32)
[2021-08-09] MEDS: Divalproex Sodium 250 MG TABLET.DR PO (20:32)
[2021-08-09] MEDS: Atorvastatin Calcium 40 MG TABLET PO (20:32)
[2021-08-10] MEDS: methylPREDNISolone Sod Succ 40 MG/ML VIAL IVPUSH ×2 (02:05→13:54)
[2021-08-10 02:42] VITALS: BP 138/84; PULSE 103; RESP 20; TEMP 36.3; O2SAT 99
[2021-08-10 07:51] VITALS: BP 134/83; PULSE 95; RESP 18; TEMP 36.2; O2SAT 100
[2021-08-10] MEDS: carBAMazepine ER 200 MG TAB.ER.12H 400 MG PO ×2 (10:06→21:02)
[2021-08-10] MEDS: Divalproex Sodium 500 MG TABLET.DR PO (10:08)
[2021-08-10] MEDS: Venlafaxine HCl ER 150 MG CAP.ER.24H PO (10:09)
[2021-08-10] MEDS: Docusate Sodium 100 MG CAPSULE 200 MG PO (10:09)
[2021-08-10] MEDS: Gabapentin 300 MG CAPSULE PO (10:09)
[2021-08-10] MEDS: 0.9 % Sodium Chloride Flush 3 ML SYRINGE IVFLUSH ×3 (10:10→21:04)
[2021-08-10] MEDS: Cholecalciferol (Vitamin D3) 25 MCG TABLET 125 MCG PO (10:10)
[2021-08-10] MEDS: Enoxaparin Sodium 80 MG/0.8 ML SYRINGE 70 MG SUBCUT ×2 (10:11→21:04)
[2021-08-10] MEDS: Chlorhexidine Gluc Oral Rinse 15 ML MOUTHWASH BUCCAL ×2 (10:11→21:03)
[2021-08-10 15:02] VITALS: BP 135/81; PULSE 101; RESP 20; TEMP 36.7; O2SAT 94
--- NOTE | 2021-08-10 15:07 | HO.PM.IMPN ---
Subjective Subjective Date of Service: 08/10/21 Interval History: Feeling better this morning, transitioned to nasal cannula currently on 8 L of oxygen finger oximetry 94%, denies shortness of breath no chest pain, no lightheadedness, dizziness, no other acute issues overnight, no fever, no chills. Review of Systems Review of Systems: Yes all other systems are reviewed and are negative Physical Exam Vital Signs: Vital Signs: Last Vital Signs Temp 98.0 F 08/10/21 15:02 Pulse 101 H 08/10/21 15:02 Resp 20 08/10/21 15:02 BP 135/81 08/10/21 15:02 Pulse Ox 94 08/10/21 15:02 BMI result Body Mass Index 26.1 Gen:? No respiratory distress awake alert times 3 Neck: supple,no jvd Lungs: clear to auscultation bilaterally Heart:? Regular rate rhythm, no murmurs Abd: soft, non-tender, non-distended Ext: no edema Skin: warm/well-perfused Neuro: alert and oriented x3, no focal findings Psych: appropriate affect Objective Data Active Medications Acetaminophen (Acetaminophen 325 Mg Tablet) 650 mg PO Q4H PRN PRN Reason: Pain, Mild (Pain Scale 1-3) Last Admin: 08/04/21 01:34 Dose: 650 mg Documented by: DEBBIE Atorvastatin Calcium (Atorvastatin Calcium 40 Mg Tablet) 40 mg PO BEDTIME [facility] Last Admin: 08/09/21 20:32 Dose: 40 mg Documented by: ROBERTA Baricitinib (Baricitinib 2 Mg Tablet) 4 mg PO DAILY [facility] Stop: 08/13/21 09:01 Last Admin: 08/10/21 10:10 Dose: 4 mg Documented by: GAVIN Calcium Carbonate (Calcium Carbonate 500 Mg Tablet) 1,000 mg PO BEDTIME [facility] Last Admin: 08/09/21 20:32 Dose: 1,000 mg Documented by: ROBERTA Carbamazepine (Carbamazepine Er 200 Mg Tab.Er.12h) 400 mg PO BID [facility] Last Admin: 08/10/21 10:06 Dose: 400 mg Documented by: GAVIN Chlorhexidine Gluconate (Chlorhexidine Gluc Oral Rinse 15 Ml Mouthwash) 15 ml BUCCAL BID [facility] Last Admin: 08/10/21 10:11 Dose: 15 ml Documented by: GAVIN Divalproex Sodium (Divalproex Sodium 250 Mg Tablet.) 250 mg PO BEDTIME [facility] Last Admin: 08/09/21 20:32 Dose: 250 mg Documented by: ROBERTA Divalproex Sodium (Divalproex Sodium 500 Mg Tablet.) 500 mg PO DAILY [facility] Last Admin: 08/10/21 10:08 Dose: 500 mg Documented by: GAVIN Docusate Sodium (Docusate Sodium 100 Mg Capsule) 200 mg PO DAILY [facility] Last Admin: 08/10/21 10:09 Dose: 200 mg Documented by: GAVIN Enoxaparin Sodium (Enoxaparin Sodium 80 Mg/0.8 Ml Syringe) 70 mg 1 mg/kg (70 mg) SUBCUT Q12H [facility] Last Admin: 08/10/21 10:11 Dose: 70 mg Documented by: GAVIN Gabapentin (Gabapentin 300 Mg Capsule) 300 mg PO DAILY [facility] Last Admin: 08/10/21 10:09 Dose: 300 mg Documented by: GAVIN Gabapentin (Gabapentin 400 Mg Capsule) 400 mg PO BEDTIME [facility] Last Admin: 08/09/21 20:32 Dose: 400 mg Documented by: ROBERTA Lactulose (Lactulose 20 Gm/30 Ml Solution) 10 gm PO DAILY PRN PRN Reason: Constipation Methylprednisolone Sodium Succinate (Methylprednisolone Sod Succ 40 Mg/Ml Vial) 40 mg IVPUSH Q12H [facility] Last Admin: 08/10/21 13:54 Dose: 40 mg Documented by: GAVIN Mycophenolate Sodium (Mycophenolate Sodium 180 Mg Tablet.) 360 mg PO BEDTIME [facility] Last Admin: 07/28/21 20:40 Dose: 360 mg Documented by: EDWARD Mycophenolate Sodium (Mycophenolate Sodium 180 Mg Tablet.) 720 mg PO DAILY [facility] Last Admin: 07/29/21 11:10 Dose: Not Given Documented by: BOYD Non-Admin Reason: on hold Ondansetron HCl (Ondansetron Hcl 4 Mg/2 Ml Vial) 4 mg IVPUSH Q8H PRN PRN Reason: Nausea and Vomiting Pharmacy Consult (Consult Rx Perform Med Rec) 1 each MISCELLANE ONCE PRN PRN Reason: Consult order Sodium Chloride (0.9 % Sodium Chloride Flush 3 Ml Syringe) 3 ml IVFLUSH QSHIFT [facility] Last Admin: 08/10/21 10:10 Dose: 3 ml Documented by: GAVIN Venlafaxine HCl (Venlafaxine Hcl Er 150 Mg Cap.Er.24h) 150 mg PO DAILY [facility] Last Admin: 08/10/21 10:09 Dose: 150 mg Documented by: GAVIN Vitamin D (Cholecalciferol (Vitamin D3) 25 Mcg Tablet) 125 mcg PO DAILY [facility] Last Admin: 08/10/21 10:10 Dose: 125 mcg Documented by: GAVIN Labs CBC & Chem 7: 08/09/21 07:46 08/09/21 07:46 Assessment and Plan (1) BEAN (acute kidney injury): Status: Acute (2) COVID-19: Status: Acute (3) Hypoxia: Status: Acute (4) Acute respiratory failure with hypoxia: Status: Acute Assessment and Plan: 71yo F with MS on mycophenolate admitted for hypoxia due to severe COVID-19 pneumonia # acute hypoxic respiratory failure due to severe COVID-19 pneumonia Making slow progress, oxygen requirement significantly improved high-flow discontinued and place on 8 L oxygen by nasal cannula ? No fevers normal WBC, s/p 8d of dexamethasone; now on methlyprednisolone 40mg IV q12 hours x 7 days - baricitinib d#11/ - CRP trending down, blood cultures x2 negative, low procalcitonin Will gradually wean oxygen as tolerated # question of PE - CTA with possible lobar filling deficit but could have been artifact; V/Q very low probability; BLE and BUE Dopplers negative - will repeat CTA when more stable but in the meanwhile, cont. therapeutic-dose LMWH 1 mg/kg q12h # constipation resolved, continue stool softeners and as needed lactulose # BEAN - resolved, HCTZ discontinued # HTN - stable follow BP and add low-dose antihypertensive # HLD - continue statin # MS - wheelchair-bound, has [employer] services for daytime, sleeps alone at night. # sz disorder - continue carbamazepine, valproate, gabapentin, seizure precaution, no seizure-like activity noted # mood disorder - continue gabapentin, methylphenidate, and venlafaxine # VTE ppx - LMWH Quality Stroke Does the patient have a stroke diagnosis?: No VTE Prior VTE?: No VTE Risk Level:: Medical - moderate - high VTE Device Contraindication: Treatment Not Indicated VTE Drug Contraindication: N/A - Med Ordered
[2021-08-10] MEDS: Lactulose 20 GM/30 ML SOLUTION 10 GM PO (18:20)
[2021-08-10 18:55] VITALS: BP 133/81; PULSE 106; RESP 20; TEMP 36.3; O2SAT 96
[2021-08-10] MEDS: Divalproex Sodium 250 MG TABLET.DR PO (21:02)
[2021-08-10] MEDS: Gabapentin 400 MG CAPSULE PO (21:02)
[2021-08-10] MEDS: Atorvastatin Calcium 40 MG TABLET PO (21:02)
[2021-08-10 23:38] VITALS: BP 123/81; PULSE 98; RESP 17; TEMP 36.8; O2SAT 97
[2021-08-11] MEDS: methylPREDNISolone Sod Succ 40 MG/ML VIAL IVPUSH ×2 (02:44→13:15)
[2021-08-11 04:00] VITALS: BP 150/83; PULSE 83; RESP 17; TEMP 37.2; O2SAT 91
[2021-08-11] MEDS: Cholecalciferol (Vitamin D3) 25 MCG TABLET 125 MCG PO (07:30)
[2021-08-11 07:31] VITALS: BP 144/76; PULSE 97; RESP 20; TEMP 36.1; O2SAT 96
[2021-08-11] MEDS: Gabapentin 300 MG CAPSULE PO (07:31)
[2021-08-11] MEDS: carBAMazepine ER 200 MG TAB.ER.12H 400 MG PO ×2 (07:31→21:03)
[2021-08-11] MEDS: Venlafaxine HCl ER 150 MG CAP.ER.24H PO (07:31)
[2021-08-11] MEDS: Divalproex Sodium 500 MG TABLET.DR PO (07:31)
[2021-08-11] MEDS: Docusate Sodium 100 MG CAPSULE 200 MG PO (07:31)
[2021-08-11] MEDS: Chlorhexidine Gluc Oral Rinse 15 ML MOUTHWASH BUCCAL ×2 (07:32→20:57)
[2021-08-11] MEDS: 0.9 % Sodium Chloride Flush 3 ML SYRINGE IVFLUSH ×2 (10:00→16:12)
[2021-08-11] MEDS: Enoxaparin Sodium 80 MG/0.8 ML SYRINGE 70 MG SUBCUT ×2 (10:00→20:57)
[2021-08-11 10:03] LABS: Hematocrit 34.1 % (37.0-47.0); Hemoglobin 10.8 g/dl (12.0-16.0); Mean Corpuscular HGB Conc 31.7 g/dl (31.0-35.0); Mean Corpuscular Hemoglobin 32.2 pg (27.0-33.0); Mean Corpuscular Volume 101.8 fL (80.0-98.0); Mean Platelet Volume 9.5 fL (9.4-12.3); Platelet Count 589 X10*3/uL (160-400); Red Blood Count 3.35 X10*6/uL (4.20-5.50); Red Cell Distribution Width 12.9 % (11.0-16.0); White Blood Count 10.1 X10*3/uL (4.8-10.8)
[2021-08-11 10:16] LABS: D Dimer High Sensitivity < 150 NG/ML
[2021-08-11 10:36] LABS: Anion Gap 12 (12-20); Blood Urea Nitrogen 27 mg/dL (9-16); C Reactive Protein 0.46 mg/dL (< or = 0.50); Calcium 10.1 mg/dL (8.4-10.2); Carbon Dioxide 33 mmol/L (22-29); Chloride 98 mmol/L (96-108); Estimated Glomerular Filt Rate > 60; Glucose Random 120 mg/dL (60-115); Potassium 5.1 mmol/L (3.3-5.1); Sodium 138 mmol/L (135-145)
[2021-08-11 10:56] LABS: Procalcitonin 0.02 ng/mL
--- NOTE | 2021-08-11 11:09 | HO.PM.IMPN ---
Subjective Subjective Date of Service: 08/11/21 Interval History: seen and examined this AM feels better denies sob/cough Review of Systems negative except HPI Physical Exam Vital Signs: Vital Signs: Last Vital Signs Temp 97.0 F 08/11/21 07:31 Pulse 97 08/11/21 07:31 Resp 20 08/11/21 07:31 BP 144/76 H 08/11/21 07:31 Pulse Ox 96 08/11/21 07:31 BMI result Body Mass Index 26.1 Const: Other: Gen:? No respiratory distress awake alert times 3 Neck: supple,no jvd Lungs: clear to auscultation bilaterally Heart:? Regular rate rhythm, no murmurs Abd: soft, non-tender, non-distended Ext: no edema Skin: warm/well-perfused Neuro: alert and oriented x3, no focal findings Psych: appropriate affect Objective Data Active Medications Acetaminophen (Acetaminophen 325 Mg Tablet) 650 mg PO Q4H PRN PRN Reason: Pain, Mild (Pain Scale 1-3) Last Admin: 08/04/21 01:34 Dose: 650 mg Documented by: DEBBIE Atorvastatin Calcium (Atorvastatin Calcium 40 Mg Tablet) 40 mg PO BEDTIME [facility] Last Admin: 08/10/21 21:02 Dose: 40 mg Documented by: RIMA Baricitinib (Baricitinib 2 Mg Tablet) 4 mg PO DAILY [facility] Stop: 08/13/21 09:01 Last Admin: 08/11/21 07:32 Dose: 4 mg Documented by: CLAUDIA Calcium Carbonate (Calcium Carbonate 500 Mg Tablet) 1,000 mg PO BEDTIME [facility] Last Admin: 08/10/21 21:03 Dose: 1,000 mg Documented by: RIMA Carbamazepine (Carbamazepine Er 200 Mg Tab.Er.12h) 400 mg PO BID [facility] Last Admin: 08/11/21 07:31 Dose: 400 mg Documented by: CLAUDIA Chlorhexidine Gluconate (Chlorhexidine Gluc Oral Rinse 15 Ml Mouthwash) 15 ml BUCCAL BID [facility] Last Admin: 08/11/21 07:32 Dose: 15 ml Documented by: CLAUDIA Divalproex Sodium (Divalproex Sodium 250 Mg Tablet.Dr) 250 mg PO BEDTIME [facility] Last Admin: 08/10/21 21:02 Dose: 250 mg Documented by: RIMA Divalproex Sodium (Divalproex Sodium 500 Mg Tablet.) 500 mg PO DAILY [facility] Last Admin: 08/11/21 07:31 Dose: 500 mg Documented by: CLAUDIA Docusate Sodium (Docusate Sodium 100 Mg Capsule) 200 mg PO DAILY [facility] Last Admin: 08/11/21 07:31 Dose: 200 mg Documented by: CLAUDIA Enoxaparin Sodium (Enoxaparin Sodium 80 Mg/0.8 Ml Syringe) 70 mg 1 mg/kg (70 mg) SUBCUT Q12H [facility] Last Admin: 08/11/21 10:00 Dose: 70 mg Documented by: CLAUDIA Gabapentin (Gabapentin 300 Mg Capsule) 300 mg PO DAILY [facility] Last Admin: 08/11/21 07:31 Dose: 300 mg Documented by: CLAUDIA Gabapentin (Gabapentin 400 Mg Capsule) 400 mg PO BEDTIME [facility] Last Admin: 08/10/21 21:02 Dose: 400 mg Documented by: RIMA Lactulose (Lactulose 20 Gm/30 Ml Solution) 10 gm PO DAILY PRN PRN Reason: Constipation Last Admin: 08/10/21 18:20 Dose: 10 gm Documented by: GAVIN Methylprednisolone Sodium Succinate (Methylprednisolone Sod Succ 40 Mg/Ml Vial) 40 mg IVPUSH Q12H [facility] Last Admin: 08/11/21 02:44 Dose: 40 mg Documented by: RIMA Mycophenolate Sodium (Mycophenolate Sodium 180 Mg Tablet.) 360 mg PO BEDTIME [facility] Last Admin: 07/28/21 20:40 Dose: 360 mg Documented by: EDWARD Mycophenolate Sodium (Mycophenolate Sodium 180 Mg Tablet.) 720 mg PO DAILY [facility] Last Admin: 07/29/21 11:10 Dose: Not Given Documented by: BOYD Non-Admin Reason: on hold Ondansetron HCl (Ondansetron Hcl 4 Mg/2 Ml Vial) 4 mg IVPUSH Q8H PRN PRN Reason: Nausea and Vomiting Pharmacy Consult (Consult Rx Perform Med Rec) 1 each MISCELLANE ONCE PRN PRN Reason: Consult order Sodium Chloride (0.9 % Sodium Chloride Flush 3 Ml Syringe) 3 ml IVFLUSH QSHIFT [facility] Last Admin: 08/11/21 10:00 Dose: 3 ml Documented by: CLAUDIA Venlafaxine HCl (Venlafaxine Hcl Er 150 Mg Cap.Er.24h) 150 mg PO DAILY [facility] Last Admin: 08/11/21 07:31 Dose: 150 mg Documented by: CLAUDIA Vitamin D (Cholecalciferol (Vitamin D3) 25 Mcg Tablet) 125 mcg PO DAILY [facility] Last Admin: 08/11/21 07:30 Dose: 125 mcg Documented by: CLAUDIA Labs CBC & Chem 7: 08/11/21 09:46 08/11/21 09:46 Labs: Laboratory Results - last 24 hr 08/11/21 08/11/21 08/11/21 09:46 09:46 09:46 MCV 101.8 H MCH 32.2 MCHC 31.7 RDW 12.9 Plt Count 589 H MPV 9.5 Absolute Nucleated RBC 0.000 Nucleated RBC % (auto) 0.0 D-Dimer High Sensitivty < 150 Anion Gap 12 Estim Creat Clear Calc 75.0 Estimated GFR > 60 Random Glucose 120 H Calcium 10.1 C-Reactive Protein 0.46 Procalcitonin 08/11/21 09:46 MCV MCH MCHC RDW Plt Count MPV Absolute Nucleated RBC Nucleated RBC % (auto) D-Dimer High Sensitivty Anion Gap Estim Creat Clear Calc Estimated GFR Random Glucose Calcium C-Reactive Protein Procalcitonin 0.02 Assessment and Plan (1) Acute respiratory failure with hypoxia: Status: Acute Assessment and Plan: 71yo F with MS on mycophenolate admitted for hypoxia due to severe COVID-19 pneumonia # acute hypoxic respiratory failure due to severe COVID-19 pneumonia Making slow progress - tolerating 6L [place] this AM No fevers normal WBC, s/p 8d of dexamethasone; now on methlyprednisolone 40mg IV q12 hours - day #3 On Baricitinib -- day 07/29 # question of PE CTA with possible lobar filling deficit but could have been artifact; V/Q very low probability; BLE and BUE Dopplers negative will repeat CTA when more stable but in the meanwhile, cont. 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 Myfortic on hold for now (d/w neuro previously) # sz disorder - continue carbamazepine, valproate, gabapentin, seizure precaution, no seizure-like activity noted # mood disorder - continue gabapentin, methylphenidate, and venlafaxine # VTE ppx - LMWH dispo: likely str Quality Stroke Does the patient have a stroke diagnosis?: No VTE Prior VTE?: No VTE Risk Level:: Medical - moderate - high VTE Device Contraindication: Treatment Not Indicated VTE Drug Contraindication: N/A - Med Ordered
[2021-08-11 11:17] VITALS: BP 147/89; PULSE 100; RESP 16; TEMP 35.9; O2SAT 100
--- NOTE | 2021-08-11 11:25 | MHC.CM.PN ---
Per ROUNDS discussion, Patient is not yet ready for dc (IV Solu Medrol, 8L O2). Home with 24/7 care vs LTC is the plan and CM will continue to follow.
[2021-08-11 15:04] VITALS: BP 135/88; PULSE 80; RESP 20; TEMP 36.3; O2SAT 98
[2021-08-11 19:48] VITALS: BP 107/73; PULSE 103; RESP 20; TEMP 36.4; O2SAT 99
[2021-08-11] MEDS: Atorvastatin Calcium 40 MG TABLET PO (20:57)
[2021-08-11] MEDS: Gabapentin 400 MG CAPSULE PO (20:57)
[2021-08-11] MEDS: Divalproex Sodium 250 MG TABLET.DR PO (20:57)
[2021-08-11 23:51] VITALS: BP 122/62; PULSE 98; RESP 18; TEMP 36.4; O2SAT 99
[2021-08-12] MEDS: 0.9 % Sodium Chloride Flush 3 ML SYRINGE IVFLUSH ×4 (00:21→20:35)
[2021-08-12] MEDS: methylPREDNISolone Sod Succ 40 MG/ML VIAL IVPUSH (02:21)
[2021-08-12 03:07] VITALS: BP 153/80; PULSE 96; RESP 18; TEMP 36.7; O2SAT 97
[2021-08-12 07:09] VITALS: BP 122/68; PULSE 88; RESP 18; TEMP 36; O2SAT 98
[2021-08-12] MEDS: Chlorhexidine Gluc Oral Rinse 15 ML MOUTHWASH BUCCAL ×2 (09:13→20:35)
[2021-08-12] MEDS: Divalproex Sodium 500 MG TABLET.DR PO (09:15)
[2021-08-12] MEDS: carBAMazepine ER 200 MG TAB.ER.12H 400 MG PO ×2 (09:15→20:34)
[2021-08-12] MEDS: Gabapentin 300 MG CAPSULE PO (09:15)
[2021-08-12] MEDS: Cholecalciferol (Vitamin D3) 25 MCG TABLET 125 MCG PO (09:15)
[2021-08-12] MEDS: Venlafaxine HCl ER 150 MG CAP.ER.24H PO (09:15)
[2021-08-12] MEDS: Enoxaparin Sodium 80 MG/0.8 ML SYRINGE 70 MG SUBCUT ×2 (09:15→20:34)
[2021-08-12] MEDS: Docusate Sodium 100 MG CAPSULE 200 MG PO (09:15)
[2021-08-12 09:21] VITALS: O2SAT 100
--- NOTE | 2021-08-12 09:52 | P.PNIM_ITS ---
Subjective Subjective Date of Service: 08/12/21 Interval History: seen and examined this AM reports feeling better day by day denies sob/cough Review of Systems negative except HPI Physical Exam Vital Signs: Vital Signs: Last Vital Signs Temp 96.8 F 08/12/21 07:09 Pulse 88 08/12/21 07:09 Resp 18 08/12/21 07:09 BP 122/68 08/12/21 07:09 Pulse Ox 100 08/12/21 09:21 BMI result Body Mass Index 26.1 Const: Other: Gen:? No respiratory distress awake alert times 3 Neck: supple,no jvd Lungs: clear to auscultation bilaterally Heart:? Regular rate rhythm, no murmurs Abd: soft, non-tender, non-distended Ext: no edema Skin: warm/well-perfused Neuro: alert and oriented x3, no focal findings Psych: appropriate affect Objective Data Active Medications Acetaminophen (Acetaminophen 325 Mg Tablet) 650 mg PO Q4H PRN PRN Reason: Pain, Mild (Pain Scale 1-3) Last Admin: 08/04/21 01:34 Dose: 650 mg Documented by: DEBBIE Atorvastatin Calcium (Atorvastatin Calcium 40 Mg Tablet) 40 mg PO BEDTIME [facility] Last Admin: 08/11/21 20:57 Dose: 40 mg Documented by: KERA Baricitinib (Baricitinib 2 Mg Tablet) 4 mg PO DAILY [facility] Stop: 08/13/21 09:01 Last Admin: 08/12/21 09:13 Dose: 4 mg Documented by: VALENCIA Calcium Carbonate (Calcium Carbonate 500 Mg Tablet) 1,000 mg PO BEDTIME [facility] Last Admin: 08/11/21 21:03 Dose: 1,000 mg Documented by: KERA Carbamazepine (Carbamazepine Er 200 Mg Tab.Er.12h) 400 mg PO BID [facility] Last Admin: 08/12/21 09:15 Dose: 400 mg Documented by: VALENCIA Chlorhexidine Gluconate (Chlorhexidine Gluc Oral Rinse 15 Ml Mouthwash) 15 ml BUCCAL BID [facility] Last Admin: 08/12/21 09:13 Dose: 15 ml Documented by: VALENCIA Divalproex Sodium (Divalproex Sodium 250 Mg Tablet.Dr) 250 mg PO BEDTIME [facility] Last Admin: 08/11/21 20:57 Dose: 250 mg Documented by: KERA Divalproex Sodium (Divalproex Sodium 500 Mg Tablet.) 500 mg PO DAILY [facility] Last Admin: 08/12/21 09:15 Dose: 500 mg Documented by: VALENCIA Docusate Sodium (Docusate Sodium 100 Mg Capsule) 200 mg PO DAILY [facility] Last Admin: 08/12/21 09:15 Dose: 200 mg Documented by: VALENCIA Enoxaparin Sodium (Enoxaparin Sodium 80 Mg/0.8 Ml Syringe) 70 mg 1 mg/kg (70 mg) SUBCUT Q12H [facility] Last Admin: 08/12/21 09:15 Dose: 70 mg Documented by: VALENCIA Gabapentin (Gabapentin 300 Mg Capsule) 300 mg PO DAILY [facility] Last Admin: 08/12/21 09:15 Dose: 300 mg Documented by: VALENCIA Gabapentin (Gabapentin 400 Mg Capsule) 400 mg PO BEDTIME [facility] Last Admin: 08/11/21 20:57 Dose: 400 mg Documented by: KERA Lactulose (Lactulose 20 Gm/30 Ml Solution) 10 gm PO DAILY PRN PRN Reason: Constipation Last Admin: 08/10/21 18:20 Dose: 10 gm Documented by: GAVIN Methylprednisolone Sodium Succinate (Methylprednisolone Sod Succ 40 Mg/Ml Vial) 40 mg IVPUSH Q12H [facility] Last Admin: 08/12/21 02:21 Dose: 40 mg Documented by: RIMA Mycophenolate Sodium (Mycophenolate Sodium 180 Mg Tablet.) 360 mg PO BEDTIME [facility] Last Admin: 07/28/21 20:40 Dose: 360 mg Documented by: EDWARD Mycophenolate Sodium (Mycophenolate Sodium 180 Mg Tablet.) 720 mg PO DAILY [facility] Last Admin: 07/29/21 11:10 Dose: Not Given Documented by: BOYD Non-Admin Reason: on hold Ondansetron HCl (Ondansetron Hcl 4 Mg/2 Ml Vial) 4 mg IVPUSH Q8H PRN PRN Reason: Nausea and Vomiting Pharmacy Consult (Consult Rx Perform Med Rec) 1 each MISCELLANE ONCE PRN PRN Reason: Consult order Sodium Chloride (0.9 % Sodium Chloride Flush 3 Ml Syringe) 3 ml IVFLUSH QSHIFT [facility] Last Admin: 08/12/21 09:13 Dose: 3 ml Documented by: VALENCIA Venlafaxine HCl (Venlafaxine Hcl Er 150 Mg Cap.Er.24h) 150 mg PO DAILY [facility] Last Admin: 08/12/21 09:15 Dose: 150 mg Documented by: VALENCIA Vitamin D (Cholecalciferol (Vitamin D3) 25 Mcg Tablet) 125 mcg PO DAILY [facility] Last Admin: 08/12/21 09:15 Dose: 125 mcg Documented by: VALENCIA Labs CBC & Chem 7: 08/11/21 09:46 08/11/21 09:46 Labs: Laboratory Results - last 24 hr 08/11/21 08/11/21 08/11/21 09:46 09:46 09:46 MCV 101.8 H MCH 32.2 MCHC 31.7 RDW 12.9 Plt Count 589 H MPV 9.5 Absolute Nucleated RBC 0.000 Nucleated RBC % (auto) 0.0 D-Dimer High Sensitivty < 150 Anion Gap 12 Estim Creat Clear Calc 75.0 Estimated GFR > 60 Random Glucose 120 H Calcium 10.1 C-Reactive Protein 0.46 Procalcitonin 08/11/21 09:46 MCV MCH MCHC RDW Plt Count MPV Absolute Nucleated RBC Nucleated RBC % (auto) D-Dimer High Sensitivty Anion Gap Estim Creat Clear Calc Estimated GFR Random Glucose Calcium C-Reactive Protein Procalcitonin 0.02 Assessment and Plan (1) Acute respiratory failure with hypoxia: Status: Acute Assessment and Plan: 71yo F with MS on mycophenolate admitted for hypoxia due to severe COVID-19 pneumonia # acute hypoxic respiratory failure due to severe COVID-19 pneumonia Making slow progress - tolerating 2L by [place] this AM No fevers normal WBC, s/p 8d of dexamethasone; day 3 of solu-medrol; change to prednisone starting tomorrow On Baricitinib -- day 13 # question of PE CTA with possible lobar filling deficit but could have been artifact; V/Q very low probability; BLE and BUE Dopplers negative repeat CTA today #constipation resolved continue stool softeners and as needed lactulose #BEAN resolved, HCTZ discontinued #HTN stable follow BP and add low-dose antihypertensive #HLD continue statin #MS wheelchair-bound, 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 Myfortic on hold for now (d/w neuro previously) # sz disorder - continue carbamazepine, valproate, gabapentin, seizure precaution, no seizure- like activity noted # mood disorder - continue gabapentin, methylphenidate, and venlafaxine # VTE ppx - LMWH dispo: 08/03 care vs LTC -- likely next 24 to 48 hours Quality Stroke Does the patient have a stroke diagnosis?: No VTE Prior VTE?: No VTE Risk Level:: Medical - moderate - high VTE Device Contraindication: Treatment Not Indicated VTE Drug Contraindication: N/A - Med Ordered
[2021-08-12 12:00] VITALS: O2SAT 96
[2021-08-12] MEDS: iohexoL 350 MG/ML 100 ML INFUS..BTL IV (14:36)
[2021-08-12 16:00] VITALS: BP 116/77; PULSE 87; RESP 18; TEMP 36.4; O2SAT 93
[2021-08-12 20:00] VITALS: BP 116/68; PULSE 98; RESP 18; TEMP 36.7; O2SAT 93
[2021-08-12] MEDS: Gabapentin 400 MG CAPSULE PO (20:34)
[2021-08-12] MEDS: Atorvastatin Calcium 40 MG TABLET PO (20:34)
[2021-08-12] MEDS: Divalproex Sodium 250 MG TABLET.DR PO (20:34)
[2021-08-13] VITALS: BP 131/69; PULSE 101; RESP 18; TEMP 36.8; O2SAT 96
[2021-08-13 03:46] VITALS: BP 105/61; PULSE 103; RESP 20; TEMP 36.8; O2SAT 93
[2021-08-13 07:44] VITALS: BP 117/67; PULSE 96; RESP 18; TEMP 36.7; O2SAT 98
[2021-08-13] MEDS: Mycophenolate Sodium 180 MG TABLET.DR 360 MG PO (09:37)
[2021-08-13] MEDS: predniSONE 20 MG TABLET 40 MG PO (09:37)
[2021-08-13] MEDS: Docusate Sodium 100 MG CAPSULE 200 MG PO (09:38)
[2021-08-13] MEDS: carBAMazepine ER 200 MG TAB.ER.12H 400 MG PO (09:39)
[2021-08-13] MEDS: Venlafaxine HCl ER 150 MG CAP.ER.24H PO (09:39)
[2021-08-13] MEDS: Divalproex Sodium 500 MG TABLET.DR PO (09:39)
[2021-08-13] MEDS: Cholecalciferol (Vitamin D3) 25 MCG TABLET 125 MCG PO (09:39)
[2021-08-13] MEDS: Gabapentin 300 MG CAPSULE PO (09:39)
[2021-08-13] MEDS: 0.9 % Sodium Chloride Flush 3 ML SYRINGE IVFLUSH (09:40)
[2021-08-13] MEDS: Mycophenolate Sodium 180 MG TABLET.DR 720 MG PO (09:49)
[2021-08-13] MEDS: Chlorhexidine Gluc Oral Rinse 15 ML MOUTHWASH BUCCAL (09:51)
--- NOTE | 2021-08-13 11:06 | PM.DS ---
DS: Providers Provider Date of Service: 08/13/21 Date of admission: 07/27/21 10:24 Date of discharge: 08/13/21 Primary care physician: Andrew Altman MD Consults: 07/27/21 11:56 Consult to Infectious Diseases Routine Consulting Provider: Anny Smith Reason for consultation: covid Has provider been notified: No DS: Diagnosis Discharge Diagnosis (1) Pneumonia due to COVID-19 virus: Status: Acute (2) Acute respiratory failure with hypoxia: Status: Acute (3) BEAN (acute kidney injury): Status: Acute (4) Multiple sclerosis: Status: Acute DS: Summary Hospital Course Hospital Course: HPI from admission H&P: 71-year-old woman with history of dementia presented from home 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 Apparently patient tested positive for COVID-19 1 week ago.? Initially the plan was to send patient to short-term rehab however after a day of care she was found to be hypoxic at 86% and increased work of breathing.? Chest x-ray showed no infiltrates bilaterally consistent with COVID-19 she was placed on 4 L of oxygen and given IV Decadron.? She denied chest pain, shortness of breath, nausea, vomiting, diarrhea, fever, chills.? She will be admitted for further management and treatment of acute hypoxic respiratory failure secondary to COVID-19. Hospital Course: Patient was admitted for acute hypoxic resp failure secondary to COVID 19 pneumonia. She was treated with supplemental oxygen (required high flow oxygen), IV decadron initially and subsequently high dose solu-medrol, remdesivir and baricitinib. She had a prolonged hospitalization but has been susccessfully weaned to Room air. She has completed her course of remdesivir and baricitinib. Her high dose steroids have been weaned to oral Prednisone 40mg daily and she will be discharged on a prednisone taper (40mg x 4 days, 30mx 4 days, 20mg x 4 days, 10mg x 4 days). She is to resume her usual medications. Her hospital course was complicated by BEAN which was deemded secondary to hypovoluemia from HCTZ. Her BEAN has resolved and her BP has rebounding. She will continue her HCTZ as usual. She should have routine monitoring of her renal function. Furthermore, there was a question of pulmonary embolism on her initial CTA chest. She was temporarily treated with therapeurtic lovenox but after repeat CTA was negative, this was discontinued. Lastly, her Mycophenelate was held (due to severe covid) but will now be restarted as her severe covid has resolved. Time Spent with Patient Time attestation: Total time spent providing and/or coordinating discharge services: Discharge coordination time: Greater than 30 minutes Quality: Stroke Does the patient have a stroke diagnosis?: No Physical Exam Vital Signs: Vital Signs: Last Vital Signs Temp 98.1 F 08/13/21 07:44 Pulse 96 08/13/21 07:44 Resp 18 08/13/21 07:44 BP 117/67 08/13/21 07:44 Pulse Ox 98 08/13/21 07:44 BMI result Body Mass Index 26.1 Const: Other: General - no acute distress, appears comfortable Cardiovascular - regular rate and rhythm, S1-S2 Lungs - normal respiratory effort, clear to auscultation bilaterally, no wheezing Abdomen - soft, nontender, no rebound or guarding Extremities - no edema bilaterally Neuro - awake and alert, no focal deficits Discharge Plan Discharge Patient Disposition: Xfer SNF Discharge Diagnosis: COVID 19 Pneumonia causing resp failure with hypoxia Referrals: Andrew Altman MD [Primary Care Provider] - 1 Week Discharge Medications: New prednisone 10 mg tablet See Taper mg PO DAILY Qty: 40 RF: 0 Continued atorvastatin 40 mg Tablet 40 mg PO BEDTIME RF: 0 divalproex [Depakote] 250 mg Tablet,Delayed Release (Dr/Ec) 500 mg PO DAILY RF: 0 divalproex [Depakote] 250 mg Tablet,Delayed Release (Dr/Ec) 250 mg PO BEDTIME RF: 0 gabapentin 400 mg Capsule 400 mg PO BEDTIME RF: 0 carbamazepine [Tegretol XR] 400 mg Tablet Extended Release 12 Hr 400 mg PO BID RF: 0 calcium carbonate 500 mg calcium (1,250 mg) Tablet 1,000 mg PO BEDTIME RF: 0 gabapentin 300 mg Capsule 300 mg PO DAILY RF: 0 ibuprofen 600 mg Tablet 600 mg PO DAILY PRN (Reason: Pain) RF: 0 acetaminophen 500 mg Capsule 1,000 mg PO BID PRN (Reason: Pain) RF: 0 methylphenidate HCl [Concerta] 36 mg Tablet Extended Release 24hr 36 mg PO DAILY RF: 0 mycophenolate sodium [Myfortic] 360 mg Tablet,Delayed Release (Dr/Ec) 360 mg PO BEDTIME RF: 0 mycophenolate sodium [Myfortic] 360 mg Tablet,Delayed Release (Dr/Ec) 720 mg PO DAILY RF: 0 chlorhexidine gluconate [Peridex] 0.12 % Mouthwash 15 ml BUCCAL BID RF: 0 hydrochlorothiazide 12.5 mg Tablet 12.5 mg PO DAILY RF: 0 venlafaxine 150 mg Tablet Extended Release 24hr 150 mg PO DAILY RF: 0 cholecalciferol (vitamin D3) [Vitamin D3] 125 mcg (5,000 unit) Tablet 125 mcg PO DAILY RF: 0 Prolia 60 mg/mL Syringe 60 mg SUBCUT [id number] RF: 0 Vitron-C 65 mg iron- 125 mg Tablet,Delayed Release (Dr/Ec) 1 tab PO DAILY RF: 0 Discharge Orders: Discharge Order (Routine); Ordered 08/13/21 Ordered By: Rick Bernstein Diet: advance to usual diet Activity on Discharge: As tolerated Stand Alone Forms: Patient Portal Discharge page Care Plan Goals: To stay healthy and out of the hospital. Health Concerns: COVID 19 Plan of Treatment: Finish prednisone taper as prescribed Assessment: see hospital course as above
[2021-08-13 11:29] VITALS: BP 126/67; PULSE 94; RESP 19; TEMP 36.8; O2SAT 96
[2021-08-13 11:50] VITALS: BP 126/67; PULSE 94; O2SAT 96
[2021-08-13 12:40] LABS: COVID-19 Test Negative (Negative)
--- NOTE | 2021-08-13 14:02 | MHC.CM.PN ---
Patient has been medically cleared for dc to [facility] today. Patient will dc to her first choice SNF[facility] today at 4:30 PM, via [facility] .Patient and Cousin/HCP/PRODUCTION FINISHER/Andrew @ [phone] are aware of and in agreement with the dc plan. IMM addressed and the original will be mailed certified letter to Andrew and a copy has been placed on the chart.
== END 2021-08-13 17:21 | disposition skilled nursing facility (03) | DRG 177 ==
LOC: HO.ED 07-27 08:49 → HO.EDOVER 07-27 10:29 → HO.IMC 07-28 15:08
PROVIDERS: Family Medicine; Hospitalist; Internal Medicine; Physician Assistant; Admitting Provider Nurse Practitioner Acute Care; Emergency Provider Internal Medicine; PCP Internal Medicine Rheumatology; Visit Provider Family Medicine
DX: U07.1 COVID-19 (principal); I26.99 Other pulmonary embolism without acute cor pulmonale; J96.01 Acute respiratory failure with hypoxia; J12.82 Pneumonia due to coronavirus disease 2019; N17.9 Acute kidney failure, unspecified; I10 Essential (primary) hypertension; F03.90 Unspecified dementia, unspecified severity, without behavioral disturbance, psychotic disturbance, mood disturbance, and anxiety; G35 Multiple sclerosis; K59.00 Constipation, unspecified; G40.909 Epilepsy, unspecified, not intractable, without status epilepticus; E78.5 Hyperlipidemia, unspecified; F32.A Depression, unspecified; F41.9 Anxiety disorder, unspecified; Z79.1 Long term (current) use of non-steroidal anti-inflammatories (NSAID); Z79.899 Other long term (current) drug therapy
CPT/HCPCS: 36415; 71045; 71275; 78580; 80048; 80053; 80076; 80202; 81003; 82728; 82803; 83605; 83615; 83735; 84145; 85025; 85027; 85379; 85610; 85730; 86140; 87040; 87635; 93970; 96361; 96374; 97162; 97163; 99285; A9540; J1100; J1650; J2543; J2920; J3370; Q9967

== ENCOUNTER 2021-08-14 06:44 | Outpatient (REF) | payer OTHER, SELFPAY ==
[2021-08-14 06:49] LABS: MANUAL DIFF FLAG NO
[2021-08-14 07:00] LABS: Basophils Percent Auto 0.2 % (0-2); Eosinophils Absolute Auto 0.1 X10*3/uL (0.0-0.4); Hematocrit 27.4 % (37.0-47.0); Hemoglobin 8.8 g/dl (12.0-16.0); Imm Gran Abs Auto 0.09 X10*3/uL (0.00-0.03); Imm Gran Pct Auto 1.4 % (0.0-0.4); Lymphocytes Absolute Auto 1.9 X10*3/uL (1.2-4.9); Lymphocytes Percent Auto 29.7 % (20-40); Mean Corpuscular HGB Conc 32.1 g/dl (31.0-35.0); Mean Corpuscular Hemoglobin 32.2 pg (27.0-33.0); Mean Corpuscular Volume 100.4 fL (80.0-98.0); Mean Platelet Volume 9.5 fL (9.4-12.3); Monocytes Absolute Auto 0.5 X10*3/uL (0.1-1.2); Monocytes Percent Auto 7.8 % (2-11); Neutrophils Absolute Auto 3.8 x10*3/uL (2.0-8.3); Neutrophils Percent Auto 59.9 % (45-73); Platelet Count 400 X10*3/uL (160-400); Red Blood Count 2.73 X10*6/uL (4.20-5.50); Red Cell Distribution Width 13.2 % (11.0-16.0); White Blood Count 6.3 X10*3/uL (4.8-10.8)
[2021-08-14 07:26] LABS: Alanine Aminotransferase 21 U/L (0-31); Albumin Level 2.8 g/dL (3.5-5.0); Alkaline Phosphatase 38 U/L (39-117); Anion Gap 9 (12-20); Aspartate Amino Transferase 12 U/L (5-31); Bilirubin Total 0.2 mg/dL (0.0-1.0); Blood Urea Nitrogen 20 mg/dL (9-16); Calcium 8.9 mg/dL (8.4-10.2); Carbon Dioxide 32 mmol/L (22-29); Chloride 102 mmol/L (96-108); Estimated Glomerular Filt Rate > 60; Glucose Fasting 81 mg/dL (60-99); Potassium 4.6 mmol/L (3.3-5.1); Sodium 138 mmol/L (135-145); Total Protein 4.5 g/dL (6.5-8.0)
== END 2021-08-14 06:45 | disposition home or self-care (01) ==
LOC: HO.MMNH1L 06:44
PROVIDERS: Visit Provider Family Medicine
DX: G35 Multiple sclerosis (principal); E78.5 Hyperlipidemia, unspecified; R09.02 Hypoxemia
CPT/HCPCS: 36415; 80053; 85025

== ENCOUNTER 2021-08-18 00:17 | Outpatient (REF) | payer OTHER, SELFPAY ==
[2021-08-18 07:13] LABS: Hematocrit 26.7 % (37.0-47.0); Hemoglobin 8.3 g/dl (12.0-16.0); Mean Corpuscular HGB Conc 31.1 g/dl (31.0-35.0); Mean Corpuscular Hemoglobin 31.7 pg (27.0-33.0); Mean Corpuscular Volume 101.9 fL (80.0-98.0); Mean Platelet Volume 9.9 fL (9.4-12.3); Platelet Count 271 X10*3/uL (160-400); Red Blood Count 2.62 X10*6/uL (4.20-5.50); Red Cell Distribution Width 13.9 % (11.0-16.0); White Blood Count 7.3 X10*3/uL (4.8-10.8)
[2021-08-18 08:03] LABS: Anion Gap 12 (12-20); Blood Urea Nitrogen 26 mg/dL (9-16); Calcium 8.5 mg/dL (8.4-10.2); Carbon Dioxide 29 mmol/L (22-29); Chloride 103 mmol/L (96-108); Estimated Glomerular Filt Rate > 60; Glucose Random 85 mg/dL (60-115); Sodium 140 mmol/L (135-145)
== END 2021-08-18 00:18 | disposition home or self-care (01) ==
LOC: HO.MMNH1L 00:17
PROVIDERS: Visit Provider Family Medicine
DX: G35 Multiple sclerosis (principal); E78.5 Hyperlipidemia, unspecified; R09.02 Hypoxemia
CPT/HCPCS: 36415; 80048; 85027

== ENCOUNTER 2021-08-25 00:54 | Outpatient (REF) | payer OTHER, SELFPAY ==
[2021-08-25 07:43] LABS: Alanine Aminotransferase 17 U/L (0-31); Albumin Level 2.8 g/dL (3.5-5.0); Alkaline Phosphatase 41 U/L (39-117); Anion Gap 12 (12-20); Aspartate Amino Transferase 10 U/L (5-31); Bilirubin Total < 0.2 mg/dL (0.0-1.0); Blood Urea Nitrogen 20 mg/dL (9-16); Calcium 8.6 mg/dL (8.4-10.2); Carbon Dioxide 29 mmol/L (22-29); Chloride 101 mmol/L (96-108); Estimated Glomerular Filt Rate > 60; Glucose Random 75 mg/dL (60-115); Potassium 3.9 mmol/L (3.3-5.1); Sodium 138 mmol/L (135-145); Total Protein 4.6 g/dL (6.5-8.0)
[2021-08-25 07:50] LABS: Hematocrit 26.9 % (37.0-47.0); Hemoglobin 8.3 g/dl (12.0-16.0); Mean Corpuscular HGB Conc 30.9 g/dl (31.0-35.0); Mean Corpuscular Hemoglobin 31.7 pg (27.0-33.0); Mean Corpuscular Volume 102.7 fL (80.0-98.0); Mean Platelet Volume 9.8 fL (9.4-12.3); Red Blood Count 2.62 X10*6/uL (4.20-5.50); Red Cell Distribution Width 15.6 % (11.0-16.0); White Blood Count 7.1 X10*3/uL (4.8-10.8)
[2021-08-25 07:59] LABS: Platelet Count 179 X10*3/uL (160-400)
== END 2021-08-25 00:55 | disposition home or self-care (01) ==
LOC: HO.MMNH1L 00:54
PROVIDERS: Visit Provider Family Medicine
DX: E78.5 Hyperlipidemia, unspecified (principal); G35 Multiple sclerosis; R09.02 Hypoxemia
CPT/HCPCS: 36415; 80053; 85027

== ENCOUNTER 2021-08-28 17:05 | Outpatient (REF) | payer OTHER, SELFPAY ==
[2021-08-28 17:27] LABS: Appearance Urine CLOUDY; Color Urine YELLOW; Glucose Urine UA NEG (NEG); Leukocyte Esterase Urine 3+ (NEG); Nitrite Urine NEG (NEG); PH 6.5 (5.0-8.0); Urine Blood NEG (NEG); Urine Ketones NEG (NEG); Urine Protein NEG (NEG-TRACE)
[2021-08-28 17:41] LABS: Bacteria Urine 3+ /LPF; Squamous Epithelial Cell Urine TRACE /LPF
== END 2021-08-28 17:06 | disposition home or self-care (01) ==
LOC: HO.MMNH1L 17:05
PROVIDERS: Visit Provider Family Medicine
DX: R30.0 Dysuria (principal)
CPT/HCPCS: 81001; 87086; 87088; 87186

== ENCOUNTER 2021-09-01 | Outpatient (REF) | payer OTHER, SELFPAY ==
[2021-09-01 07:54] LABS: Hematocrit 27.4 % (37.0-47.0); Hemoglobin 8.3 g/dl (12.0-16.0); Mean Corpuscular HGB Conc 30.3 g/dl (31.0-35.0); Mean Corpuscular Hemoglobin 31.8 pg (27.0-33.0); Mean Platelet Volume 9.5 fL (9.4-12.3); Platelet Count 301 X10*3/uL (160-400); Red Blood Count 2.61 X10*6/uL (4.20-5.50); Red Cell Distribution Width 15.5 % (11.0-16.0); White Blood Count 8.7 X10*3/uL (4.8-10.8)
[2021-09-01 08:23] LABS: Alanine Aminotransferase 11 U/L (0-31); Albumin Level 2.9 g/dL (3.5-5.0); Alkaline Phosphatase 43 U/L (39-117); Anion Gap 13 (12-20); Aspartate Amino Transferase 10 U/L (5-31); Bilirubin Total 0.2 mg/dL (0.0-1.0); Blood Urea Nitrogen 17 mg/dL (9-16); Calcium 8.5 mg/dL (8.4-10.2); Carbon Dioxide 28 mmol/L (22-29); Chloride 103 mmol/L (96-108); Estimated Glomerular Filt Rate > 60; Glucose Random 72 mg/dL (60-115); Potassium 4.2 mmol/L (3.3-5.1); Sodium 140 mmol/L (135-145); Total Protein 4.7 g/dL (6.5-8.0)
== END 2021-09-01 00:01 | disposition home or self-care (01) ==
LOC: HO.MMNH1L
PROVIDERS: Visit Provider Family Medicine
DX: G35 Multiple sclerosis (principal); E78.5 Hyperlipidemia, unspecified; R09.02 Hypoxemia
CPT/HCPCS: 36415; 80053; 85027

== ENCOUNTER 2021-09-08 01:09 | Outpatient (REF) | payer OTHER, SELFPAY ==
[2021-09-08 06:57] LABS: Hematocrit 27.1 % (37.0-47.0); Hemoglobin 8.5 g/dl (12.0-16.0); Mean Corpuscular HGB Conc 31.4 g/dl (31.0-35.0); Mean Corpuscular Hemoglobin 32.1 pg (27.0-33.0); Mean Corpuscular Volume 102.3 fL (80.0-98.0); Mean Platelet Volume 9.3 fL (9.4-12.3); Platelet Count 374 X10*3/uL (160-400); Red Blood Count 2.65 X10*6/uL (4.20-5.50); Red Cell Distribution Width 14.6 % (11.0-16.0); White Blood Count 5.5 X10*3/uL (4.8-10.8)
[2021-09-08 07:43] LABS: Alanine Aminotransferase 17 U/L (0-31); Albumin Level 2.8 g/dL (3.5-5.0); Alkaline Phosphatase 50 U/L (39-117); Anion Gap 14 (12-20); Aspartate Amino Transferase 15 U/L (5-31); Bilirubin Total < 0.2 mg/dL (0.0-1.0); Blood Urea Nitrogen 20 mg/dL (9-16); Calcium 8.5 mg/dL (8.4-10.2); Carbon Dioxide 29 mmol/L (22-29); Chloride 99 mmol/L (96-108); Estimated Glomerular Filt Rate > 60; Glucose Random 94 mg/dL (60-115); Potassium 3.5 mmol/L (3.3-5.1); Sodium 138 mmol/L (135-145); Total Protein 4.7 g/dL (6.5-8.0)
== END 2021-09-08 01:10 | disposition home or self-care (01) ==
LOC: HO.MMNH1L 01:09
PROVIDERS: Visit Provider Family Medicine
DX: G35 Multiple sclerosis (principal); E78.5 Hyperlipidemia, unspecified; R09.02 Hypoxemia
CPT/HCPCS: 36415; 80053; 85027

== ENCOUNTER 2021-09-15 00:46 | Outpatient (REF) | payer OTHER, SELFPAY ==
[2021-09-15 08:16] LABS: Hematocrit 30.2 % (37.0-47.0); Hemoglobin 9.1 g/dl (12.0-16.0); Mean Corpuscular HGB Conc 30.1 g/dl (31.0-35.0); Mean Corpuscular Volume 102.7 fL (80.0-98.0); Mean Platelet Volume 9.4 fL (9.4-12.3); Platelet Count 364 X10*3/uL (160-400); Red Blood Count 2.94 X10*6/uL (4.20-5.50); Red Cell Distribution Width 15.1 % (11.0-16.0); White Blood Count 6.6 X10*3/uL (4.8-10.8)
[2021-09-15 08:30] LABS: Alanine Aminotransferase 10 U/L (0-31); Albumin Level 2.8 g/dL (3.5-5.0); Alkaline Phosphatase 38 U/L (39-117); Anion Gap 11 (12-20); Aspartate Amino Transferase 12 U/L (5-31); Bilirubin Total 0.2 mg/dL (0.0-1.0); Blood Urea Nitrogen 16 mg/dL (9-16); Calcium 8.5 mg/dL (8.4-10.2); Carbon Dioxide 30 mmol/L (22-29); Chloride 103 mmol/L (96-108); Estimated Glomerular Filt Rate > 60; Glucose Random 75 mg/dL (60-115); Potassium 4.2 mmol/L (3.3-5.1); Sodium 140 mmol/L (135-145); Total Protein 4.6 g/dL (6.5-8.0)
== END 2021-09-15 00:47 | disposition home or self-care (01) ==
LOC: HO.MMNH1L 00:46
PROVIDERS: Visit Provider Family Medicine
DX: G35 Multiple sclerosis (principal); E78.5 Hyperlipidemia, unspecified; R09.02 Hypoxemia
CPT/HCPCS: 36415; 80053; 85027

== ENCOUNTER 2023-08-15 02:10 | Emergency (ER) | payer OTHER, SELFPAY ==
--- NOTE | ~2023-08-15 | CT_ITS ---
EXAMINATION: CT HEAD WITHOUT CONTRAST CT CERVICAL SPINE WITHOUT CONTRAT CT FACIAL BONES WITHOUT CONTRAST CLINICAL INFORMATION: Fall. Pain. COMPARISON: Correlation made with CT chest performed 07/31/2021 which included a portion of the lower cervical spine. TECHNIQUE: Contiguous axial imaging was performed through the head, facial bones and cervical spine without intravenous administration of contrast. Sagittal and coronal reformatted images also obtained. This CT examination was performed using dose optimization techniques as appropriate, variously including the following: *Automated exposure control *Adjustment of mA and/or kV according to patient size (this includes techniques or standardized protocols for targeted exams where dose is matched to indication/reason for exam; i.e. extremities or head) *Use of iterative reconstruction technique DLP: 1030+310. mGy-cm FINDINGS: The lateral, third and fourth ventricles are normally outlined. The cortical sulci and basal cisterns are normally outlined as well. There is mild bilateral periventricular and central white matter diminished attenuation. There is no acute territorial defect, hemorrhage or midline shift. The extra-axial spaces are unremarkable. Calvarium: Intact. Facial bones: No fracture is seen. There is mucosal thickening of the maxillary sinuses. The remaining maxillofacial sinuses and mastoids are clear. The soft tissues are unremarkable. Cervical spine: There is reversal of the expected cervical spine curvature. There is moderate C5-C6 and C6-C7 disc degenerative change and mild disc degenerative change throughout the remaining cervical spine with loss of disc space, endplate change and C5-C6 and C6-C7 posterior osteophytes associated with diffuse facet osteoarthritic hypertrophic change with mild C5-C6 spinal canal narrowing and multilevel [id number] neuroforaminal narrowing. The bony structures are heterogeneous/osteopenic. There is no cervical fracture. There is a chronic fracture of the spinous process of T2. Soft tissues are unremarkable. The upper lung machado are clear. CT/CT head/brain wo IV con IMPRESSION: 1. No acute intracranial pathology. Mild chronic white matter microangiopathy. 2. No acute facial bone fracture. 3. No acute cervical spine fracture or malalignment. Multilevel degenerative changes of the cervical spine.
--- NOTE | ~2023-08-15 | CT_ITS ---
EXAMINATION: CT HEAD WITHOUT CONTRAST CT CERVICAL SPINE WITHOUT CONTRAT CT FACIAL BONES WITHOUT CONTRAST CLINICAL INFORMATION: Fall. Pain. COMPARISON: Correlation made with CT chest performed 07/31/2021 which included a portion of the lower cervical spine. TECHNIQUE: Contiguous axial imaging was performed through the head, facial bones and cervical spine without intravenous administration of contrast. Sagittal and coronal reformatted images also obtained. This CT examination was performed using dose optimization techniques as appropriate, variously including the following: *Automated exposure control *Adjustment of mA and/or kV according to patient size (this includes techniques or standardized protocols for targeted exams where dose is matched to indication/reason for exam; i.e. extremities or head) *Use of iterative reconstruction technique DLP: 1030+310. mGy-cm FINDINGS: The lateral, third and fourth ventricles are normally outlined. The cortical sulci and basal cisterns are normally outlined as well. There is mild bilateral periventricular and central white matter diminished attenuation. There is no acute territorial defect, hemorrhage or midline shift. The extra-axial spaces are unremarkable. Calvarium: Intact. Facial bones: No fracture is seen. There is mucosal thickening of the maxillary sinuses. The remaining maxillofacial sinuses and mastoids are clear. The soft tissues are unremarkable. Cervical spine: There is reversal of the expected cervical spine curvature. There is moderate C5-C6 and C6-C7 disc degenerative change and mild disc degenerative change throughout the remaining cervical spine with loss of disc space, endplate change and C5-C6 and C6-C7 posterior osteophytes associated with diffuse facet osteoarthritic hypertrophic change with mild C5-C6 spinal canal narrowing and multilevel watp-ap-hadetdia neuroforaminal narrowing. The bony structures are heterogeneous/osteopenic. There is no cervical fracture. There is a chronic fracture of the spinous process of T2. Soft tissues are unremarkable. The upper lung machado are clear. CT/CT facial bones wo IV con IMPRESSION: 1. No acute intracranial pathology. Mild chronic white matter microangiopathy. 2. No acute facial bone fracture. 3. No acute cervical spine fracture or malalignment. Multilevel degenerative changes of the cervical spine.
--- NOTE | ~2023-08-15 | CT_ITS ---
EXAMINATION: CT HEAD WITHOUT CONTRAST CT CERVICAL SPINE WITHOUT CONTRAT CT FACIAL BONES WITHOUT CONTRAST CLINICAL INFORMATION: Fall. Pain. COMPARISON: Correlation made with CT chest performed 07/31/2021 which included a portion of the lower cervical spine. TECHNIQUE: Contiguous axial imaging was performed through the head, facial bones and cervical spine without intravenous administration of contrast. Sagittal and coronal reformatted images also obtained. This CT examination was performed using dose optimization techniques as appropriate, variously including the following: *Automated exposure control *Adjustment of mA and/or kV according to patient size (this includes techniques or standardized protocols for targeted exams where dose is matched to indication/reason for exam; i.e. extremities or head) *Use of iterative reconstruction technique DLP: 1030+310. mGy-cm FINDINGS: The lateral, third and fourth ventricles are normally outlined. The cortical sulci and basal cisterns are normally outlined as well. There is mild bilateral periventricular and central white matter diminished attenuation. There is no acute territorial defect, hemorrhage or midline shift. The extra-axial spaces are unremarkable. Calvarium: Intact. Facial bones: No fracture is seen. There is mucosal thickening of the maxillary sinuses. The remaining maxillofacial sinuses and mastoids are clear. The soft tissues are unremarkable. Cervical spine: There is reversal of the expected cervical spine curvature. There is moderate C5-C6 and C6-C7 disc degenerative change and mild disc degenerative change throughout the remaining cervical spine with loss of disc space, endplate change and C5-C6 and C6-C7 posterior osteophytes associated with diffuse facet osteoarthritic hypertrophic change with mild C5-C6 spinal canal narrowing and multilevel [id number] neuroforaminal narrowing. The bony structures are heterogeneous/osteopenic. There is no cervical fracture. There is a chronic fracture of the spinous process of T2. Soft tissues are unremarkable. The upper lung machado are clear. CT/CT cervical spine wo IV con IMPRESSION: 1. No acute intracranial pathology. Mild chronic white matter microangiopathy. 2. No acute facial bone fracture. 3. No acute cervical spine fracture or malalignment. Multilevel degenerative changes of the cervical spine.
[2023-08-15 02:20] VITALS: BP 146/90; BP 153/59; PULSE 82; PULSE 85; RESP 16; TEMP 36.4; O2SAT 94; O2SAT 95; BMI 21.7
--- OUTSIDE RECORDS SUMMARY | 2023-08-15 03:12 | XMS_ITS | Continuity of Care Document ---
Author Name Unknown Organization [facility] Address [address] [place], [place] [address]ashly nicolas, [address] [place] [address]- Care Team Providers Care Environmental Studies Professor Name Role Phone Anupama MURRAY, Derrick Strong Primary Care Physician [facility] Date[facility]): [facility]23 - 06/19/23 [facility] [address] [place] [address] Drive, [address] [place], [place] [address] Attending Physician: Admrafael, Yesenia Admitting Physician: AdmtrYesenia Referring Physician: Admtr, Ar8 Allergies, Adverse Reactions, Alerts No Known Allergies Immunizations Given and Recorded Vaccine Date Status Refusal Reason SARS-CoV-2 (COVID-19) mRNA-1273 vaccine 01/01/22 R ecorded SARS-CoV-2 (COVID-19) mRNA BNT-162b2 vac 07/01/21 Recorded SARS-CoV-2 (COVID-19) Ad26 vaccine 11/13/20 Record ed Medications Acetaminophen = 500 mg, By Mouth, 2 times a day, 0 Refills, Maintenance, 03/10/22 15:24:00 EDT, Partial fill uponpatient request if the prescription is for a schedule II opioid drug. Start Date: 03/10/22 Status: Ordered atorvastatin 40 mg oral tablet 1 tablet = 40 mg, By Mouth, Daily at bedtime, # 90 tablet, 0 Refills, Maintenance, 03/12/22 10:15:00 EDT, Tablet, Partial fill upon patient request if the prescription is for a schedule II opioid drug. Start Date: 03/12/22 Status: Ordered calcitriol 0.5 mcg oral capsule See Instructions, 1 capsule By Mouth three times a week., 0 Refills, Maintenance, 05/06/23 12:10:00EDT, Partial fill upon patient request if the prescription is for a schedule II opioid drug. Start Date: 05/06/23 Status: Ordered calcium carbonate 500 mg (200 mg elemental calcium) oral tablet, chewable 1,000 mg, 2, tablet, Chew, Daily at bedtime, PRN, # 60 tablet, Refills 0, Maintenance, as needed for dyspepsia, 03/12/22 10:16:00 EDT, Partial fill upon patient request if the prescription is for a schedule II opioid drug. Start Date: 03/12/22 Status: Ordered Cholecalciferol = 100 mcg, By Mouth, Daily at bedtime, 0 Refills, Maintenance, 05/06/23 12:43:00 EDT, Partial fill upon patient request if the prescription is for a schedule II opioid drug. Start Date: 05/06/23 Status: Ordered denosumab = 60 mg, Subcutaneous Infusion, Every 6 months, 0 Refills, Maintenance, 03/10/22 15:28:00 EDT, Partial fill upon patient request if the prescription is for a schedule II opioid drug. Start Date: 03/10/22 Status: Ordered Dexmethylphenidate = 15 mg, By Mouth, Daily, 0 Refills, Maintenance, 03/10/22 15:28:00 EDT, Partial fill upon patient request if the prescription is for a schedule II opioid drug. Start Date: 03/10/22 Status: Ordered divalproex sodium delayed release = 500 mg, By Mouth, Daily at bedtime, 0 Refills, Maintenance, 03/12/22 10:24:00 EDT, Partial fill upon patient request if the prescription is for a schedule II opioid drug. Start Date: 03/12/22 Status: Ordered Docusate = 100 mg, By Mouth, Daily in AM, 0 Refills, Maintenance, 05/06/23 12:08:00 EDT, Partial fill upon patient request if the prescription is for a schedule II opioid drug. Start Date: 05/06/23 Status: Ordered Gabapentin = 300 mg, By Mouth, Daily in AM, 0 Refills, Maintenance, 03/10/22 15:29:00 EDT, Partial fill upon patient request if the prescription is for a schedule II opioid drug. Start Date: 03/10/22 Status: Ordered gabapentin 400 mg oral capsule 400 mg, 1, capsule, By Mouth, Daily at bedtime, Refills 0, Maintenance, 03/12/22 10:26:00 EDT, Partial fill upon patient request if the prescription is for a schedule II opioid drug. Start Date: 03/12/22 Status: Ordered Myfortic = 360 mg, By Mouth, 2 times a day, 0 Refills, Maintenance, 03/10/22 15:29:00 EDT, Partial fill uponpatient request if the prescription is for a schedule II opioid drug. Start Date: 03/10/22 Status: Ordered Primidone 50 mg, By Mouth, Daily at bedtime, Refills 0, Maintenance, 04/15/23 15:53:00 EDT, Partial fill uponpatient request if the prescription is for a schedule II opioid drug. Start Date: 04/15/23 Status: Ordered TEGretol XR 400 mg oral tablet, extended release 400 mg, 1, tablet, By Mouth, 2 times a day, # 60 tablet, Refills 5, Maintenance, 03/12/22 10:18:00 EDT, Partial fill upon patient request if the prescription is for a schedule II opioid drug. Start Date: 03/12/22 Status: Ordered Venlafaxine = 150 mg, By Mouth, Daily, 0 Refills, Maintenance, 03/10/22 15:29:00 EDT, Partial fill upon patientrequest if the prescription is for a schedule II opioid drug. Start Date: 03/10/22 Status: Ordered Vitamin C = 1,000 mg, By Mouth, Daily, 0 Refills, Maintenance, 03/10/22 15:26:00 EDT, Partial fill upon patient request if the prescription is for a schedule II opioid drug. Start Date: 03/10/22 Status: Ordered Vitron-C 125 mg-65 mg oral tablet 1 tablet, By Mouth, Daily, # 60 tablet, 0 Refills, Maintenance, 03/12/22 10:30:00 EDT, Tablet, Partial fill upon patient request if the prescription is for a schedule II opioid drug. Start Date: 03/12/22 Status: Ordered Problem List Condition Confirmation Course Effective Dates Status Health St atus Informant HTN (hypertension) Confirmed Active Multiple sclerosis Confirmed Active Seizure disorder Confirmed Active Trigeminal neuralgia Confirmed Active Social History Social History Type Response Smoking Status Never (less than 100 in lifetime) entered on: 04/15/23 Sex Patient Care team information Care Team Personnel Name: Shante Cobian RN Position: S RN Member Role: Primary Care Nurse Name: Roxie Acosta RN Position: S RN Member Role: Primary Care Nurse Name: Ileana Daily RN Position: S RN Member Role: Primary Care Nurse Name: Jada Becerril RN Position: S RN Member Role: Primary Care Nurse Name: Derrick Altman MD Position: [facility] Physician (General Medicine) Member Role: PCP Address: Address: [address] [place] [address] [facility] [place], [place] [address] Name: Jorje Muñoz RN Position: [facility] RN Member Role: Primary Care Nurse Care Team Related Persons Name: MERARI VICTOR Address: [place] [address] Name: MYKEL DWYER Address: home [address] [place] [address] Name: LANDY DWYER Address: home [address] [place] [address] Name: DERRICK COX
--- OUTSIDE RECORDS SUMMARY | 2023-08-15 03:12 | XMS_ITS | Continuity of Care Document ---
Author Name Unknown Organization [facility] ter Address [address] [place] [address]- Care Team Providers Care Publications Distribution Clerk Name Role Phone Anupama MURRAY, Andrew Strong Primary Care Physician Encounter [facility] Date(s): 03/13/22 - 03/16/[address] [address] Discharge Disposition: A-D/C Home Attending Physician: Sun Mullen MD Admitting Physician: Sun Mullen MD Referring Physician: Sun Mullen MD Allergies, Adverse Reactions, Alerts No Known Allergies [...] opioid drug. Start Date: 03/10/22 Status: Ordered acetaminophen-codeine 300 mg-30 mg oral tablet 1, tablet, By Mouth, Every 6 hours, PRN, Refills 0, Maintenance, for pain, 03/12/22 10:14:00 EDT, Tablet, Partial fill upon patient request if the prescription is for a schedule II opioid drug. Start Date: 03/12/22 Status: Ordered atorvastatin 40 mg oral tablet 1 tablet = 40 mg, By Mouth, Daily at bedtime, # 90 tablet, 0 Refills, Maintenance, 03/12/22 10:15:00 EDT, Tablet, Partial fill upon patient request if the prescription is for a schedule II opioid drug. Start Date: 03/12/22 Status: Ordered calcium carbonate 500 mg (200 mg elemental calcium) oral tablet, chewable 1,000 mg, 2, tablet, Chew, Daily at bedtime, PRN, # 60 tablet, Refills 0, Maintenance, as needed for dyspepsia, 03/12/22 10:16:00 EDT, Partial fill upon patient request if the prescription is for a schedule II opioid drug. Start Date: 03/12/22 Status: Ordered carvedilol 6.25 mg oral tablet 6.25 mg, 1, tablet, By Mouth, 2 times a day, # 60 tablet, Refills 0, Tot. Refills 0, Maintenance, 03/16/22 17:06:00 EDT, Print Requisition, Partial fill upon patient request if the prescription is for a schedule II opioid drug. Start Date: 03/16/22 Status: Ordered carvedilol 6.25 mg oral tablet 6.25 mg, Tablet, By Mouth, 03/15/22 14:40:00 EDT Start Date: 03/15/22 Stop Date: 03/15/22 Status: Completed carvedilol 6.25 mg oral tablet 6.25 mg, Tablet, By Mouth, 03/15/22 21:00:00 EDT Start Date: 03/15/22 Stop Date: 03/15/22 Status: Completed carvedilol 6.25 mg oral tablet 6.25 mg, Tablet, By Mouth, 03/16/22 9:00:00 EDT Start Date: 03/16/22 Stop Date: 03/16/22 Status: Completed cholecalciferol 5000 intl units oral tablet 1 tablet = 125 mcg, By Mouth, Daily at bedtime, # 100 tablet, 0 Refills, Maintenance, 03/12/22 10:21:00 EDT, Tablet, Partial fill upon patient request if the prescription is for a schedule II opioid drug. Start Date: 03/12/22 Status: Ordered denosumab = 60 mg, Subcutaneous [...] opioid drug. Start Date: 03/12/22 Status: Ordered Gabapentin = 300 mg, By Mouth, Daily in AM, 0 Refills, Maintenance, 03/10/22 15:29:00 EDT, Partial fill upon patient request if the prescription is for a schedule II opioid drug. Start Date: 03/10/22 Status: Ordered gabapentin 300 mg oral capsule 300 mg, Capsule, By Mouth, 03/16/22 9:00:00 EDT Start Date: 03/16/22 Stop Date: 03/16/22 Status: Completed gabapentin 400 mg oral capsule 400 mg, 1, capsule, By Mouth, Daily at bedtime, Refills 0, Maintenance, 03/12/22 10:26:00 EDT, Partial fill upon patient request if the prescription is for a schedule II opioid drug. Start Date: 03/12/22 Status: Ordered Hydrochlorothiazide = 12.5 mg, By Mouth, Daily, 0 Refills, Maintenance, 03/10/22 15:29:00 EDT, Partial fill upon patient request if the prescription is for a schedule II opioid drug. Start Date: 03/10/22 Status: Ordered Ibuprofen 600 mg, By Mouth, Daily, Refills 0, Maintenance, 03/10/22 15:29:00 EDT, Partial fill upon patient request if the prescription is for a schedule II opioid drug. Start Date: 03/10/22 Status: Ordered Myfortic = 720 mg, By Mouth, 2 times a day, 0 Refills, Maintenance, 03/10/22 15:29:00 EDT, Partial fill uponpatient request if the prescription is for a schedule II opioid drug. Start Date: 03/10/22 Status: Ordered Peridex 0.12% liquid 15 mL = 0.018 Gm, By Mouth, 2 times a day, # 473 mL, 0 Refills, Maintenance, 03/12/22 10:20:00 EDT,Liquid, Partial fill upon patient request if the prescription is for a schedule II opioid drug. Start Date: 03/12/22 Status: Ordered TEGretol 200 mg oral tablet 200 mg, 1, tablet, By Mouth, 2 times a day, # 60 tablet, Refills 0, Tot. Refills 0, Maintenance, 03/03/22 12:08:00 EDT, Print Requisition, Partial fill upon patient request if the prescription is fora schedule II opioid drug., 175.26, cm, 04/24/20 16... Start Date: 03/03/22 Status: Ordered TEGretol XR 400 mg oral tablet, extended release 400 mg, 1, tablet, By Mouth, 2 times a day, # 60 tablet, Refills 5, Maintenance, 03/12/22 10:18:00 EDT, Partial fill upon patient request if the prescription is for a schedule II opioid drug. Start Date: 03/12/22 Status: Ordered Tylenol Tablet 975 mg, Tablet, By Mouth, 03/16/22 10:00:00 EDT Start Date: 03/16/22 Stop Date: 03/16/22 Status: Completed Venlafaxine = 150 mg, By Mouth, Daily, [...] Date: 03/12/22 Status: Ordered Problem List Condition Effective Dates Status Health Status Inform ant HTN (hypertension)(Confirmed) Active Multiple sclerosis(Confirmed) Active Seizure disorder(Confirmed) Active Trigeminal neuralgia(Confirmed) Active Results Radiology Reports * Exam Date Time Procedure Performing Provider Status 03/15/22 5:55 PM Chest Portable Cielo , Manan; Auth (Ve rified) Notes: (Chest Portable) Reason For Exam: mild fever, tachycardia;Fever RESULT: Chest Portable Chest Portable REASON: Fever; mild fever, tachycardia; Clinical Question(s): Postop / Postop COMPARISON: None. FINDINGS: LINES AND TUBES: None. LUNGS AND PLEURA: Right lung is clear. Mild blunting of the left costophrenic angle. No pneumothorax. HEART, MEDIASTINUM AND HIRAM: Heart is normal in size. Normal mediastinal and hilar contour. BONES AND SOFT TISSUES: No acute abnormality. IMPRESSION: Mild blunting of the left costophrenic angle is likely due to small pleural effusion and/or atelectasis. WSN: [id number] Ordering Physician: Ángela Calvillo Dictated By: Ho Vicente MD Dictated Date/Time: 03/15/22 5:57 pm Reviewed By: Ho Vicente MD Signed By: Ho Vicente MD Signed Date/Time: 03/15/22 5:57 pm Transcribed By: INGE Transcribed Date/Time: 03/15/22 5:56 pm * Exam Date Time Procedure Performing Provider Status 03/13/22 2:19 PM C-Arm < 1 Hour Carlos Rodriguez (V erified) Notes: (C-Arm < 1 Hour) Reason For Exam: Glycerol Rhizotomy RESULT: C-Arm < 1 Hour C-Arm < 1 Hour INDICATION: Reason: Glycerol Rhizotomy COMPARISONS: None TECHNIQUE: Fluoroscopy support was provided. There was no radiologist in attendance. FLUOROSCOPY TIME: 53.2 seconds TECHNOLOGIST TIME: 33 minutes FINDINGS: Fluoroscopy support was provided. There was no radiologist in attendance IMPRESSION: See above. WSN: [id number] Ordering Physician: Sun Mullen Dictated By: Simone Ma MD Dictated Date/Time: 03/14/22 2:29 pm Reviewed By: Simone aM MD Signed By: Simone Ma MD Signed Date/Time: 03/14/22 2:29 pm Transcribed By: INGE Transcribed Date/Time: 03/13/22 10:05 pm Vital Signs Most recent to oldest [Reference Range]: 1 2 3 4 Height 175.26 cm (03/16/22 2:00 AM) 175.26 cm (03/16/22 12:00 AM) 175.26 cm (03/15/22 10:05 PM) Weight 83.8 kg (03/13/22 7:11 PM) 72.7 kg 1 (03/13/22 10:36 AM) 72.73 kg (03/11/22 5:02 PM) Oxygen Saturation [94-100 %] 98 % (03/16/22 12:00 PM) 100 % (03/16/22 10:00 AM) 100 % (03/16/22 8:00 AM) Pulse Rate [55-90 bpm] 82 bpm (03/16/22 9:11 AM) 83 bpm (03/15/22 10:33 PM) 97 bpm *H* (03/15/22 4:00 PM) Body Mass Index [18.5-24.99] 23.67 (03/13/22 10:36 AM) 23.68 (03/11/22 5:02 PM) Blood Pressure [90-138/55-84 mm Hg] 146/87mm Hg *H* (03/16/22 2:00 PM) 137/79mm Hg (03/16/22 12:00 PM) 141/85mm Hg *H* (03/16/22 10:00 AM) Respiratory Rate [16-30 br/min] 24 br/min (03/16/22 2:00 PM) 18 br/min (03/16/22 12:00 PM) 22 br/min (03/16/22 11:30 AM) 22 br/min (03/16/22 11:30 AM) Temperature [96.8-100.4 DegF] 97.1 DegF (03/16/22 11:00 AM) 97.3 DegF (03/16/22 7:00 AM) 97.9 DegF (03/16/22 4:00 AM) Liters per Minute 2 L/min (03/13/22 3:00 PM) 2 L/min (03/13/22 2:55 PM) 2 L/min (03/13/22 2:45 PM) Mode of Delivery (Oxygen) Room air (03/16/22 12:00 PM) Room air (03/16/22 10:00 AM) Room air (03/16/22 8:00 AM) Blood pressure sites Arm, left (03/15/22 4:00 AM) Arm, left (03/13/22 6:00 PM) Arm, right (03/13/22 10:36 AM) Temperature Route Temporal (03/16/22 11:00 AM) Temporal (03/16/22 7:00 AM) Temporal (03/16/22 4:00 AM) Weight Obtained Via Bed scale (03/13/22 7:11 PM) Patient/family stated (03/13/22 10:36 AM) Patient/family stated (03/11/22 5:02 PM) 1Result Comment: anesthesia made aware pt weight is stated weight only
--- OUTSIDE RECORDS SUMMARY | 2023-08-15 03:12 | XMS_ITS | Continuity of Care Document ---
Author Name Unknown Organization [facility] Address [address] [place] [address], [address] [place] [address]- Care Team Providers Care Basket Assembler Name Role Phone Yann TAM, Mariposa Quispe Primary Care Physician [facility] Date[facility]): 02[facility]20 - 04/20/20 [facility] [address] [place] [address], [address] [place] [address]- [facility] Attending Physician: Sebas MURRAY, Sun Mcrae Referring Physician: Casie MURRAY, Iman Murillo Allergies, Adverse Reactions, Alerts Substance Reaction Severity Status NKA Active
--- OUTSIDE RECORDS SUMMARY | 2023-08-15 03:12 | XMS_ITS | Continuity of Care Document ---
Author Name Unknown Organization [facility] Address [address] [place], [place] [address] nicolas, [address] [place] [address]- Care Team Providers Care Principal Automation Engineer Name Role Phone Anupama MURRAY, Andrew Strong Primary Care Physician Encounter [facility] Date(s): 03/10/22 - 03/17/22 [facility] [address] [place] [address] Drive, [address] [place], [place] [address] Attending Physician: Sun Mullen MD Allergies, Adverse Reactions, [...] opioid drug. Start Date: 03/16/22 Status: Ordered cholecalciferol 5000 intl units oral tablet 1 [...] Active Seizure disorder(Confirmed) Active Trigeminal neuralgia(Confirmed) Active Vital Signs Most recent to oldest [Reference Range]: 1 Height 175.26 cm (03/10/22 10:38 AM) Weight 65.9 kg (03/10/22 10:38 AM) Body Mass Index [18.5-24.99] 21.45 (03/10/22 10:38 AM)
--- OUTSIDE RECORDS SUMMARY | 2023-08-15 03:12 | XMS_ITS | Continuity of Care Document ---
Author Name Unknown Organization [facility] Address [address] [place], [place] [address] nicolas, [address] [place] [address]- Care Team Providers Care Shipping And Receiving Material Handler Name Role Phone Anupama MURRAY, Andrew Strong Primary Care Physician [phone] [facility] Date(s): 03/30/22 - 04/29/22 [facility] [address] [place] [address] Drive, [address] [place], [place] [address] Allergies, Adverse Reactions, Alerts No Known Allergies [...] Active Seizure disorder(Confirmed) Active Trigeminal neuralgia(Confirmed) Active Care Team Personnel Name: Anupama MURRAY, Andrew Strong Address: [address] [place] [address]
--- OUTSIDE RECORDS SUMMARY | 2023-08-15 03:12 | XMS_ITS | Continuity of Care Document ---
Author Name Unknown Organization [facility] Address [address] [place] [address] [address], [address] [place] [address]- Care Team Providers Care Puppet Developer Name Role Phone Anupama MURRAY, Andrew Strong Primary Care Physician Encounter [facility] Date(s): 03/06/22 - 04/05/[address], [address] [place] [address]- Allergies, Adverse Reactions, Alerts No Known Allergies [...]
--- OUTSIDE RECORDS SUMMARY | 2023-08-15 03:12 | XMS_ITS | Continuity of Care Document ---
Author Name Unknown Organization [facility] Address [address] [place] [address], [address] [place] [address]- Care Team Providers Care Warp Placer Name Role Phone Yann TAM, Mariposa Quispe Primary Care Physician [facility] Date[facility]s): 04/25/20 - 05/25/20 [facility] [address] [place] [address], [address] [place] [address]- [facility] Attending Physician: Admtr, Ar8 Admitting Physician: Admtr, Ar8 Referring Physician: Admtr, Ar8 Allergies, Adverse Reactions, Alerts Substance Reaction Severity Status NKA Active
--- OUTSIDE RECORDS SUMMARY | 2023-08-15 03:12 | XMS_ITS | Continuity of Care Document ---
Author Name Unknown Organization [facility] Address [address] [place] [address], [address] [place] [address]- Care Team Providers Care Energy Project Engineer Name Role Phone Yann TAM, Mariposa Quispe Primary Care Physician [phone] [facility]counter [facility] Date(s): 04/09/20 - 05/09/20 [facility] [address] [place] [address], [address] [place] [address]- [facility] Allergies, Adverse Reactions, Alerts Substance Reaction Severity Status NKA Active
--- OUTSIDE RECORDS SUMMARY | 2023-08-15 03:12 | XMS_ITS | Continuity of Care Document ---
Author Name Unknown Organization [facility] Address [address] [place] [address] [address], [address] [place] [address]- Care Team Providers Care Padded Products Inspector Trimmer Name Role Phone Anupama MURRAY, Andrew Strong Primary Care Physician [place] [facility] Date(s): 03/03/22 - 04/02/[address], [address] [place] [address]- Allergies, Adverse Reactions, Alerts No Known Allergies [...]
--- OUTSIDE RECORDS SUMMARY | 2023-08-15 03:12 | XMS_ITS | Continuity of Care Document ---
Author Name Unknown Organization [facility] Address [address] [place] [address], [address] [place] [address]- Care Team Providers Care Canal Equipment Mechanic Name Role Phone Yann TAM, Mariposa Quispe Primary Care Physician [phone] [facility] Date(s): 04/08/20 - 05/08/20 [facility] [address] [place] [address], [address] [place] [address]- [facility] Allergies, Adverse Reactions, Alerts Substance Reaction Severity Status NKA Active
--- OUTSIDE RECORDS SUMMARY | 2023-08-15 03:12 | XMS_ITS | Continuity of Care Document ---
Author Name Unknown Organization [facility] Address [address] [place] [address], [address] [place] [address]- Care Team Providers Care Correspondence Review Clerk Name Role Phone Yann TAM, Mariposa Quispe Primary Care Physician [facility] Date(s): 03/19/20 - 04/18/20 [facility] [address] [place] [address], [address] [place] [address]- [facility] Allergies, Adverse Reactions, Alerts Substance Reaction Severity Status NKA Active
--- OUTSIDE RECORDS SUMMARY | 2023-08-15 03:12 | XMS_ITS | Continuity of Care Document ---
Author Name Unknown Organization [facility] Address [address] [place], [place] [address]olas, [address] [place] [address]- Care Team Providers Care Aids Nurse Name Role Phone Yann TAM, Mariposa Quispe Primary Care Physician [place] [facility] [place] 01/21/21 - 01/28/[address], [address] [place] [address]- Attending Physician: Sebas MURRAY, Sun Mcrae Referring Physician: Mariposa Lerner NP Allergies, Adverse Reactions, Alerts Substance Reaction Severity Status NKA Active Medications acetaminophen 325 mg oral tablet 975 mg, By Mouth, Every 6 hours, PRN, If patient has not received Oxycodone/Acetaminophen (Percocet-5) in PACU not to exceed 4000 mg/day, # 50 tablet, Refills 0, Tot. Refills 0, Acute 02/26/21 12:00:00 EDT, Pain , Mild, 01/27/21 16:41:00 EDT, Print R... Start Date: 01/27/21 Stop Date: 02/26/21 Status: Ordered
--- OUTSIDE RECORDS SUMMARY | 2023-08-15 03:12 | XMS_ITS | Continuity of Care Document ---
Author Name Unknown Organization [facility] Address [address] [place] [address], [address] [place] [address]- Care Team Providers Care Pierogi Maker Name Role Phone Yann TAM, Mariposa Quispe Primary Care Physician [facility] Date(s): 03/19/20 - 04/20/20 [facility] [address] [place] [address], [address] [place] [address]- [facility] Attending Physician: Sebas MURRAY, Sun Mcrae Referring Physician: Gely Schaffer MD Allergies, Adverse Reactions, Alerts Substance Reaction Severity Status NKA Active
--- OUTSIDE RECORDS SUMMARY | 2023-08-15 03:12 | XMS_ITS | Continuity of Care Document ---
Author Name Unknown Organization [facility] Address [address] [place] [address], [address] [place] [address]- Care Team Providers Care Planning Aide Name Role Phone Mariposa Lerner NP Primary Care Physician [place] [facility] [place] 04/25/20 - 05/02/20 [facility] [address] [place] [address] Drive, [address] [place] [address]- [facility] Attending Physician: Sun Mullen MD Referring Physician: Mariposa Lerner NP Allergies, Adverse Reactions, Alerts Substance Reaction Severity Status NKA Active Vital Signs Most recent to oldest [Reference Range]: 1 Height 175.26 cm (04/24/20 4:19 PM) Weight 65.9 kg (04/24/20 4:19 PM) Body Mass Index [18.5-24.99] 21.45 (04/24/20 4:19 PM)
--- OUTSIDE RECORDS SUMMARY | 2023-08-15 03:12 | XMS_ITS | Continuity of Care Document ---
Author Name Unknown Organization [facility]surger y Address [address] [place] [address] f[address]enc[address], [address] [place] [address]- Care Team Providers Care Prosthetist Name Role Phone Anupama MURRAY, Andrew Strong Primary Care Physician [phone] [facility] Date[facility]s): 04/[facility]/22 - 05/21/[address], [address] [place], [place] [address] Attending Physician: Admtr, Yesenia Admitting Physician: AdmtrYesenia Referring Physician: Admtr, [...] disorder Confirmed Active Trigeminal neuralgia Confirmed Active Patient Care team information Personnel Name: Anupama MURRAY, Andrew Strong Address: Address: [address] [facility] [address] [facility] [place], [place] [address]
--- OUTSIDE RECORDS SUMMARY | 2023-08-15 03:12 | XMS_ITS | Continuity of Care Document ---
Author Name Unknown Organization [facility]sur[facility] y Address [address] [place] [address], [address] [place] [address]- Care Team Providers Care Towel Inspector Name Role Phone Yann TAM, Mariposa Quispe Primary Care Physician [phone] Encounter [facility] Date(s): 04/12/20 - 05/12/20 [facility] Neurosurgery [address] [place] [address], [address] [place] [address]- [facility] Allergies, Adverse Reactions, Alerts Substance Reaction Severity Status NKA Active
--- OUTSIDE RECORDS SUMMARY | 2023-08-15 03:12 | XMS_ITS | Continuity of Care Document ---
Author Name Unknown Organization [facility] Neurosurger y Address [address] [place] [address] Gre[address] nicolas, [address] [place] [address]- Care Team Providers Care Car Pick Up Driver Name Role Phone Yann TAM, Mariposa Quispe Primary Care Physician Encounter [facility] Date(s): 01/22/21 - 02/21/[address], [address] [place] [address]- Allergies, Adverse Reactions, Alerts Substance Reaction Severity [...]
--- OUTSIDE RECORDS SUMMARY | 2023-08-15 03:12 | XMS_ITS | Continuity of Care Document ---
Author Name Unknown Organization [facility] Neurosurger y Address [address] [place], [place] [address]jasmeet nicolas, [address] [place] [address]- Care Team Providers Care Development Associate Name Role Phone Anupama MURRAY, Derrick Strong Primary Care Physician [phone] Encounter [facility] Date(s): 04/20/23 - 05/20/23 [facility] Neurosurgery [address] [place] [address] Drive, [address] [place], [place] [address] Allergies, Adverse Reactions, Alerts No Known Allergies [...] Team Personnel Name: Shante Cobian RN Position: JOANNES RN Member Role: Primary Care Nurse Name: Roxie Acosta RN Position: SAMMY RN Member Role: Primary Care Nurse Name: Ileana Daily RN Position: [facility] RN Member Role: Primary Care Nurse Name: Jada Becerril RN Position: [facility] RN Member Role: Primary Care Nurse Name: Derrick Altman MD Position: [facility] Physician (General Medicine) Member Role: PCP Address: Address: [address] [address] Name: Jorje Muñoz RN Position: [facility] RN Member Role: Primary Care Nurse Care Team Related Persons Name: MERARI VICTOR Address: [place] [address] Name: MYKEL DWYER Address: home [address] [place] [address] Name: LANDY DWYER Address: home [address] [place] [address] Name: DERRICK COX
--- OUTSIDE RECORDS SUMMARY | 2023-08-15 03:12 | XMS_ITS | Continuity of Care Document ---
Author Name Unknown Organization [facility] Neurosurger y Address [address] [place] [address], [address] [place] [address]- Care Team Providers Care Electric Refrigerator Preparer Name Role Phone Yann TAM, Mariposa Quispe Primary Care Physician [phone] [facility] Date(s): 02/04/21 - 03/06/21 [facility] Neurosurgery [address] [place] [address], [address] [place], [place] [address] Allergies, Adverse Reactions, Alerts Substance Reaction Severity Status NKA Active
--- OUTSIDE RECORDS SUMMARY | 2023-08-15 03:12 | XMS_ITS | Continuity of Care Document ---
Author Name Unknown Organization [facility] Address [address] [place] [address]- Care Team Providers Care Dross Puller Name Role Phone Yann TAM, Mariposa Quispe Primary Care Physician En[place] [facility] Date(s): 01/27/21 - 01/27/[address] [address] Discharge Disposition: A-D/C Home Attending Physician: Sun Mullen MD Admitting Physician: Sun Mullen MD Referring Physician: Sun Mullen MD Allergies, Adverse Reactions, Alerts Substance Reaction [...] Date: 01/27/21 Stop Date: 02/26/21 Status: Ordered Vital Signs Most recent to oldest [Reference Range]: 1 2 3 Oxygen Saturation [94-100 %] 99 % (01/27/21 4:00 PM) 100 % (01/27/21 3:45 PM) 99 % (01/27/21 3:30 PM) Pulse Rate [55-90 bpm] 84 bpm (01/27/21 12:05 PM) Blood Pressure [90-138/55-84 mm Hg] 128/74mm Hg (01/27/21 4:00 PM) 116/74mm Hg (01/27/21 3:45 PM) 116/74mm Hg (01/27/21 3:30 PM) Respiratory Rate [16-30 br/min] 15 br/min *L* (01/27/21 4:00 PM) 7 br/min *L* (01/27/21 3:45 PM) 13 br/min *L* (01/27/21 3:30 PM) Temperature [96.8-100.4 DegF] 97.4 DegF (01/27/21 4:00 PM) 97.8 DegF (01/27/21 2:45 PM) 98.1 DegF (01/27/21 12:05 PM) Mode of Delivery (Oxygen) Room air (01/27/21 4:00 PM) Room air (01/27/21 3:15 PM) Room air (01/27/21 3:00 PM) Blood pressure sites Arm, right (01/27/21 4:00 PM) Arm, right (01/27/21 3:15 PM) Arm, right (01/27/21 3:00 PM) Temperature Route Temporal (01/27/21 4:00 PM) Temporal (01/27/21 2:45 PM) Temporal (01/27/21 12:05 PM) Dry Weight 69.3 kg (01/27/21 12:05 PM) Dry Weight Obtained Via Standing scale (01/27/21 12:05 PM)
--- OUTSIDE RECORDS SUMMARY | 2023-08-15 03:12 | XMS_ITS | Continuity of Care Document ---
Author Name Unknown Organization [facility]sur[facility] y Address [address] [place] [address], [address] [place] [address]- Care Team Providers Care Boat Dock Operator Name Role Phone Yann TAM, Mariposa Quispe Primary Care Physician [facility] Date(s): 04/24/20 - 05/24/20 [facility] Neurosurgery [address] [place] [address], [address] [place] [address]- [facility] Allergies, Adverse Reactions, Alerts Substance Reaction Severity Status NKA Active
--- OUTSIDE RECORDS SUMMARY | 2023-08-15 03:12 | XMS_ITS | Continuity of Care Document ---
Author Name Unknown Organization [facility] Neurosur[facility] y Address [address] [place] [address], [address] [place] [address]- Care Team Providers Care Manager Shipping Name Role Phone Yann TAM, Mariposa Quispe Primary Care Physician [phone] En[place] [facility] [place] Date(s): 03/11/20 - 04/10/20 [facility] Neurosurgery [address] [place] [address], [address] [place] [address]- [facility] Allergies, Adverse Reactions, Alerts Substance Reaction Severity Status NKA Active Medications acetaminophen 325 mg oral tablet 650 mg, By Mouth, Every 4 hours, for 5 days, not to exceed 4000 mg/day, # 30 tablet, Refills 0, Tot. Refills 0, Acute 04/15/20 12:30:00 EDT, 04/10/20 12:30:00 EDT, Route to Pharmacy Electronically, [facility], 175.26, lennie, 04/10/20 7:04:0... Start Date: 04/10/20 Stop Date: 04/15/20 Status: Ordered
--- OUTSIDE RECORDS SUMMARY | 2023-08-15 03:12 | XMS_ITS | Continuity of Care Document ---
Author Name Unknown Organization [facility]sur[facility] y Address [address] [place] [address], [address] [place] [address]- Care Team Providers Care Globe Tester Name Role Phone Yann TAM, Mariposa Quispe Primary Care Physician [phone] Encounter [facility] Date(s): 04/03/20 - 04/10/20 [facility] Neurosurgery [address] [place] [address] Drive, [address] [place] [address]- [facility] Attending Physician: Sebas MURRAY, Sun Mcrae Referring Physician: Gely Schaffer MD Allergies, Adverse Reactions, Alerts Substance Reaction Severity Status NKA Active Medications acetaminophen 325 mg oral tablet 650 mg, By Mouth, Every 4 hours, for 5 days, not to exceed 4000 mg/day, # 30 tablet, Refills 0, Tot. Refills 0, Acute 04/15/20 12:30:00 EDT, 04/10/20 12:30:00 EDT, Route to Pharmacy Electronically, [facility], 175.26, cm, 04/10/20 7:04:0... Start Date: 04/10/20 Stop Date: 04/15/20 Status: Ordered
--- OUTSIDE RECORDS SUMMARY | 2023-08-15 03:12 | XMS_ITS | Continuity of Care Document ---
Author Name Unknown Organization [facility] Neurosurger y Address [address] [place] [address] [address] nic[address], [address] [place] [address]- Care Team Providers Care Local Bulk Driver Name Role Phone Anupama MURRAY, Derrick Strong Primary Care Physician [phone] [place] [facility] Date(s): 04/15/23 - 04/22/[address], [address] [place] [address]- Attending Physician: Sun Mullen MD Allergies, Adverse [...] opioid drug. Start Date: 03/12/22 Status: Ordered Primidone By Mouth, Refills 0, Maintenance, 04/15/23 15:53:00 EDT, Partial fill upon patient request if the prescription is for a schedule II opioid drug. Start Date: 04/15/23 Status: Ordered TEGretol 200 mg oral tablet [...] disorder Confirmed Active Trigeminal neuralgia Confirmed Active Vital Signs Most recent to oldest [Reference Range]: 1 Height 175.26 cm (04/15/23 10:56 AM) Weight 70.5 kg (04/15/23 10:56 AM) Body Mass Index [18.5-24.99 kg/m2] 22.95 kg/m2 (04/15/23 10:56 AM) Social History Social History Type Response Smoking Status Never (less than 100 in lifetime) entered on: 04/15/23 Sex Patient Care team information Care Team Personnel Name: Roxie Acosta RN Position: S RN Member Role: Primary Care Nurse Name: Derrick Altman MD Position: [facility] Physician (General Medicine) Member Role: PCP Address: Address: [facility] [address] [facility] [place] [address]- Name: Jorje Muñoz RN Position: S RN Member Role: Primary Care Nurse Care Team Related Persons Name: VALENTESONNYMERARI Address: [place] [address] Name: MYKEL DWYER Address: home [address] [place] [address] Name: LANDY DWYER Address: home [address] [place] [address] Name: DERRICK COX
--- OUTSIDE RECORDS SUMMARY | 2023-08-15 03:13 | XMS_ITS | Continuity of Care Document ---
Author Name Unknown Organization [facility] Neurosurger y Address [address] [place] [address], [address] [place] [address]- Care Team Providers Care Dental Scheduler Name Role Phone Yann TAM, Mariposa Quispe Primary Care Physician [facility] Date(s): 04/08/20 - 05/08/20 [facility] Neurosurgery [address] [place] [address], [address] [place] [address]- [facility] Allergies, Adverse Reactions, Alerts Substance Reaction Severity Status NKA Active
--- OUTSIDE RECORDS SUMMARY | 2023-08-15 03:13 | XMS_ITS | Continuity of Care Document ---
Author Name Unknown Organization [facility]surger y Address [address] [place] [address] [address], [address] [place] [address]- Care Team Providers Care Dish Maker Name Role Phone Anuapma MURRAY, Andrew Strong Primary Care Physician Encounter [facility] Date(s): 03/03/22 - 04/02/[address], [address] [place] [address]- Allergies, Adverse Reactions, Alerts No Known Allergies [...]
--- OUTSIDE RECORDS SUMMARY | 2023-08-15 03:13 | XMS_ITS | Continuity of Care Document ---
Author Name Unknown Organization [facility] Neurosurger y Address [address] [place] [address] [address], [address] [place] [address]- Care Team Providers Care Sheet Metal Supervisor Name Role Phone Anupama MURRAY, Andrew Strong Primary Care Physician [phone] En[place] [facility] Date(s): 03/10/22 - 04/09/[address], [address] [place] [address]- Allergies, Adverse Reactions, Alerts No Known Allergies [...] Personnel Name: Anupama MURRAY, Andrew Strong Address: [address] [place] [address] Medical [place], [place] [address]
--- OUTSIDE RECORDS SUMMARY | 2023-08-15 03:13 | XMS_ITS | Continuity of Care Document ---
Author Name Unknown Organization [facility] Neurosur[facility] y Address [address] [place] [address], [address] [place] [address]- Care Team Providers Care Customs Import Specialist Name Role Phone Yann TAM, Mariposa Quispe Primary Care Physician [facility] Date(s): 04/08/20 - 05/08/20 [facility] Neurosurgery [address] [place] [address], [address] [place] [address]- [facility] Allergies, Adverse Reactions, Alerts Substance Reaction Severity Status NKA Active
--- OUTSIDE RECORDS SUMMARY | 2023-08-15 03:13 | XMS_ITS | Continuity of Care Document ---
Author Name Unknown Organization [facility] Neurosurger y Address [address] [place], [place] [address]jasmeet nicolas, [address] [place] [address]- Care Team Providers Care Machine Set Up Technician Name Role Phone Yann TAM, Mariposa Quispe Primary Care Physician [facility] [facility] Date(s): 02/11/21 - 02/18/[address], [address] [place] [address]- Attending Physician: Sebas MURRAY, Sun Mcrae Referring [...]
--- OUTSIDE RECORDS SUMMARY | 2023-08-15 03:13 | XMS_ITS | Continuity of Care Document ---
Author Name Unknown Organization [facility] ter Address [address] [place] [address]- Care Team Providers Care Bunghole Borer Name Role Phone Yann TAM, Mariposa Quispe Primary Care Physician En[place] [facility] [place] Date(s): 04/10/20 - 04/10/[address] [address]- [facility] Discharge Disposition: A-D/C Home Attending Physician: Sun [...] 04/10/20 12:30:00 EDT, Route to Pharmacy Electronically, [facility], 175.26, cm, 04/10/20 7:04:0... Start Date: 04/10/20 Stop Date: 04/15/20 Status: Ordered Vital Signs Most recent to oldest [Reference Range]: 1 2 3 Height 175.26 cm (04/10/20 7:04 AM) 175.26 cm (04/05/20 10:09 AM) Weight 65.91 kg (04/10/20 7:04 AM) 65.91 kg (04/05/20 10:09 AM) Oxygen Saturation [94-100 %] 99 % (04/10/20 11:45 AM) 98 % (04/10/20 11:30 AM) 98 % (04/10/20 11:15 AM) Pulse Rate [55-90 bpm] 83 bpm (04/10/20 7:04 AM) Body Mass Index [18.5-24.99] 21.46 (04/10/20 7:04 AM) 21.46 (04/05/20 10:09 AM) Blood Pressure [90-138/55-84 mm Hg] 138/73mm Hg (04/10/20 12:41 PM) 129/79mm Hg (04/10/20 12:15 PM) 134/82mm Hg (04/10/20 12:00 PM) Respiratory Rate [16-30 br/min] 22 br/min (04/10/20 12:41 PM) 22 br/min (04/10/20 12:30 PM) 22 br/min (04/10/20 12:15 PM) Temperature [96.8-100.4 DegF] 97.4 DegF (04/10/20 12:45 PM) 97.5 DegF (04/10/20 11:30 AM) 97.0 DegF (04/10/20 8:44 AM) Mode of Delivery (Oxygen) Room air (04/10/20 12:45 PM) Room air (04/10/20 11:45 AM) Room air (04/10/20 11:30 AM) Blood pressure sites Arm, left (04/10/20 11:45 AM) Arm, left (04/10/20 11:30 AM) Arm, left (04/10/20 11:15 AM) Temperature Route Temporal (04/10/20 11:30 AM) Temporal (04/10/20 8:44 AM) Temporal (04/10/20 7:04 AM) Dry Weight 63 kg (04/10/20 7:04 AM) 65.91 kg (04/05/20 10:09 AM) Weight Obtained Via Patient/family state d (04/05/20 10:09 AM) Dry Weight Obtained Via Patient/family s tated (04/05/20 10:09 AM)
--- OUTSIDE RECORDS SUMMARY | 2023-08-15 03:13 | XMS_ITS | Continuity of Care Document ---
Author Name Unknown Organization [facility] Neurosur[facility] y Address [address] [place] [address], [address] [place] [address]- Care Team Providers Care Starch Mangle Tender Name Role Phone Mariposa Lerner NP Primary Care Physician [phone] [facility] Date(s): 03/11/20 - 04/18/20 [facility] Neurosurgery [address] [place] [address], [address] [place] [address]- [facility] Attending Physician: Sun Mullen MD Referring Physician: Mariposa Lerner NP Allergies, Adverse Reactions, Alerts Substance Reaction Severity Status NKA Active
--- OUTSIDE RECORDS SUMMARY | 2023-08-15 03:13 | XMS_ITS | Continuity of Care Document ---
Author Name Unknown Organization [facility] Neurosurger y Address [address] [place] [address] Gre[address] nicolas, [address] [place] [address]- Care Team Providers Care Nail Assembly Machine Operator Name Role Phone Yann TAM, Mariposa Quispe Primary Care Physician [facility] Date(s): 01/01/21 - 01/31/[address], [address] [place] [address]- Allergies, Adverse Reactions, Alerts Substance Reaction Severity [...]
--- OUTSIDE RECORDS SUMMARY | 2023-08-15 03:13 | XMS_ITS | Continuity of Care Document ---
Author Name Unknown Organization [facility] Neurosurger y Address [address] [place] [address] [address], [address] [place] [address]- Care Team Providers Care Ram Car Operator Name Role Phone Derrick Altman MD Primary Care Physician [phone] Encounter [facility] Date(s): 05/20/23 - 05/27/23 [facility] Neurosurgery [address] [place] [address] Drive, [address] [place], [place] [address] Attending Physician: Sun Mullen MD Referring Physician: Derrick Altman MD Allergies, Adverse Reactions, Alerts No Known [...] recent to oldest [Reference Range]: 1 Height 171 cm (05/20/23 1:05 PM) Weight 73.0 kg (05/20/23 1:05 PM) Body Mass Index [18.5-24.99 kg/m2] 24.96 kg/m2 (05/20/23 1:05 PM) Social History Social History Type Response Smoking Status Never (less than 100 in lifetime) entered on: 04/15/23 Sex Patient Care team information Care Team Personnel Name: Shante Cobian RN Position: S RN Member Role: Primary Care Nurse Name: Karla RNRoxie Position: S RN Member Role: Primary Care Nurse Name: Ileana Daily RN Position: S RN Member Role: Primary Care Nurse Name: Jada Becerril RN Position: S RN Member Role: Primary Care Nurse Name: Derrick Altman MD Position: [facility] Physician (General Medicine) Member Role: PCP Address: Address: [address] [place] [address] Medical [place], [place] [address] Name: Jorje Muñoz RN Position: [facility] RN Member Role: Primary Care Nurse Care Team Related Persons Name: MERARI VICTOR Address: [place] [address] Name: MYKEL DWYER Address: home [address] [place] [address] Name: LANDY DWYER Address: home [address] [place] [address] Name: DERRICK COX
--- OUTSIDE RECORDS SUMMARY | 2023-08-15 03:13 | XMS_ITS | Continuity of Care Document ---
Author Name Unknown Organization [facility] Neurosurger y Address [address] [place], [place] [address]ashly nicolas, [address] [place] [address]- Care Team Providers Care Recovery Specialist Name Role Phone Anupama MURRAY, Andrew Strong Primary Care Physician Encounter [facility] [place] Date(s): 03/26/22 - 05/21/22 [facility] Neurosurgery [address] [place] [address] Drive, [address] [place], [place] [address] Attending Physician: Sun Mullen MD Allergies, Adverse [...] Name: Anupama MURRAY, Andrew Strong Address: Address: [facility] Medical [place], [place] [address]
--- OUTSIDE RECORDS SUMMARY | 2023-08-15 03:13 | XMS_ITS | Continuity of Care Document ---
Author Name Unknown Organization [facility] Neurosurger y Address [address] [place] [address] [address], [address] [place] [address]- Care Team Providers Care Cascade Operator Name Role Phone Yann TAM, Mariposa Quispe Primary Care Physician [facility] Date(s): 01/24/21 - 02/23/[address], [address] [place] [address]- Allergies, Adverse Reactions, Alerts Substance Reaction Severity [...]
--- OUTSIDE RECORDS SUMMARY | 2023-08-15 03:13 | XMS_ITS | Continuity of Care Document ---
Author Name Unknown Organization [facility] Neurosurger y Address [address] [place] [address], [address] [place] [address]- Care Team Providers Care Collar Band Creaser Name Role Phone Yann TAM, Mariposa Quispe Primary Care Physician [facility] Date(s): 04/09/20 - 05/09/20 [facility] Neurosurgery [address] [place] [address], [address] [place] [address]- [facility] Allergies, Adverse Reactions, Alerts Substance Reaction Severity Status NKA Active
--- OUTSIDE RECORDS SUMMARY | 2023-08-15 03:13 | XMS_ITS | Continuity of Care Document ---
Author Name Unknown Organization [facility] Neurosurger y Address [address] [place], [place] [address]ashly nicolas, [address] [place] [address]- Care Team Providers Care Resource Program Teacher Name Role Phone Anupama MURRAY, Derrick Strong Primary Care Physician [phone] [facility]counter [facility] Date(s): 05/25/23 - 06/24/23 [facility] Neurosurgery [address] [place] [address] Drive, [address] [place], [place] [address] Allergies, Adverse Reactions, Alerts No [...] Care Nurse Name: Ileana Daily RN Position: [facility] RN Member Role: Primary Care Nurse Name: Jada Becerril RN Position: [facility] RN Member Role: Primary Care Nurse Name: Derrick Altman MD Position: [facility] Physician (General Medicine) Member Role: PCP Address: Address: [address] [address] Name: Jorje Muñoz RN Position: [facility] RN Member Role: Primary Care Nurse Care Team Related Persons Name: MERARI VICTOR Address: [place] [address] Name: MYKEL DWYER Address: home [address] [place] [address] Name: LANDY DWYER Address: home [address] [place] [address] Name: DERRICK COX
--- OUTSIDE RECORDS SUMMARY | 2023-08-15 03:13 | XMS_ITS | Continuity of Care Document ---
Author Name Unknown Organization [facility] Neurosurger y Address [address] [place], [place] [address]ashly nicolas, [address] [place] [address]- Care Team Providers Care Development Mechanic Name Role Phone Anupama MURRAY, Andrew Strong Primary Care Physician Encounter [facility] Date(s): 03/10/22 - 04/25/22 [facility] Neurosurgery [address] [place] [address] Drive, [address] [place], [place] [address] Attending Physician: Sun Mullen MD [...] Personnel Name: Anupama MURRAY, Andrew Strong Address: [address] [place] [address] Medical [place], [place] [address]
--- OUTSIDE RECORDS SUMMARY | 2023-08-15 03:13 | XMS_ITS | Continuity of Care Document ---
Author Name Unknown Organization [facility] Neurosurger y Address [address] [place] [address] [address], [address] [place] [address]- Care Team Providers Care Respiratory Scientist Name Role Phone Anupama MURRAY, Andrew Strong Primary Care Physician Encounter [facility] Date(s): 02/13/22 - 03/15/22 [facility] Neurosurgery [address] [place] [address] Drive, [address] [place] [address]- Allergies, Adverse Reactions, Alerts No Known Allergies Medications Acetaminophen = 500 mg, By Mouth, [...] opioid drug. Start Date: 03/12/22 Status: Ordered cholecalciferol 5000 intl units oral [...] Effective Dates Status Health Status Inform ant Multiple sclerosis(Confirmed) Active Seizure disorder(Confirmed) Active Trigeminal neuralgia(Confirmed) Active
--- OUTSIDE RECORDS SUMMARY | 2023-08-15 03:13 | XMS_ITS | Continuity of Care Document ---
Author Name Unknown Organization [facility] Address [address] [place] [id number] Care Team Providers Care Doll Dresser Name Role Phone Anupama MURRAY, Derrick Strong Primary Care Physician [phone] Encounter [facility] Date(s): 05/07/23 - 05/08/[address] [id number] Discharge Disposition: A-D/C Home Attending Physician: Sun [...] oral capsule 300 mg, Capsule, By Mouth, 05/08/23 9:00:00 EDT Start Date: 05/08/23 Stop Date: 05/08/23 Status: Completed gabapentin 400 mg oral capsule [...] Start Date: 03/12/22 Status: Ordered Tylenol Tablet 650 mg, Tablet, By Mouth, greater than 101.5, Not to exceed 4 GM of Tylenol per 24 hour period, 05/08/23 11:00:00 EDT Start Date: 05/08/23 Stop Date: 05/08/23 Status: Completed Venlafaxine = 150 mg, By [...] oldest [Reference Range]: 1 2 3 Height 171 cm (05/08/23 3:41 AM) 171 cm (05/07/23 11:06 PM) 171 cm (05/07/23 7:29 PM) Weight 73 kg (05/07/23 11:28 AM) 73 kg (05/06/23 12:59 PM) Oxygen Saturation [94-100 %] 100 % (05/08/23 11:00 AM) 98 % (05/08/23 7:00 AM) 97 % (05/08/23 3:41 AM) Pulse Rate [55-90 bpm] 78 bpm (05/08/23 11:00 AM) 92 bpm *H* (05/08/23 7:00 AM) 90 bpm (05/08/23 3:41 AM) Body Mass Index [18.5-24.99 kg/m2] 24.96 kg/m2 (05/07/23 11:28 AM) 24.96 kg/m2 (05/06/23 12:59 PM) Blood Pressure [90-138/55-84 mm Hg] 148/70mm Hg *H* (05/08/23 11:00 AM) 125/60mm Hg (05/08/23 7:00 AM) 112/54mm Hg (05/08/23 3:41 AM) Respiratory Rate [16-30 br/min] 18 br/min (05/08/23 11:00 AM) 18 br/min (05/08/23 10:35 AM) 18 br/min (05/08/23 10:33 AM) Temperature [96.8-100.4 DegF] 98.1 DegF (05/08/23 11:00 AM) 97.8 DegF (05/08/23 7:00 AM) 98.3 DegF (05/08/23 3:41 AM) Liters per Minute 5 L/min (05/07/23 1:45 PM) Mode of Delivery (Oxygen) Room air (05/08/23 11:00 AM) Room air (05/08/23 7:00 AM) Room air (05/08/23 3:41 AM) Blood pressure sites Arm, left (05/08/23 11:00 AM) Arm, right (05/08/23 7:00 AM) Arm, right (05/08/23 3:41 AM) Temperature Route Oral (05/08/23 11:00 AM) Oral (05/08/23 7:00 AM) Oral (05/08/23 3:41 AM) Dry Weight 73 kg (05/07/23 11:28 AM) 73 kg (05/06/23 12:59 PM) Weight Obtained Via Patient/family stated (05/07/23 11:28 AM) Patient/family stated (05/06/23 12:59 PM) Dry Weight Obtained Via Patient/family stated (05/07/23 11:28 AM) Patient/family stated (05/06/23 12:59 PM) Social History Social History Type Response Smoking Status Never (less than 100 in lifetime) entered on: 04/15/23 Sex Note * Event Display: Adult Preadmission Health Questionnaire Authored Date: * Hollie Briseno RN: PERFORM Event Display: Discharge/Transfer Note Hospital Authored Date: [id number] Nursing Discharge Note Entered On: 05/08/2023 13:21 EDT Performed On: 05/08/2023 13:20 EDT by Hollie Briseno RN Nursing Discharge Note 2 Discharge Time : 05/08/2023 15:20 EDT Hollie Briseno RN - 05/08/2023 16:48 EDT Discharge Level of Care at Discharge : Home/Care Home/Foster Care Patient Left Unit Via : Wheelchair Patient Accompanied Off Unit with : Responsible adult DC Instructions Provided & Signed by Pt : Yes Patient Understands D/C Instructions : Yes Patient Instructions Discharge Signed : Yes Did Pt have Specialty Bed or Wound Vac : No Hollie Briseno RN - 05/08/2023 13:20 EDT * Ángela Segovia: PERFORM, SIGN, VERIFY, MODIFY, SIGN Event Display: Discharge/Transfer Note Hospital Authored Date: Patient: PAWAN DWYER Age: 72 years Sex: Female : 1950 Associated Diagnoses: None Author: Ángela Segovia Discharge Information Preoperative Diagnosis: Multiple sclerosis with left trigeminal neuralgia Preoperative Diagnosis Final Postoperative Diagnosis: Multiple sclerosis with left trigeminal neuralgia Preoperative Diagnosis Operative Procedure: percutaneous retrogasserian glycerol rhizotomy, left Discharge condition: good Compared to admission: improved Functional Status: ambulatory Discharge Disposition Home: self care, family. Discharge Date 05/08/2023 Admission Date 05/07/2023 Hospital Course 72 yo F who presented with symptoms of Lt trigeminal neuralgia, had detailed discussion regarding risks/benefits of intervention and consented for surgery. She is now POD#1. She admits that facial pain has significantly improved since sx. She remained overnight d/t not having someone available at home. She has met DC criteria. She will be discharged this morning. Pt admits that she has OTC Tylenol at home which works adequately for her pain needs. Discharge Plan Diet/Activity/Patient Education/Follow Up Follow Up with: Derrick Altman; Sun Mullen 05/20/2023 1:00 PM. Discharge Disposition Discharge: home. MEDICATION LIST (Selected) Documented Medications Documented Acetaminophen: = 500 mg, By Mouth, 2 times a day, 0 Refills, Maintenance, 03/10/22 15:24:00 EDT, Partial fill upon patient request if the prescription is for a schedule II opioid drug. Cholecalciferol: = 100 mcg, By Mouth, Daily at bedtime, 0 Refills, Maintenance, 05/06/23 12:43:00 EDT, Partial fill upon patient request if the prescription is for a schedule II opioid drug. Dexmethylphenidate: = 15 mg, By Mouth, Daily, 0 Refills, Maintenance, 03/10/22 15:28:00 EDT, Partial fill upon patient request if the prescription is for a schedule II opioid drug. Docusate: = 100 mg, By Mouth, Daily in AM, 0 Refills, Maintenance, 05/06/23 12:08:00 EDT, Partial fill upon patient request if the prescription is for a schedule II opioid drug. Gabapentin: = 300 mg, By Mouth, Daily in AM, 0 Refills, Maintenance, 03/10/22 15:29:00 EDT, Partialfill upon patient request if the prescription is for a schedule II opioid drug. Myfortic: = 360 mg, By Mouth, 2 times a day, 0 Refills, Maintenance, 03/10/22 15:29:00 EDT, Partialfill upon patient request if the prescription is for a schedule II opioid drug. Primidone: 50 mg, By Mouth, Daily at bedtime, Refills 0, Maintenance, 04/15/23 15:53:00 EDT, Partial fill upon patient request if the prescription is for a schedule II opioid drug. TEGretol XR 400 mg oral tablet, extended release: 400 mg, 1, tablet, By Mouth, 2 times a day, # 60 tablet, Refills 5, Maintenance, 03/12/22 10:18:00 EDT, Partial fill upon patient request if the prescription is for a schedule II opioid drug. Venlafaxine: = 150 mg, By Mouth, Daily, 0 Refills, Maintenance, 03/10/22 15:29:00 EDT, Partial fillupon patient request if the prescription is for a schedule II opioid drug. Vitamin C: = 1,000 mg, By Mouth, Daily, 0 Refills, Maintenance, 03/10/22 15:26:00 EDT, Partial fillupon patient request if the prescription is for a schedule II opioid drug. Vitron-C 125 mg-65 mg oral tablet: 1 tablet, By Mouth, Daily, # 60 tablet, 0 Refills, Maintenance, 03/12/22 10:30:00 EDT, Tablet, Partial fill upon patient request if the prescription is for a schedule II opioid drug. atorvastatin 40 mg oral tablet: 1 tablet = 40 mg, By Mouth, Daily at bedtime, # 90 tablet, 0 Refills, Maintenance, 03/12/22 10:15:00 EDT, Tablet, Partial fill upon patient request if the prescriptionis for a schedule II opioid drug. calcitriol 0.5 mcg oral capsule: See Instructions, 1 capsule By Mouth three times a week., 0 Refills, Maintenance, 05/06/23 12:10:00 EDT, Partial fill upon patient request if the prescription is for a schedule II opioid drug. calcium carbonate 500 mg (200 mg elemental calcium) oral tablet, chewable: 1,000 mg, 2, tablet, Chew, Daily at bedtime, PRN, # 60 tablet, Refills 0, Maintenance, as needed for dyspepsia, 03/12/22 10:16:00 EDT, Partial fill upon patient request if the prescription is for a schedule II opioid drug. denosumab: = 60 mg, Subcutaneous Infusion, Every 6 months, 0 Refills, Maintenance, 03/10/22 15:28:00 EDT, Partial fill upon patient request if the prescription is for a schedule II opioid drug. divalproex sodium delayed release: = 500 mg, By Mouth, Daily at bedtime, 0 Refills, Maintenance, 03/12/22 10:24:00 EDT, Partial fill upon patient request if the prescription is for a schedule II opioid drug. gabapentin 400 mg oral capsule: 400 mg, 1, capsule, By Mouth, Daily at bedtime, Refills 0, Maintenance, 03/12/22 10:26:00 EDT, Partial fill upon patient request if the prescription is for a schedule II opioid drug. * Hollie Briseno RN: PERFORM Event Display: Patient Education/Instruction Authored Date: [id number] Inpatient Adult Discharge Instructions [address] [id number] Name: PAWAN DWYER : 1950 Visit: 05/07/2023 10:18:00 Current Date: 05/08/2023 13:21 Account: [id number] Inpatient Adult Discharge Instructions We would like to thank you for allowing us to assist you with your healthcare needs. The following includes patient education materials and information regarding your injury/illness. Our entire staffstrives to provide an excellent experience for our patients and their families. PLEASE ENSURE YOU FOLLOW-UP PER THE INSTRUCTIONS BELOW! ?? YOUR OPINION IS IMPORTANT TO US! Please complete the survey you may receive by mail or email. Your feedback will be used to make improvements to the healthcare experiences of our patients and their families. Surveys are administered by [employer] ?? If further treatment with your primary care physician or another doctor is recommended, it is important for you to keep the appointment. Call your primary care physician or return to the Emergency Department immediately if your condition worsens, fails to improve, or new symptoms develop. If you need to find a doctor, you can call [facility] for a referral at [phone] or toll free at [phone] or log in to [email or web address].. ?? [facility], in keeping with [facility] guidance, no longer requires face masks for staff, patientsor visitors in most situations. Similiar to time spent indoors at other locations, there is the chance that you were exposed to repiratory viruses during your time with us (such as flu or COVID-19). If you develop symptoms concerning for a viral respiratory infection, please seek testing (and treatment if indicated) from your medical provider or home test kit. ?? You can view and manage your care through the patient portal or by using a health care maeve of your choosing. [employer] is a website that allows you to securely view your medical information including your hospital discharge summary, office visit summaries, medications and follow-up visits. You can also request appointments, renew medications, and request access to your medical information using a health care maeve of your choosing, or just ask a question. You can enroll at [email or web address] or register during your next office visit. You have been discharged from [facility], Patient Care Unit: SW6. If you have any questions regarding these instructions after you leave, please call us and we will be happy to assist you. [facility] Your Care Team Attending Physician Sun Mullen MD Discharging Providers Ángela Segovia Reason for Admission TRIGEMINAL NEURALGIA NEUROLYS HEAD NECK OVN [facility] IP Your Diagnosis postop Tests Performed Below is a partial list of the tests performed during your hospitalization. You may have had other tests and procedures not included in this list. Please discuss all test results with your provider. Primary Care Provider Anupama MURRAY, Derrick Strong Advance Directive Health Care Proxy on File Yes - Health Care Proxy Discharge Vitals Temperature: 98.1 DegF Height: 171 cm Pulse Rate: 78 bpm Weight: 73 kg Respiratory Rate: 18 br/min Body Mass Index: 24.96 kg/m2 Systolic Blood Pressure:??148 mm Hg??High Body surface area: 1.86 Diastolic Blood Pressure: 70 mm Hg ?? Oxygen Saturation: 100 % ?? Studies Pending All tests and labs ordered during this hospital stay have been completed unless listed below. Please discuss all pending results with your provider listed above in these instructions. ?? C-Arm > 1 Hour What to do next Instructions From Your Doctor Discharge Orders Scheduled Follow-Up Appointments 2022 1:00 PM EDT ?? Where: [facility] [address] [place] [address] Drive [address] [place] [address]- Status: Pending You Need to Schedule the Following Appointments Follow Up with??Sun Mullen When:??05/20/2023 01:00 PM EDT Where: [address] [place] [address] [place] [address]- Business (1) Follow Up with??Derrick Altman When:??In 0 days Discharge Medications PAWAN DWYER :1950 Visit Date:05/07/2023 Medications: Please continue your medications until treatment is completed or stopped by your provider. Medications not listed below should be discontinued. Discuss any questions related to medications with your provider. What How Much When Instructions Next Dose Unchanged Acetaminophen 500 Milligram Oral Twice a day as prescribed Unchanged Ascorbic Acid (Vitamin C) 1,000 Milligram Oral Daily as prescribed Unchanged ascorbic acid-carbonyl iron (Vitron-C 125 mg-65 mg oral tablet) 1 tab(s) Oral Daily as prescribed Unchanged Atorvastatin (atorvastatin 40 mg oral tablet) 1 tab(s) Oral Daily at Bedtime as prescribed Unchanged Calcitriol (calcitriol 0.5 mcg oral capsule) See instructions 1 capsule By Mouth three times a week. ?? as prescribed Unchanged Calcium Carbonate (calcium carbonate 500 mg (200 mg elemental calcium) oral tablet, chewable) 2 tab(s) Chew Daily at Bedtime as needed for as needed for dyspepsia as prescribed Unchanged Carbamazepine (TEGretol XR 400 mg oral tablet, extended release) 1 tab(s) Oral Twice a day as prescribed Unchanged Cholecalciferol 100 Microgram Oral Daily at Bedtime as prescribed Unchanged denosumab 60 Milligram Subcutaneous Infusion Every 6 months as prescribed Unchanged Dexmethylphenidate 15 Milligram Oral Daily as prescribed Unchanged Divalproex Sodium (divalproex sodium delayed release) 500 Milligram Oral Daily at Bedtime as prescribed Unchanged Docusate 100 Milligram Oral Daily in the morning as prescribed Unchanged Gabapentin 300 Milligram Oral Daily in the morning as prescribed Unchanged Gabapentin (gabapentin 400 mg oral capsule) 1 capsule Oral Daily at Bedtime as prescribed Unchanged Mycophenolate Sodium (Myfortic) 360 Milligram Oral Twice a day as prescribed Unchanged Primidone 50 Milligram Oral Daily at Bedtime as prescribed Unchanged Venlafaxine 150 Milligram Oral Daily as prescribed Test Results Below is a partial list of the most recent Laboratory test results done prior to this discharge. You may have had other tests and procedures not included in this list. Please discuss all test resultswith your provider. Allergies (NKA means No Known Allergies) NKA Problems Active Problems??(4) HTN (hypertension)?? Multiple sclerosis?? Seizure disorder?? Trigeminal neuralgia?? Education Materials Below is the list of Educational Leaflet Providered with your Discharge Instructions. Valuables and Belongings I fully understand and agree that [facility] accepts no responsibility for all my personal property including clothing, toilet articles, radios, jewelry, dentures, hearing aids, rings, money, or any other property that is in my possession or is brought to me after admission. I understand certain valuables may be placed in a hospital safe for a short period of time. I understand that the hospital is not liable for loss or damage due to accident, fire, or other natural occurrence while said property is in the safe. I accept full responsibility for any personal property that I keep with me, and will not hold the hospital responsible in case of loss or disappearance. I acknowledge that i have been encouraged to send valuables and belongings home. ?? Review of Valuable and Belonging List: With patient Disposition of Belongings: Sent home with patient/family Possessions released to: patient Date for Pt to Sign Valuables/Belongings: 05/08/23 12:35:00 ?? Other Discharge Information ? Case Management Discharge Plan?? Discharge Plan?? Discharge Level of Care at Discharge: Home/Care Home/Foster Care ?? Pulmonary Rehab Status?? Pulmonary Rehab Discharge Status?? Respiratory Rate: 18 br/min ? Common Emergency Awareness Tips IS IT A STROKE? Act FAST and Check for these signs: FACE Does the face look uneven? ARM Does one arm drift down? SPEECH Does their speech sound strange? TIME Call at any sign of stroke ?? Heart Attack Signs Chest discomfort: Most heart attacks involve discomfort in the center of the chest and lasts more than a few minutes, or goes away and comes back. It can feel like uncomfortable pressure, squeezing, fullness or pain. Discomfort in upper body: Symptoms can include pain or discomfort in one or both arms, back, neck, jaw or stomach. Shortness of breath: With or without discomfort. Other signs: Breaking out in a cold sweat, nausea, or lightheaded. Remember, MINUTES DO MATTER. If you experience any of these heart attack warning signs, call to get immediate medical attention! ?? Smoking can increase your chances of developing chronic health problems and can cause harmful effects to other family members in your house. If you smoke, you are strongly encouraged to quit. Please call [facility] at [phone] or [phone] ([phone]) or log in to [email or web address] for referrals to smoking cessation programs. ?? 016 Suicide & Crisis Lifeline is available 08/03 if you or someone you know needs to find a reason to keep living. By calling 368 you'll be connected to a skilled, trained counselor at a crisis center in your area. INPATIENT DISCHARGE INSTRUCTIONS SIGNATURE PAGE KATHERINDANNYPAWAN PHILLIPS Location:[facility] Registration Date and Time:05/07/2023 10:18 EDT Primary Care Physician: Anupama MURRAY, Derrick Strong, Attending Physician: Sebas MURRAY, Sun Mcrae, I PAWAN DWYER, have received the above patient education materials/instructions and have verbalized understanding. If ambulance or transport services are being used I further acknowledge being given a choice of service. ?? If you need to contact me, please call me at this number: . Patient/Entry Clerk Name: Patient/Entry Clerk Signature: Relationship to Patient: Witness Name/Signature: Date: * Ángela Segovia: PERFORM, SIGN, VERIFY Event Display: Patient Education Handout Authored Date: Cardiology * Event Display: Cardiac Rhythm Strips Authored Date: Hospital Progress note * Hollie Briseno RN: PERFORM, SIGN, VERIFY Event Display: Progress Note Hospital Authored Date: Patient: PAWAN DWYER Age: 72 years Sex: Female : 1950 Associated Diagnoses: None Author: Hollie Briseno RN Findings Problem Related to Alteration in Comfort : Alteration in Comfort/new 05/08/2023 7:00 EDT Alteration in Comfort Related to Surgery Goals & Outcomes: Comfort Pt will report acceptable level of comfort & pain control, Pt will state importance of adhering to pain strategy regime, Pt will demonstrate necessary skills to manage pain Interventions Implemented: Comfort Assess pain using appropriate pain scale/tools, Assess aggravating factors & prevent them accordingly, Assess alleviating factors & promote them accordingly BH Goals/Interventions, Comfort Yes Comfort, Problem Start 05/07/2023 19:50 Reviewed plan with, Comfort Patient Patient Progression, Comfort Pt progressing according to plan Comfort, Problem Ongoing Yes . Nursing Data Neurological Data. : Neurological Data. 05/08/2023 10:29 EDT Neurological Symptoms Tremors Orientated to person, place, time Person, Place, Time, Event Gait Unsteady Neuro WNL except . Narrative/Incidental P: Alteration in Comfort I: See above care plan E: Upon assessment patient denies pain. Patient is alert and oriented. Tremors at patient baseline noted upon assessment. Patient lung sounds clear on room air. Circulation movement and sensation present upon assessment. No edema noted upon assessment. Patient wearing sequential compression boots. Abdomen is soft round and nontender. Patient having flatulence and belching. Patient tolerating regular diet well. Patient requires 2 assist for ambulation due to weakness at baseline. head contractedto the right at baseline. Patient voiding clear yellow urine without difficulty. Left cheek bandageclean, dry, and intact. Bed is locked and in lowest position. Call ramírez in reach. Patient being discharged. Ride arranged with lift. . * Jada Becerril RN: MODIFY, SIGN, VERIFY, PERFORM Event Display: Progress Note Hospital Authored Date: Patient: PAWAN DWYER Age: 72 years Sex: Female : 1950 Associated Diagnoses: None Author: Jada Becerril RN Findings Problem Related to Alteration in Comfort : Alteration in Comfort/new 05/07/2023 19:00 EDT Alteration in Comfort Related to Surgery Goals & Outcomes: Comfort Pt will report acceptable level of comfort & pain control, Pt will state importance of adhering to pain strategy regime, Pt will demonstrate necessary skills to manage pain Interventions Implemented: Comfort Assess pain using appropriate pain scale/tools, Assess aggravating factors & prevent them accordingly, Assess alleviating factors & promote them accordingly BH Goals/Interventions, Comfort Yes Comfort, Problem Start 05/07/2023 19:50 Reviewed plan with, Comfort Patient Patient Progression, Comfort Plan Initiation Comfort, Problem Ongoing Yes . Nursing Data Vital Signs : VITAL SIGNS SECTION 05/07/2023 19:29 EDT Temperature 97.9 DegF Temperature Route Oral Pulse Rate 87 bpm Respiratory Rate 18 br/min Systolic Blood Pressure 123 mm Hg Diastolic Blood Pressure 58 mm Hg Blood pressure sites Arm, left Mean Arterial Pressure 80 mm Hg Pulse Pressure 65 mm Hg Oxygen Saturation 100 % Mode of Delivery (Oxygen) Room air . Narrative/Incidental AOx3. Pt reports 0/10 pain. Lungs clear to auscultation. Denies shortness of breath or dyspnea. Denies chest pain. Positive pedal pulses. No edema present. Patient tolerating regular diet. Patient denies nausea and vomiting. LBM 05/07. Having loose stools. Positive bowel sounds. Abdomen soft, non-distended, and non-tender to palpation. Left cheek bandaid clean, dry and intact. Stand pivot with oneto two assist. Voiding without issues. Upper side rails up. Call ramírez within reach. Bed in lowest locked position. Will continue to follow comfort status.. * Laurita Montano RN: MODIFY, SIGN, PERFORM, SIGN, VERIFY Event Display: Progress Note Hospital Authored Date: Patient: PAWAN DWYER Age: 72 years Sex: Female : 1950 Associated Diagnoses: None Author: Laurita Montano RN Findings Narrative/Incidental Pt alert and oriented x4. Denied pain. Neuros intact: denied numbness/tingling, equal and strong hand grasps, +[id number], Soft collar in place, LBM 05/04. Stand and pivot transfer to [facility], voided. Pt has MS and uses a wheelchair at baseline. Skin assessment completed with Hamida Miguel RN. All intact except for incision to R cheek. minor bruises on LLE. Baseline RUE tremors. Will continue to monitor. . Patient Care team information Care Team Personnel Name: Shante Cobian RN Position: [facility] RN Member Role: Primary Care Nurse Name: Roxie Acosta RN Position: S RN Member Role: Primary Care Nurse Name: Ileana Daily RN Position: S RN Member Role: Primary Care Nurse Name: Jada Becerril RN Position: S RN Member Role: Primary Care Nurse Name: Derrick Altman MD Position: [facility] Physician (General Medicine) Member Role: PCP Address: Address: [address] [address]- Name: Jorje Muñoz RN Position: S RN Member Role: Primary Care Nurse Care Team Related Persons Name: MERARI VICTOR Address: [place] [address] Name: MYKEL DWYER Address: home [address] [place] [id number] Name: LANDY DWYER Address: [address] [place] [address] Name: DERRICK COX
--- OUTSIDE RECORDS SUMMARY | 2023-08-15 03:13 | XMS_ITS | Continuity of Care Document ---
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
--- OUTSIDE RECORDS SUMMARY | 2023-08-15 03:13 | XMS_ITS | Continuity of Care Document ---
Author Name Unknown Organization [facility] Address [address] [place] [address], [address] [place] [address]- Care Team Providers Care Aircraft Avionics Technician Name Role Phone Yann TAM, Mariposa Quispe Primary Care Physician [phone] Encounter [facility] Date(s): 04/11/20 - 05/11/20 [facility] [address] [place] [address], [address] [place] [address]- [facility] Allergies, Adverse Reactions, Alerts Substance Reaction Severity Status NKA Active
--- OUTSIDE RECORDS SUMMARY | 2023-08-15 03:13 | XMS_ITS | Continuity of Care Document ---
Author Name Unknown Organization [facility] Address [address] [place] [address] [address], [address] [place] [address]- Care Team Providers Care Glove Factory Sewer Name Role Phone Anupama MURRAY, Andrew Strong Primary Care Physician [phone] Encounter [facility] Date(s): 03/10/22 - 04/09/[address], [address] [place] [address]- Allergies, Adverse Reactions, Alerts No Known Allergies [...] Personnel Name: Anupama MURRAY, Andrew Strong Address: [address] [place] [address] Medical [place], [place] [address]
--- OUTSIDE RECORDS SUMMARY | 2023-08-15 03:14 | XMS_ITS | Continuity of Care Document ---
Author Name Unknown Organization [facility] Address [address] [place] [address], [address] [place] [address]- Care Team Providers Care News Assistant Name Role Phone Yann TAM, Mariposa Quispe Primary Care Physician Encounter [facility] Date(s): 04/09/20 - 05/09/20 [facility] [address] [place] [address], [address] [place] [address]- [facility] Allergies, Adverse Reactions, Alerts Substance Reaction Severity Status NKA Active
--- OUTSIDE RECORDS SUMMARY | 2023-08-15 03:14 | XMS_ITS | Continuity of Care Document ---
Author Name Unknown Organization [facility] Address [address] [place] [address], [address] [place] [address]- Care Team Providers Care Closing Machine Operator Name Role Phone Yann TAM, Mariposa Quispe Primary Care Physician [facility]counter [facility] Date(s): 04/26/20 - 05/26/20 [facility] [address] [place] [address], [address] [place] [address]- [facility] Allergies, Adverse Reactions, Alerts Substance Reaction Severity Status NKA Active
--- OUTSIDE RECORDS SUMMARY | 2023-08-15 03:14 | XMS_ITS | Continuity of Care Document ---
Author Name Unknown Organization [facility] Address [address] [place] [address] [address], [address] [place] [address]- Care Team Providers Care Crystalizer Tender Name Role Phone Anupama MURRAY, Derrick Strong Primary Care Physician [phone] Encounter [facility] Date(s): 03/29/23 - 04/28/[address], [address] [place] [address]- Allergies, Adverse Reactions, Alerts No Known Allergies [...] Care Nurse Name: Derrick Altman MD Position: [facility] Physician (General Medicine) Member Role: PCP Address: Address: [address] [place] [address] Medical Group [place], [place] [address] Name: Jorje Mñuoz RN Position: S RN Member Role: Primary Care Nurse Care Team Related Persons Name: MERARI VICTOR Address: [place] [address] Name: MYKEL DWYER Address: home [address] [place] [address] Name: LANDY DWYER Address: home [address] [place] [address] Name: DERRICK COX
--- OUTSIDE RECORDS SUMMARY | 2023-08-15 03:14 | XMS_ITS | Continuity of Care Document ---
Author Name Unknown Organization [facility] Address [address] [place] [address] [address], [address] [place] [address]- Care Team Providers Care Feed Mill Operator Name Role Phone Anupama MURRAY, Andrew Strong Primary Care Physician [phone] Encounter [facility] Date(s): 03/09/22 - 04/08/[address], [address] [place] [address]- Allergies, Adverse Reactions, Alerts No Known Allergies [...]
--- OUTSIDE RECORDS SUMMARY | 2023-08-15 03:14 | XMS_ITS | Continuity of Care Document ---
Author Name Unknown Organization [facility] Address [address] [place], [place] [address] nicolas, [address] [place] [address]- Care Team Providers Care Integrated Pest Management Technician Name Role Phone Anupama MURRAY, Derrick Strong Primary Care Physician [facility] Date(s): 05/06/23 - 06/05/23 [facility] [address] [place] [address] Drive, [address] [place], [place] [address] Allergies, Adverse Reactions, Alerts No Known [...] Care Nurse Name: Ileana Daily RN Position: [facility] RN Member Role: Primary Care Nurse Name: Jada Becerril RN Position: [facility] RN Member Role: Primary Care Nurse Name: Derrick Altman MD Position: [facility] Physician (General Medicine) Member Role: PCP Address: Address: [address] [address] Name: Jorje Muñoz RN Position: [facility] RN Member Role: Primary Care Nurse Care Team Related Persons Name: MERARI VICTOR Address: [place] [address] Name: MYKEL DWYER Address: home [address] [place] [address] Name: LANDY DWYER Address: home [address] [place] [address] Name: DERRICK COX
--- OUTSIDE RECORDS SUMMARY | 2023-08-15 03:14 | XMS_ITS | Continuity of Care Document ---
Author Name Unknown Organization [facility] Address [address] [place] [address], [address] [place] [address]- Care Team Providers Care Transmission Maintenance Supervisor Name Role Phone Yann TAM, Mariposa Quispe Primary Care Physician [phone] Encounter [facility] Date(s): 02/11/21 - 03/13/21 [facility] [address] [place] [address], [address] [place] [address]- Attending Physician: Admtr, Ar8 Admitting Physician: Admtr, Ar8 Referring Physician: Admtr, Ar8 Allergies, Adverse Reactions, Alerts Substance Reaction Severity Status NKA Active
--- OUTSIDE RECORDS SUMMARY | 2023-08-15 03:14 | XMS_ITS | Continuity of Care Document ---
Author Name Unknown Organization [facility] Address [address] [place], [place] [address] nicolas, [address] [place] [address]- Care Team Providers Care Chancery Clerk Name Role Phone Andrew Altman MD Primary Care Physician [place] [facility] [place] 04/21/22 - 04/28/22 [facility] [address] [place] [address] Drive, [address] [place], [place] [address] Attending Physician: Sun Mullen MD Referring Physician: Andrew Altman MD Allergies, Adverse Reactions, Alerts No [...] oldest [Reference Range]: 1 Height 175.26 cm (04/21/22 11:36 AM) Weight 83.8 kg (04/21/22 11:36 AM) Body Mass Index [18.5-24.99] 27.28 *H* (04/21/22 11:36 AM) Care Team Personnel Name: Anupama MURRAY, Andrew Strong Address: [address] [place] [address]
--- OUTSIDE RECORDS SUMMARY | 2023-08-15 03:14 | XMS_ITS | Continuity of Care Document ---
Author Name Unknown Organization [facility] Address [address] [place] [address] [address], [address] [place] [address]- Care Team Providers Care Agency Manager Name Role Phone Anupama MURRAY, Andrew Strong Primary Care Physician [facility] [facility] Date(s): 02/17/22 - 03/28/[address], [address] [place] [address]- Attending Physician: Sun Mullen MD Allergies, Adverse [...]
--- OUTSIDE RECORDS SUMMARY | 2023-08-15 03:14 | XMS_ITS | Continuity of Care Document ---
Author Name Unknown Organization [facility] Address [address] [place] [address] [address], [address] [place] [address]- Care Team Providers Care Pile Trimmer Name Role Phone Anupama MURRAY, Andrew Strong Primary Care Physician [place] [facility] [place](s): 03/10/22 - 04/09/[address], [address] [place] [address]- Allergies, Adverse Reactions, Alerts No Known Allergies [...] Personnel Name: Anupama MURRAY, Andrew Strong Address: [address] [place] [address] Medical [place], [place] [address]
--- NOTE | 2023-08-15 05:27 | ED.FALL ---
HPI - Fall General Chief Complaint: Fall Stated Complaint: fall Time Seen by Provider: 08/15/23 04:47 Source: patient Mode of arrival: EMS Limitations: no limitations History of Present Illness HPI Narrative: 73-year-old female with a history of cellulitis the left ankle, multiple sclerosis who presents emergency department for evaluation of a head injury from a fall. Patient states that she was in her reclining chair and she only had 1 of her shoes on. She stood up to get into her wheelchair, lost her balance and then fell to the floor striking her head. She denied any loss of consciousness. She states she has a very mild headache on the left side of her head where she has a laceration. She had no nausea vomiting or increased weakness. She was not ill in any way prior to the fall. Related Data Home Medications Medication Instructions Recorded Confirmed acetaminophen 500 mg capsule 1,000 mg PO BID PRN Pain 07/24/21 07/24/21 atorvastatin 40 mg tablet 40 mg PO BEDTIME 07/24/21 07/24/21 calcium carbonate 500 mg calcium 1,000 mg PO BEDTIME 07/24/21 07/24/21 (1,250 mg) tablet carbamazepine 400 mg 400 mg PO BID 07/24/21 07/24/21 tablet,extended release,12 hr (Tegretol XR) chlorhexidine gluconate 0.12 % 15 ml buccal BID 07/24/21 07/24/21 mouthwash (Peridex) cholecalciferol (vitamin D3) 125 125 mcg PO DAILY 07/24/21 07/24/21 mcg (5,000 unit) tablet (Vitamin D3) denosumab 60 mg/mL subcutaneous 60 mg subcut [id number] 07/24/21 07/24/21 syringe (Prolia) divalproex 250 mg tablet,delayed 250 mg PO BEDTIME 07/24/21 07/24/21 release (Depakote) divalproex 250 mg tablet,delayed 500 mg PO DAILY 07/24/21 07/24/21 release (Depakote) gabapentin 300 mg capsule 300 mg PO DAILY 07/24/21 07/24/21 gabapentin 400 mg capsule 400 mg PO BEDTIME 07/24/21 07/24/21 hydrochlorothiazide 12.5 mg tablet 12.5 mg PO DAILY 07/24/21 07/24/21 ibuprofen 600 mg tablet 600 mg PO DAILY PRN Pain 07/24/21 07/24/21 iron,carbonyl 65 mg-vitamin C 125 1 tab PO DAILY 07/24/21 07/24/21 mg tablet,delayed release (Vitron-C) methylphenidate HCl 36 mg 36 mg PO DAILY 07/24/21 07/24/21 tablet,extended release 24 hr (Concerta) mycophenolate sodium 360 mg 360 mg PO BEDTIME 07/24/21 07/24/21 tablet,delayed release (Myfortic) mycophenolate sodium 360 mg 720 mg PO DAILY 07/24/21 07/24/21 tablet,delayed release (Myfortic) venlafaxine 150 mg tablet,extended 150 mg PO DAILY 07/24/21 07/24/21 release 24 hr Previous Rx's Medication Instructions Recorded prednisone 10 mg tablet See Taper PO DAILY #40 tabs 08/13/21 Allergies Allergy/AdvReac Type Severity Reaction Status Date / Time No Known Allergies Allergy Unverified 05/02/20 17:41 [No Known Allergies*] Review of Systems Review of Systems: Yes all other systems are reviewed and are negative PMFSH Past Medical History Medical History Seizure disorder Hypertension Depression Anxiety Multiple sclerosis Weakness COVID-19 Surgical History H/O cataract extraction H/O inguinal hernia repair H/O left knee surgery History of appendectomy Family History Family History Father Coronary artery disease Hypertension Social History Social History Household Members: None Household Members Other:: has [employer] assistance at home Housing: Apartment Do you presently have visiting nurse or other home services: Yes Alcohol intake: never Patient Tobacco Use Status: Never used Tobacco Second Hand Smoke Exposure: No Advance Directives: Yes Advance Directives on File: Yes Advance Directives Date on File: 07/24/21 service: No Current occupational status: disabled Physical Exam Vital Signs: Vital Signs: Last Vital Signs Temp 97.6 F 08/15/23 02:20 Pulse 82 08/15/23 02:20 Resp 16 08/15/23 02:20 BP 153/59 H 08/15/23 02:20 Pulse Ox 94 08/15/23 02:20 O2 Del Method Room Air 08/15/23 02:20 BMI result Body Mass Index 21.7 Vital signs revealed an elevated blood pressure of 153/59 otherwise unremarkable Exam: General: Awake, alert in no distress Head: Normocephalic, patient has a 2.0 cm laceration to the left lateral eyebrow are, this is a full skin thickness laceration EENT: PERRL, Lids normal, sclera normal, conjunctiva normal, nose normal , ears normal, throat without erythema or exudates Neck: Supple, no adenopathy, no trachea midline or C-spine tenderness Lung: breath sounds symmetric, no wheezing, rales or rhonchi Chest: symmetric movement, nontender Heart: regular rate and rhythm, normal S1, S2 no murmurs or rubs Abdomen: soft, non-tender, nondistended, normal bowel sounds Back: no vertebral tenderness, no CVAT Extremities: no deformities, moves all extremities symmetrically Skin: no rashes, no lesion, normal color and warmth Neuro: Awake, alert, oriented, normal speech, cranial nerves intact, moves all extremities symmetrically Psych: Pleasant, cooperative Procedures Procedure Narrative Procedure Narrative: Left facial lacerations repair procedure note: Laceration 1) 1.0 cm full skin thickness The laceration was prepped with Betadine then anesthetized 1% lidocaine, the wound was explored and no foreign bodies found in the wound the best my ability. The wound was then closed in 1 layer with 5.0 Prolene sutures x2 sutures. Laceration 2) 1.0 cm full skin thickness The laceration was prepped with Betadine then anesthetized 1% lidocaine, the wound was explored and no foreign bodies found in the wound the best my ability. The wound was then closed in 1 layer with 5.0 Prolene sutures x2 sutures. Laceration 3) 2.5 cm full skin thickness The laceration was prepped with Betadine then anesthetized 1% lidocaine, the wound was explored and no foreign bodies found in the wound the best my ability. The wound was then closed in 1 layer with 5.0 Prolene sutures x 6 sutures. Total of 10 sutures were used to repair the 3 wounds. The patient tolerated the procedure well. The wounds were then dressed with bacitracin and a nonstick dressing. Medical Decision Making Medical Decision Making [facility] Narrative: 73-year-old female with a history of cellulitis the left ankle, multiple sclerosis who presents emergency department for evaluation of a head injury from a fall secondary to losing her balance when trying to transfer from her recliner chair to her wheelchair. Patient did strike her head on the floor and has a laceration left side her head. She had no loss of consciousness. Physical examination did reveal suturable laceration to her left forehead otherwise was unremarkable. Following evaluation was ordered: CT scan of the head, cervical spine and facial bones without IV contrast 05:[address] scans revealed no acute fracture or bleed which is reassuring. After I cleaned the patient up she had 3 distinct lacerations, 2 lacerations that were 1.0 cm in length in 1 laceration which was 2.5 cm in length. All were repaired with 5.0 Prolene sutures the patient tolerated the procedure well. The wounds were covered with bacitracin and nonstick dressing. Patient was advised to apply bacitracin twice a day for 7 days and have the sutures removed between 5 and 7 days. Differential Diagnosis Differential Diagnoses: The differential diagnosis associated with the presentation includes Differential diagnosis includes but is not limited to skull fracture, intracranial bleed, facial fracture, neck fracture, contusions, muscle strain, laceration Admission/Observation Consideration of admission/observation: Escalation of care including admission/observation considered Radiology Impression Discussion of test interpretation with radiology: I have reviewed the radiologist's reading. Radiologist Impression: CT head/brain, cervical spine and facial bones wo IV con IMPRESSION: 1. No acute intracranial pathology. Mild chronic white matter microangiopathy. 2. No acute facial bone fracture. 3. No acute cervical spine fracture or malalignment. Multilevel degenerative changes of the cervical spine. Dictated By: Earl Pryor Chronic Conditions Patient?s care impacted by: Other (Multiple sclerosis) Discharge Plan Discharge Clinical Impression: Fall Qualifiers: Encounter type: initial encounter Qualified Code(s): W19.XXXA - Unspecified fall, initial encounter Closed head injury Qualifiers: Encounter type: initial encounter Qualified Code(s): S09.90XA - Unspecified injury of head, initial encounter Contusion of face Qualifiers: Encounter type: initial encounter Qualified Code(s): S00.83XA - Contusion of other part of head, initial encounter Face lacerations Qualifiers: Encounter type: initial encounter Qualified Code(s): S01.81XA - Laceration without foreign body of other part of head, initial encounter Patient Disposition: Home, Self-Care Instructions: Laceration (ED), Head Injury (ED) Additional Instructions: the CT scan of your head, neck and face revealed no broken bones or bleeding in the brain which is reassuring. You had 3 lacerations to your face, two 1.0 cm lacerations (2 sutures each) and one 2.5 cm laceration (6 sutures) for a total of 10 sutures. Apply bacitracin twice a day to the wounds until the sutures are removed between 5 in 10 days. Watch for signs of infection which include increased redness, increased swelling, increased pain, drainage of pus, red streaks going away from the wound If you think the wound is infected follow-up with your primary care provider or return to emergency department for re-evaluation Follow-up with your doctor in 2 days. Please return to the emergency department if your symptoms get worse or if you develop any symptoms that are concerning to you. Prescriptions: No Action atorvastatin 40 mg Tablet 40 mg PO BEDTIME divalproex [Depakote] 250 mg Tablet,Delayed Release (Dr/Ec) 500 mg PO DAILY divalproex [Depakote] 250 mg Tablet,Delayed Release (Dr/Ec) 250 mg PO BEDTIME gabapentin 400 mg Capsule 400 mg PO BEDTIME carbamazepine [Tegretol XR] 400 mg Tablet Extended Release 12 Hr 400 mg PO BID calcium carbonate 500 mg calcium (1,250 mg) Tablet 1,000 mg PO BEDTIME gabapentin 300 mg Capsule 300 mg PO DAILY ibuprofen 600 mg Tablet 600 mg PO DAILY PRN (Reason: Pain) acetaminophen 500 mg Capsule 1,000 mg PO BID PRN (Reason: Pain) methylphenidate HCl [Concerta] 36 mg Tablet Extended Release 24hr 36 mg PO DAILY mycophenolate sodium [Myfortic] 360 mg Tablet,Delayed Release (Dr/Ec) 360 mg PO BEDTIME mycophenolate sodium [Myfortic] 360 mg Tablet,Delayed Release (Dr/Ec) 720 mg PO DAILY chlorhexidine gluconate [Peridex] 0.12 % Mouthwash 15 ml BUCCAL BID hydrochlorothiazide 12.5 mg Tablet 12.5 mg PO DAILY venlafaxine 150 mg Tablet Extended Release 24hr 150 mg PO DAILY cholecalciferol (vitamin D3) [Vitamin D3] 125 mcg (5,000 unit) Tablet 125 mcg PO DAILY Prolia 60 mg/mL Syringe 60 mg SUBCUT [id number] Vitron-C 65 mg iron- 125 mg Tablet,Delayed Release (Dr/Ec) 1 tab PO DAILY prednisone 10 mg tablet See Taper PO DAILY Qty: 40 0RF Taper: Prednisone 40 mg daily for 4 Days and 0 Hour 30 mg daily for 4 Days and 0 Hour 20 mg daily for 4 Days and 0 Hour 10 mg daily for 4 Days and 0 Hour Rx Instructions: Take 40mg x 4 days, then 30 mg x 4 days, 20mg x 4 days, 10mg x 4 days
[2023-08-15] MEDS: Lidocaine HCl 1 % MPF 5 ML VIAL INFILTRATI ×2 (06:48→06:49)
[2023-08-15] MEDS: Bacitracin Oint 0.9 GM PACKET 1 APPL TOPICAL (06:50)
[2023-08-15 07:10] VITALS: BP 152/80; PULSE 97; RESP 18; TEMP 36.6; O2SAT 95
--- NOTE | 2023-08-15 07:22 | PC.NURSE ---
pt awaiting transport home, bacitracin applied to L eyebrow
== END 2023-08-15 08:49 | disposition home or self-care (01) ==
PROVIDERS: Emergency Provider Emergency Medicine Emergency Medical Services
DX: S00.83XA Contusion of other part of head, initial encounter (principal); S01.81XA Laceration without foreign body of other part of head, initial encounter; W19.XXXA Unspecified fall, initial encounter; Y93.9 Activity, unspecified; Y92.9 Unspecified place or not applicable; Y99.9 Unspecified external cause status
CPT/HCPCS: 12013; 70450; 70486; 72125; 99284